=== PATIENT | female | born 1960 | race Caucasian/White ===

== ENCOUNTER → 2016-12-17 | Outpatient (CLI) | payer OTHER ==
[~2016-12-17] MED LIST: ALLO1TAB51 PO; ATEN-173 PO; CLB/200 PO; ESTR1TAB2 PO; FLUV100T2 PO; MULT-506 PO; SUMA100T15 PO; TRIATAB3 PO; URC10 PO
[2016-12-17 18:28] LABS: ALT/SGPT 33 U/L (12-78); AST/SGOT 28 U/L (15-37); BLOOD UREA NITROGEN 18 mg/dl (7-18); CALCIUM 8.7 mg/dl (8.5-10.1); CARBON DIOXIDE 29 mmol/L (21-32); CHLORIDE 103 mmol/L (98-107); CREATININE 0.79 mg/dl (0.60-1.20); GLUCOSE 76 mg/dl (70-99); POTASSIUM 3.9 mmol/L (3.5-5.1); SODIUM 139 mmol/L (136-145)
[2016-12-17 18:38] LABS: ALB/GLOB RATIO 0.9 (0.9-2); ALKALINE PHOSPHATASE 66 U/L (45-117)
[2016-12-18 06:14] LABS: ESTIMATED AVERAGE GLUCOSE 114 mg/dl; HA1C FLAG Normal (Normal)
== END | disposition home or self-care (01) ==
LOC: C.LABMFLN 12:17
PROVIDERS: ATTEND Family Medicine
DX: I10 Essential (primary) hypertension (principal); R53.83 Other fatigue

== ENCOUNTER → 2017-01-16 | Outpatient (CLI) | payer OTHER ==
--- NOTE | 2017-01-16 10:59 | DIAGNOSTIC IMAGING REPORT ---
KUB HISTORY: Acute pain and discomfort in the region of the urinary bladder with painful urination. N20.0 [id number] COMPARISON: KUB 03/11/2015. FINDINGS: The bowel gas pattern is non-obstructive. Moderate stool burden. There is no organomegaly. Bilateral nephrolithiasis is again seen with the previously noted 6 mm calculus of the interpolar right kidney not definitely visualized on today's study. No definite ureteral calculi identified. Calcifications of the pelvis suggest phleboliths.. No pneumoperitoneum or pneumatosis. No fracture. Right hip arthroplasty. Prior posterior decompression with discectomy, interbody kayden and screw fusion at L4-S1. IMPRESSION: 1. Bilateral nephrolithiasis with previously noted 6 mm calculus of the interpolar right kidney no longer identified. 2. No definite ureteral calculi. Calcifications of the pelvis suggest phleboliths. 3. Moderate stool burden. Electronically signed by: Bradley Guy M.D. 01/16/2017 10:58 AM Dictated Date/Time: 01/16/2017 10:55 AM
== END | disposition home or self-care (01) ==
LOC: C.RAD 10:20
PROVIDERS: ATTEND Urology
DX: N20.0 Calculus of kidney (principal)

== ENCOUNTER 2021-08-30 11:09 | Observation (INO) ==
--- NOTE | 2021-08-16 09:14 | PAT Medication Instructions ---
Medication Instructions Date of Service August 16, 2021 Home Medications ascorbic acid (vitamin C) 1,000 mg tablet 1 g PO QAM atenolol 25 mg tablet 25 mg PO HS atorvastatin 10 mg tablet 10 mg PO HS cholecalciferol (vitamin D3) 25 mcg (1,000 unit) chewable tablet 25 mcg PO QAM clonazepam 0.5 mg tablet 0.5 mg PO DAILY PRN 0 duloxetine 60 mg capsule,delayed release 60 mg PO QAM fluvoxamine 100 mg tablet 300 mg PO HS meloxicam 15 mg tablet 15 mg PO QAM multivitamin 1 tab PO QAM quetiapine 100 mg tablet (Seroquel) 150 mg PO HS sumatriptan succinate 100 mg tablet 100 mg PO UD PRN triamterene 37.5 mg-hydrochlorothiazide 25 mg tablet 1 tab PO QAM vitamin B complex 1 tab PO QAM levothyroxine 50 mcg tablet (Synthroid) 50 mcg PO QAM ASK your surgeon for instructions meloxicam 15 mg tablet 15 mg PO QAM DO NOT take the morning of surgery ascorbic acid (vitamin C) 1,000 mg tablet 1 g PO QAM cholecalciferol (vitamin D3) 25 mcg (1,000 unit) chewable tablet 25 mcg PO QAM multivitamin 1 tab PO QAM triamterene 37.5 mg-hydrochlorothiazide 25 mg tablet 1 tab PO QAM vitamin B complex 1 tab PO QAM Take morning of surgery With a small sip of water, OTHERWISE NOTHING TO EAT OR DRINK AFTER MIDNIGHT: clonazepam 0.5 mg tablet 0.5 mg PO DAILY PRN (if needed) duloxetine 60 mg capsule,delayed release 60 mg PO QAM sumatriptan succinate 100 mg tablet 100 mg PO UD PRN (if needed) levothyroxine 50 mcg tablet (Synthroid) 50 mcg PO QAM Take evening before surgery atenolol 25 mg tablet 25 mg PO HS atorvastatin 10 mg tablet 10 mg PO HS clonazepam 0.5 mg tablet 0.5 mg PO DAILY PRN (if needed) fluvoxamine 100 mg tablet 300 mg PO HS quetiapine 100 mg tablet (Seroquel) 150 mg PO HS sumatriptan succinate 100 mg tablet 100 mg PO UD PRN (if needed) Other Notes If you have any questions please call us at [phone] or [phone] or [phone] or [phone]
--- NOTE | 2021-08-17 09:16 | Anesthesiology Consultation ---
Date of Service August 17, 2021 Assessment & Plan (1) Encounter for pre-operative examination: - surgeon ordered medical clearance. - COVID screening: Per assessment on 08/17/2021: Travel screen negative, no known COVID-19 positive contacts or current COVID-19 related symptoms in past 2 weeks. Patient vaccinated. Surgeon arranging preop COVID testing, scheduled 08/25/2021. Awaiting results. Chart Review Chart Review: Pending: Refer to Additional Notes / Consult section and Patient seen in Pre Admission Testing Teaching & Discussion Pre-Anesthesia Teaching/Discussion Notes: Instructed NPO after midnight before surgery, except medications with 15 cc of water. Medication instructions provided according to the PAT guidelines. History Surgery Operation Date: 08/30/21 12:45 Proposed Procedures p L3-L4 Decompression and Fusion, L4-S1 Hardware Removal, Spinal Cord Monitoring - Flip Briscoe, DO Height/Weight Height: 5 ft 6 in Weight: 114.6 kg Allergies Allergy/AdvReac Type Severity Reaction Status Date / Time Iodinated Contrast Media Allergy Intermediate HIVES Verified 08/16/21 08:24 adhesive Allergy Mild RASH Verified 08/16/21 08:24 pollen extracts Allergy Unknown POLLEN,TREE, Verified 08/16/21 08:24 DOG AND CAT DANDER-COUGH, SNEEZING sulindac Allergy Unknown THROAT Verified 08/16/21 08:24 SWELLED cortisone AdvReac Unknown PT Verified 08/17/21 09:43 DEVELOPS RASH AND FLUSHING ON FACE AND CHEST Medications Home Medications Medication Instructions Recorded Confirmed Last Taken ascorbic acid (vitamin C) 1,000 mg 1 g PO QAM tab 06/23/21 08/16/21 Unknown tablet atenolol 25 mg tablet 25 mg PO HS 06/23/21 08/16/21 Unknown atorvastatin 10 mg tablet 10 mg PO HS 06/23/21 08/16/21 Unknown cholecalciferol (vitamin D3) 25 25 mcg PO QAM 06/23/21 08/16/21 Unknown mcg (1,000 unit) chewable tablet clonazepam 0.5 mg tablet 0.5 mg PO DAILY PRN 06/23/21 08/16/21 Unknown duloxetine 60 mg capsule,delayed 60 mg PO QAM 06/23/21 08/16/21 Unknown release fluvoxamine 100 mg tablet 300 mg PO HS tab 06/23/21 08/16/21 Unknown meloxicam 15 mg tablet 15 mg PO QAM 06/23/21 08/16/21 Unknown multivitamin 1 tab PO QAM 06/23/21 08/16/21 Unknown quetiapine 100 mg tablet (Seroquel) 150 mg PO HS tab 06/23/21 08/16/21 Unknown sumatriptan succinate 100 mg tablet 100 mg PO UD PRN tab 06/23/21 08/16/21 Unknown triamterene 37.5 1 tab PO QAM 06/23/21 08/16/21 Unknown mg-hydrochlorothiazide 25 mg tablet vitamin B complex 1 tab PO QAM 06/23/21 08/16/21 Unknown levothyroxine 50 mcg tablet 50 mcg PO QAM 08/16/21 08/16/21 Unknown (Synthroid) Past Medical History Medical History (Updated 08/17/21 @ 09:45 by Aurora Casey PA-C) Acute ITP related to > no issues since Anxiety Degenerative disc disease GERD (gastroesophageal reflux disease) no meds-controlled with diet and TUMS prn, stable per pt History of blood transfusion 1984-ITP History of COVID-2019 > not hospitalized Hyperlipidemia Hypertension controlled, stable per pt Hypothyroidism Lumbar stenosis with neurogenic claudication Migraine Slow to wake up after anesthesia on occasion Patient denies h/o stroke, seizures, heart attack, heart failure, DM, or blood clots. Exercise / Class Metabolic Activity II 4-5 Yardwork/Stairs/Walk up hill (chronic SOB with 1 FOS, states echo and EKG by PCP were negative and it was attributed to COVID illness; denies change or worsening, denies CP) Past Family History Family History Grandmother (Paternal) Diabetes Mother Diabetes Past Surgical History Surgical History Fusion of spine lumbar unsure of numbers History of ankle surgery right History of section x2 History of cholecystectomy History of colonoscopy History of esophagogastroduodenoscopy (EGD) History of hysterectomy History of lithotripsy x several History of tooth extraction History of total hip arthroplasty right Past Anesthesia History Other (occ slow to wake up-denies re-intubation or unanticipated hospitaliz ation; brother with PONV) History of PONV History of PONV (denies needing scop patch) and Hx of Motion Sickness Social History Smoking Status: Never smoker Do You Dip or Chew Tobacco: No Hx Alcohol Use: Yes alcohol intake frequency: holidays/special occasions only Hx Substance Use: No substance use type: does not use Review of Systems Snoring, denies witnessed apneas. She states sleep study several yrs ago inconclusive. Patient denies chest pain, shortness of breath, fever, chills, cough, wheezing, or palpitations. Physical Exam Vital Signs Vitals BP 115/79 P 73 TEMP 98.6 SP02 98% on RA RESP 17 Physical Thick neck Full cervical extension range of motion without pain TMD < 3 finger breaths Mallampati Score 3 Dentition: intact, several missing teeth; denies chipped or loose teeth, caps/crowns, implants or bridges Lungs: normal respiratory effort. Clear throughout to auscultation, no adventitious breath sounds Cardiac: regular rate and rhythm, no murmurs noted Carotid arteries: negative bruit bilat Lab Results Anesthesia Preop Results Results Anesthesia Widget: WBC 5.57 K/uL (4.8-10.8) 08/17/21 Hgb 14.7 g/dL (12.0-16.0) 08/17/21 Hct 44.4 % (37-47) 08/17/21 Plt 232 K/uL (130-400) 08/17/21 Na 140 mmol/L (136-145) 08/17/21 K 4.3 mmol/L (3.5-5.1) 08/17/21 Cl 102 mmol/L (98-107) 08/17/21 CO2 29 mmol/L (21-32) 08/17/21 BUN 20 mg/dl (6-23) 08/17/21 Creat 0.84 mg/dl (0.6-1.2) 08/17/21 Glucose Level 109 mg/dl (70-99(Fasting)) H 08/17/21 PT 10.4 Seconds (9.0-12.0) 08/17/21 PTT 27.7 Seconds (21.0-31.0) 08/17/21 INR 1.0 (0.9-1.1) 08/17/21 Urine Color Yellow 08/17/21 Urine Appearance Clear (Clear) 08/17/21 Urine pH 6.5 (4.5-7.5) 08/17/21 Urine Specific [place] 1.019 (1.000-1.030) 08/17/21 Urine Protein Negative (Negative) 08/17/21 Urine Glucose (UA) Negative (Negative) 08/17/21 Urine Ketones Negative (Negative) 08/17/21 Urine Blood Negative (Negative) 08/17/21 Urine Nitrite Negative (Negative) 08/17/21 Urine Bilirubin Negative (Negative) 08/17/21 Urine Urobilinogen Negative (Negative) 08/17/21 Urine Leukocyte Esterase 2+ (Negative) H 08/17/21 Urine WBC (Auto) 5-10 /hpf (0-5) H 08/17/21 Urine RBC (Auto) 0-4 /hpf (0-4) 08/17/21 Urine Hyaline Casts (Auto) 0 /lpf (0-5) 08/17/21 Urine Epithelial Cells (Auto) >30 /lpf (0-5) H 08/17/21 Urine Bacteria (Auto) Negative (Negative) 08/17/21 Blood Type O Positive 08/17/21 Antibody Screen NEGATIVE 08/17/21 Testing Electrocardiogram Date: 08/17/21 NSR, rate 74 bpm Chest X-Ray Date: 08/17/21 The cardiomediastinal silhouette is unremarkable. The lungs and pleural spaces are clear. There is no pneumothorax. The skeletal structures are osteopenic. Degenerative changes noted in the thoracic spine. The bony thorax appears intact. Cholecystectomy clips are noted in the upper abdomen. IMPRESSION: No active disease in the chest. Echocardiogram Date: 03/29/20 EF 65% Normal LV size and systolic function No cLVH Data inconclusive for analysis of diastolic function No significant valvular abnormalities
[~2021-08-30 11:09] MED LIST changes: +ACETAMINOPHEN 500 MG TAB PO SCH; -ALLO1TAB51 PO; -ATEN-173 PO; -CLB/200 PO; +CeleBREX 200 MG CAP PO SCH; -ESTR1TAB2 PO; -FLUV100T2 PO; +GABAPENTIN 600 MG DOSE PO SCH; +LR 15ML/HR IV SCH; -MULT-506 PO; -SUMA100T15 PO; -TRIATAB3 PO; -URC10 PO; +[UNRECOGNIZED DRUG - REMARK] SCH; +ceFAZolin 2000MG 2,000 MG/15 ML SYR IV SCH
[2021-08-30] MEDS ORDERED: Nursing to Pharmacy Communication SCH (12:00)
[2021-08-30] MEDS ORDERED: fentaNYL citrate 100 MCG/2 ML VIAL ONE ×3 (13:05→16:40)
[2021-08-30] MEDS ORDERED: MIDAZOLAM HCL 1 MG/ML 2ML VIAL ONE (13:05)
--- NOTE | 2021-08-30 13:11 | History & Physical Report ---
Date of Service August 30, 2021 Assessment & Plan (1) Lumbar stenosis with neurogenic claudication: Plan: L3-L4 decompression fusion, L4-S1 hardware removal History of Present Illness Chief Complaint: Back and leg pain Primary Care Provider: Marla Eric DO This is a 61-year-old female who presents with chronic chest and back and bilateral leg pain after failed extensive course of nonoperative care she is here for surgical invention. Allergies Allergy/AdvReac Type Severity Reaction Status Date / Time Iodinated Contrast Media Allergy Intermediate HIVES Verified 08/30/21 11:38 adhesive Allergy Mild RASH Verified 08/30/21 11:38 pollen extracts Allergy Unknown POLLEN,TREE, Verified 08/30/21 11:38 DOG AND CAT DANDER-COUGH, SNEEZING sulindac Allergy Unknown THROAT Verified 08/30/21 11:38 SWELLED cortisone AdvReac Unknown PT Verified 08/30/21 11:38 DEVELOPS RASH AND FLUSHING ON FACE AND CHEST Home Medications Medication Instructions Recorded Confirmed Type ascorbic acid (vitamin C) 1,000 mg 1 g PO QAM tab 06/23/21 08/30/21 History tablet atenolol 25 mg tablet 25 mg PO HS 06/23/21 08/30/21 History atorvastatin 10 mg tablet 10 mg PO HS 06/23/21 08/30/21 History cholecalciferol (vitamin D3) 25 25 mcg PO QAM 06/23/21 08/30/21 History mcg (1,000 unit) chewable tablet clonazepam 0.5 mg tablet 0.5 mg PO DAILY PRN 06/23/21 08/30/21 History duloxetine 60 mg capsule,delayed 60 mg PO QAM 06/23/21 08/30/21 History release fluvoxamine 100 mg tablet 300 mg PO HS tab 06/23/21 08/30/21 History meloxicam 15 mg tablet 15 mg PO QAM 06/23/21 08/30/21 History multivitamin 1 tab PO QAM 06/23/21 08/30/21 History quetiapine 100 mg tablet (Seroquel) 150 mg PO HS tab 06/23/21 08/30/21 History sumatriptan succinate 100 mg tablet 100 mg PO UD PRN tab 06/23/21 08/30/21 History triamterene 37.5 1 tab PO QAM 06/23/21 08/30/21 History mg-hydrochlorothiazide 25 mg tablet vitamin B complex 1 tab PO QAM 06/23/21 08/30/21 History levothyroxine 50 mcg tablet 50 mcg PO QAM 08/16/21 08/30/21 History (Synthroid) Past Med/Surg History Medical History Acute ITP related to > no issues since Anxiety Degenerative disc disease GERD (gastroesophageal reflux disease) no meds-controlled with diet and TUMS prn, stable per pt History of blood transfusion 1984-ITP History of COVID-19 2019 > not hospitalized Hyperlipidemia Hypertension controlled, stable per pt Hypothyroidism Lumbar stenosis with neurogenic claudication Migraine Slow to wake up after anesthesia on occasion Surgical History Fusion of spine lumbar unsure of numbers History of ankle surgery right History of section x2 History of cholecystectomy History of colonoscopy History of esophagogastroduodenoscopy (EGD) History of hysterectomy History of lithotripsy x several History of tooth extraction History of total hip arthroplasty right Family History Grandmother (Paternal) Diabetes Mother Diabetes Social History Smoking Status: Never smoker Second Hand Exposure: No; Do You Dip or Chew Tobacco: No; Tobacco Cessation Education Requested by Patient: No Hx Alcohol Use: Yes Hx Substance Use: No Preferred Language: [place] Communication Ability: Effective Register Of Deeds Required: No Beliefs That Will Affect Care: None Current Living Situation: Spouse Other Information That Helps Us Care for You: No Feels Safe at Home: Yes Safety Concerns: Feels Safe At This Time Assistive Devices: Glasses Physical Exam Physical Exam: Patient is alert and oriented Heart regular rate and rhythm Lungs clear Results & Data Results & Data ([facility]) Vital Signs (Past 12 Hours) Vital Signs Temp Pulse Resp BP Pulse Ox 08/30/21 11:44 37 C 96 H 18 142/81 H 95
--- NOTE | 2021-08-30 13:11 | History & Physical Bridge Note ---
Date of Service August 30, 2021 History & Physical Bridge Note I have examined the patient, reviewed the History & Physical and in the interval since the performance of the History & Physical I have noted the following changes of clinical significance: no changes noted
[2021-08-30] MEDS ORDERED: ceFAZolin 330 MG/ML 1 GM VIAL ONE (13:44)
[2021-08-30] MEDS ORDERED: BUPIVACAINE/EPINEPHRINE 0.25% 1:200,000 30 ML VIAL ONE (13:44)
[2021-08-30] MEDS ORDERED: PROPOFOL IV EMULSION 10 MG/ML 20 ML VIAL IV ONE (16:02)
[2021-08-30] MEDS ORDERED: ROCURONIUM BROMIDE 10 MG/ML 5 ML VIAL IV ONE (16:02)
[2021-08-30] MEDS ORDERED: NEOSTIGMINE METHYLSULFATE 1 MG/ML 10ML VIAL ONE (16:02)
[2021-08-30] MEDS ORDERED: SUCCINYLCHOLINE CHLORIDE 20 MG/ML 10 ML VIAL IV ONE (16:02)
[2021-08-30] MEDS ORDERED: LIDOCAINE 2% 2 ML VIAL/AMP(20MG/ML) INFIL ONE (16:02)
[2021-08-30] MEDS ORDERED: GLYCOPYRROLATE 0.2 MG/ML VIAL ONE (16:02)
--- NOTE | 2021-08-30 16:07 | Operative Report ---
Post Operative Report Pre & Post Diagnosis Operation Date: 08/30/21 12:45 Pre-Op Diagnosis: Spinal Stenosis, Lumbar Region with Neurogenic Claudication Post-Op Diagnosis: Spinal Stenosis, Lumbar Region with Neurogenic Claudication I identified the patient and participated in the time-out.: Yes Procedure Operation Date: 08/30/21 12:45 Actual Procedures #1 removal of posterior instrumentation L4-L5 L5-S1. #2 exploration of fusion L4-L5 L5-S1. #3 lumbar decompression bilateral medial facetectomies and foraminotomies L to L3 L3-L4. #4 posterior spinal fusion L3-L4. #5 placement posterior instrumentation L3-L4. #6 interbody fusion L3-L4. #7 placement of Spira 13 x 26 mm cage at L3-L4. #8 placement locally harvested morselized autograft in the posterior gutters. #9 placement of I factor combined with V toss in the interbody space and posterior lateral gutters. Surgeon Flip Briscoe, DO Product Manufacturing Professional Hiwot Decker Estimated Blood Loss 250 Findings See Below The patient is 5 foot 6 weighing over 115 kg with a BMI in excess of 41. Patient's body habitus did contribute to significant technical difficulty required deepest retractors longus instruments in order to perform her procedure. This had at least 50% increased operative time. Specimens None Indications This is a 61-year-old female known to me the presents with above-mentioned diagnosis after failed course of nonoperative care is here for the above- mentioned procedure. Description of Procedure Patient was met with identified informed consent obtained. Patient was then taken to the operative suite underwent ablation placed in a prone position the Tristan table on top of the Ever frame. All bony prominences well-padded eyes inspected to ensure no external pressure placed upon the. This point lumbar spine was prepped and draped in normal sterile fashion. Sharp dissection with the assistance of Bovie cautery was performed down to and exposing the lamina and transverse processes of L3 and instrumentation at L4-L5 and S1 levels bilaterally. I then proceeded move the hardware bilaterally explore the fusion mass noting it to be mature and intact. Then performed a complete laminectomy of L3 partial laminectomy of L2 including bilateral medial facetectomies and foraminotomies addressing severe spinal stenosis. Pedicle screws then placed in L3-L4 bilaterally with assistance of fluoroscopy and the proper sized kayden placed. Bilateral transforaminal approach on the right a complete discectomy of L3-L4 was performed endplates curetted to subcortical bleeding bone and a 13 x 26 mm spiral cage filled with I factor was tapped in position. The rods then compressed locked in final position bilaterally. The transverse processes of L3 and L4 burred to subcortically bone. I factor combined with V toss and locally harvested morselized autograft was placed in the posterior gutters. 15 round ELE drain inserted. The incision was then closed with 1 Vicryl the fascia 2-0 Vicryl subcutaneously and 4 Monocryl for final skin closure. Steri-Strip sterile dressings placed. Patient waken taken to PACU stable condition. Please note spinal cord monitoring was utilized at the procedure no changes noted. Lastly Hiwot Decker was present out the entire surgery and while the patient positioning complex portions of the surgery and fascial closure. I attest to the content of the Intraoperative Record and any orders documented therein. Any exceptions are noted below.
--- NOTE | 2021-08-30 16:11 | Fluoroscopy Report ---
FL lumbar spine 2-3V CLINICAL HISTORY: L3-L4 DECOMPRESSION FUSION L4-S1 HW REMOVAL COMPARISON STUDY: None. FLUOROSCOPY TIME: 15 second. FINDINGS: 2 fluoroscopic spot images of the lumbar spine demonstrate posterior decompression and fusi on at L3-L4 with pedicle screws and rods. A disc spacer is in place. The hardware appears intact. IMPRESSION: Fluoroscopic assistance provided for L3-L4 posterior decompression and fusion. ACT 112: Negative or not required by law. Electronically signed by: Martín Kang M.D. 08/30/2021 4:10 PM
[2021-08-30] MEDS ORDERED: FLOSEAL HEMOSTATIC MATRIX 10ML TOP ONE (16:25)
[2021-08-30] MEDS ORDERED: ePHEDrine sulfate 50 MG/ML AMP IV PRN (16:40)
[2021-08-30] MEDS ORDERED: ONDANSETRON INJ 2 MG/ML 2 ML VIAL IV PRN ×2 (16:40→18:55)
[2021-08-30] MEDS ORDERED: ATROPINE SULFATE 0.1 MG/ML 10ML SYR IV PRN (16:40)
[2021-08-30] MEDS ORDERED: MEPERIDINE HCL 25 MG/ML CARP/VIAL IV PRN (16:40)
[2021-08-30] MEDS: fentaNYL citrate 100 MCG/2 ML VIAL IV PRN ×4 (16:45→17:00)
[2021-08-30] MEDS: MoRPHine SULFATE 10 MG/ML CARP/VIAL IV PRN ×5 (17:08→17:30)
[2021-08-30] MEDS ORDERED: HYDROmorphone INJ 2 MG/ML SYR/VIAL IV PRN (17:38)
--- NOTE | 2021-08-30 18:23 | Anesthesiology Progress Note ---
Date of Service August 30, 2021 Anesthesia Post Procedure Vital Signs Vital Signs: Temp Pulse Pulse Resp BP Pulse Ox 08/30/21 18:10 82 16 103/76 99 08/30/21 18:00 36.8 C 94 H 12 117/71 99 08/30/21 17:50 81 12 117/74 99 08/30/21 17:40 83 12 96/71 L 98 08/30/21 17:30 88 12 121/84 99 08/30/21 17:20 83 12 125/72 100 08/30/21 17:10 79 12 133/83 92 08/30/21 17:00 75 14 135/89 100 08/30/21 16:50 82 14 121/85 100 08/30/21 16:40 84 15 144/78 H 100 08/30/21 16:31 36.1 C L 87 14 153/75 H 94 08/30/21 11:44 37 C 96 H 18 142/81 H 95 Pain Intensity Back: Pain Intensity: 6 Transfer of Care Handoff Completed per policy Notes Mental Status: alert / awake / arousable Patient Amnestic to Procedure: Yes Nausea / Vomiting: adequately controlled Pain: adequately controlled Airway Patency, RR, SpO2: stable & adequate BP & HR: stable & adequate Hydration State: stable & adequate Anesthetic Complications: no major complications apparent and Pt Satisfied with anesthetic care
[2021-08-30] MEDS ORDERED: ACETAMINOPHEN 500 MG TAB PO PRN (18:55)
[2021-08-30] MEDS ORDERED: DO NOT ADMINISTER FLU VACCINE PRN (18:55)
[2021-08-30] MEDS ORDERED: ALUMINUM/MAGNESIUM SUSP 30 ML UDC PO PRN (18:55)
[2021-08-30] MEDS ORDERED: diphenhydrAMINE Capsule 25 MG CAP PO PRN (18:55)
[2021-08-30] MEDS ORDERED: hydrOXYzine HCl 25 MG TAB PO PRN (18:55)
[2021-08-30] MEDS ORDERED: LORazepam 2 MG/1 ML VIAL IV PRN (18:55)
[2021-08-30] MEDS ORDERED: METOCLOPRAMIDE HCL INJ 5 MG/ML 2 ML VIAL IV PRN (18:55)
[2021-08-30] MEDS ORDERED: NALOXONE HCL 0.4 MG/1 ML VIAL/CARP IV PRN (18:55)
[2021-08-30] MEDS ORDERED: HYDROmorphone INJ 0.5 MG/0.5 ML SYR IV PRN (18:55)
[2021-08-30] MEDS ORDERED: ONDANSETRON 4 MG OD TAB PO PRN (18:55)
[2021-08-30] MEDS ORDERED: MAGNESIUM HYDROXIDE SUSP 30 ML UDC PO PRN (18:55)
[2021-08-30] MEDS ORDERED: FAMOTIDINE 20 MG TAB PO PRN (18:55)
[2021-08-30] MEDS ORDERED: SOD PHOSPHATE/SOD BIPHOSPHATE ENEMA 132 ML BTL PR PRN (18:55)
[2021-08-30] MEDS ORDERED: LORazepam 0.5 MG TAB PO PRN (18:55)
[2021-08-30] MEDS ORDERED: bisacodyL 10 MG SUPP PR PRN (18:55)
[2021-08-30] MEDS ORDERED: DO NOT ADMINISTER PNEUMOCOCCAL VACCINE PRN (18:55)
[2021-08-30] MEDS ORDERED: PROMETHAZINE HCL 12.5 MG in SODIUM CHLORIDE 0.9% 50 ML IV PRN (18:55)
[2021-08-30] MEDS ORDERED: ACETAMINOPHEN 1,000 MG/100 ML VIAL IV PRN (18:55)
[2021-08-30] MEDS: LACTATED RINGER'S 1,000 ML IV SCH (19:29)
[2021-08-30] MEDS: HYDROmorphone INJ 1 MG/ML SYRINGE IV PRN (19:41)
[2021-08-30] MEDS: QUEtiapine FUMARATE 100 MG TABLET PO SCH (20:23)
[2021-08-30] MEDS: DOCUSATE SODIUM/SENNA 50/8.6MG TAB PO SCH (20:24)
[2021-08-30] MEDS: ATENOLOL 25 MG TABLET PO SCH (20:24)
[2021-08-30] MEDS: fluvoxaMINE MALEATE 50 MG TAB PO SCH (20:25)
[2021-08-30] MEDS: ATORVASTATIN 10 MG TAB PO SCH (20:25)
--- NOTE | 2021-08-30 20:41 | Hospitalist Consultation ---
Date of Consultation August 30, 2021 Assessment & Plan (1) Lumbar stenosis with neurogenic claudication: Final Assessment and Recommendations as follows : LSS status post surgery Clinically well hypertension, stable hyperlipidemia, on statin Rx hypothyroidism, on supplement OCD/mood disorder, stable Hold patient's home diuretics until a.m. kidney function resulted SCDs as per postop orders Thank you very much for this consultation. Dr. Christy will follow patient's progress. Text document was generated using [employer] voice recognition software. It may contain grammatical or spelling errors. Kindly contact undersigned for clarification of any documentation item in question. History of Present Illness Reason for Consultation: Medical l management Requesting Physician: Dr. Briscoe Attending Physician: Flip Briscoe, History of Present Illness PCP : Dr. Marla Eric (independent PCP) History obtained from patient and records. Medical history significant for hypertension, hyperlipidemia, IBS, hypothyroidism, OCD/mood disorder, urolithiasis. Last confinement 2014 under orthopedic service for elective right total hip arthroplasty. Patient underwent elective back surgery today for lumbar spinal stenosis. Tolerable pain postop. Patient denies chest pain, SOB. Medical History as above Surgical History : Back surgery, section, ankle surgery, kidney stone removal, cholecystectomy, GIN, hip replacement Family History : Colon cancer, DM, heart disease, dementia, stroke, Graves' disease Personal/Social history : Non-smoker, occasional EtOH intake, caregiver Allergies Allergy/AdvReac Type Severity Reaction Status Date / Time Iodinated Contrast Media Allergy Intermediate HIVES Verified 08/30/21 11:38 adhesive Allergy Mild RASH Verified 08/30/21 11:38 pollen extracts Allergy Unknown POLLEN,TREE, Verified 08/30/21 11:38 DOG AND CAT DANDER-COUGH, SNEEZING sulindac Allergy Unknown THROAT Verified 08/30/21 11:38 SWELLED cortisone AdvReac Unknown PT Verified 08/30/21 11:38 DEVELOPS RASH AND FLUSHING ON FACE AND CHEST Home Medications Medication Instructions Recorded Confirmed Type ascorbic acid (vitamin C) 1,000 mg 1 g PO QAM tab 06/23/21 08/30/21 History tablet atenolol 25 mg tablet 25 mg PO HS 06/23/21 08/30/21 History atorvastatin 10 mg tablet 10 mg PO HS 06/23/21 08/30/21 History cholecalciferol (vitamin D3) 25 25 mcg PO QAM 06/23/21 08/30/21 History mcg (1,000 unit) chewable tablet clonazepam 0.5 mg tablet 0.5 mg PO DAILY PRN 06/23/21 08/30/21 History duloxetine 60 mg capsule,delayed 60 mg PO QAM 06/23/21 08/30/21 History release fluvoxamine 100 mg tablet 300 mg PO HS tab 06/23/21 08/30/21 History meloxicam 15 mg tablet 15 mg PO QAM 06/23/21 08/30/21 History multivitamin 1 tab PO QAM 06/23/21 08/30/21 History quetiapine 100 mg tablet (Seroquel) 150 mg PO HS tab 06/23/21 08/30/21 History sumatriptan succinate 100 mg tablet 100 mg PO UD PRN tab 06/23/21 08/30/21 History triamterene 37.5 1 tab PO QAM 06/23/21 08/30/21 History mg-hydrochlorothiazide 25 mg tablet vitamin B complex 1 tab PO QAM 06/23/21 08/30/21 History levothyroxine 50 mcg tablet 50 mcg PO QAM 08/16/21 08/30/21 History (Synthroid) Patient History Medical History Acute ITP related to > no issues since Anxiety Degenerative disc disease GERD (gastroesophageal reflux disease) no meds-controlled with diet and TUMS prn, stable per pt History of blood transfusion 1984-ITP History of COVID-19 2019 > not hospitalized Hyperlipidemia Hypertension controlled, stable per pt Hypothyroidism Lumbar stenosis with neurogenic claudication Migraine Slow to wake up after anesthesia on occasion Surgical History Fusion of spine lumbar unsure of numbers History of ankle surgery right History of section x2 History of cholecystectomy History of colonoscopy History of esophagogastroduodenoscopy (EGD) History of hysterectomy History of lithotripsy x several History of tooth extraction History of total hip arthroplasty right Family History Grandmother (Paternal) Diabetes Mother Diabetes Social History Smoking Status: Never smoker Second Hand Exposure: No; Do You Dip or Chew Tobacco: No; Tobacco Cessation Education Requested by Patient: No Hx Alcohol Use: Yes Hx Substance Use: No Preferred Language: American Communication Ability: Effective Intelligence Engineer Required: No Beliefs That Will Affect Care: None Current Living Situation: Spouse Other Information That Helps Us Care for You: No Feels Safe at Home: Yes Safety Concerns: Feels Safe At This Time Assistive Devices: Glasses Review of Systems Review of Systems: As per HPI, all other systems reviewed and negative Physical Exam Physical Exam: GENERAL: Comfortable, pleasant, morbidly obese, no respiratory distress SKIN: Normal color, warm HEENT: [place] palpebral conjunctivae, no ptosis, dry buccal mucosa NECK : Supple, short neck, no tenderness CHEST : CTA, no tenderness HEART : RRR, no obvious murmurs ABDOMEN: Some distention, nontender EXTREMITIES : Minimal LE swelling, no LE tenderness, no other conspicuous deformities noted NEUROLOGIC : Coherent, no facial asymmetry, no other gross focality Results & Data Results & Data ([facility]) Vital Signs (Past 12 Hours) Vital Signs Temp Pulse Pulse Pulse Resp BP Pulse Ox 08/30/21 20:40 36.6 C 97 H 18 115/66 92 08/30/21 19:50 36.3 C L 91 H 16 127/66 92 08/30/21 19:15 36.6 C 99 H 18 125/77 92 08/30/21 18:40 36.7 C 89 14 97/55 L 95 08/30/21 18:20 88 12 123/75 92 08/30/21 18:10 82 16 103/76 99 08/30/21 18:00 36.8 C 94 H 12 117/71 99 08/30/21 17:50 81 12 117/74 99 08/30/21 17:40 83 12 96/71 L 98 08/30/21 17:30 88 12 121/84 99 08/30/21 17:20 83 12 125/72 100 08/30/21 17:10 79 12 133/83 92 08/30/21 17:00 75 14 135/89 100 08/30/21 16:50 82 14 121/85 100 08/30/21 16:40 84 15 144/78 H 100 08/30/21 16:31 36.1 C L 87 14 153/75 H 94 08/30/21 11:44 37 C 96 H 18 142/81 H 95 Laboratory Results Laboratory Results SARS-CoV-2, RNA, NAAT NEGATIVE (NEGATIVE) 08/30/21 11:27 Impressions Lumbar Spine X-Ray 08/30/21 12:45 FL lumbar spine 2-3V CLINICAL HISTORY: L3-L4 DECOMPRESSION FUSION L4-S1 HW REMOVAL COMPARISON STUDY: None. FLUOROSCOPY TIME: 15 second. FINDINGS: 2 fluoroscopic spot images of the lumbar spine demonstrate posterior decompression and fusion at L3-L4 with pedicle screws and rods. A disc spacer is in place. The hardware appears intact. IMPRESSION: Fluoroscopic assistance provided for L3-L4 posterior decompression and fusion. ACT 112: Negative or not required by law. Electronically signed by: Martín Kang M.D. 08/30/2021 4:10 PM
[2021-08-30] MEDS: ceFAZolin 2000MG 2,000 MG/15 ML SYR IV SCH (21:26)
[2021-08-31] MEDS: HYDROmorphone INJ 1 MG/ML SYRINGE IV PRN ×4 (00:13→16:18)
[2021-08-31] MEDS: LACTATED RINGER'S 1,000 ML IV SCH (04:20)
[2021-08-31] MEDS: POLYETHYLENE (MIRALAX) 17 GM PACK PO SCH ×4 (05:57→23:39)
[2021-08-31] MEDS: LEVOTHYROXINE SODIUM 50 MCG TABLET PO SCH (05:58)
[2021-08-31] MEDS: ceFAZolin 2000MG 2,000 MG/15 ML SYR IV SCH (05:59)
[2021-08-31] MEDS ORDERED: LACTATED RINGER'S 1,000 ML IV ONE (06:26)
[2021-08-31 06:47] LABS: Basophils # (auto) 0.01 K/uL (0-0.2); Basophils % (auto) 0.1 %; Eosinophils # (auto) 0.05 K/uL (0-0.5); Eosinophils % (auto) 0.7 %; Hematocrit (blood only) 35.6 % (37-47); Hemoglobin 11.5 g/dL (12.0-16.0); Immature Granulocytes # (auto) 0.05 K/uL (0.00-0.02); Immature Granulocytes % (auto) 0.7 %; Lymphocytes # (auto) 1.77 K/uL (1.2-3.4); Lymphocytes % (auto) 23.3 %; Mean Corpuscular Hemoglobin 32.3 pg (25-34); Mean Corpuscular Hgb Conc 32.3 g/dL (32-36); Monocytes # (auto) 0.64 K/uL (0.11-0.59); Monocytes % (auto) 8.4 %; Neutrophils # (auto) 5.09 K/uL (1.4-6.5); Neutrophils % (auto) 66.8 %; Platelet Count 189 K/uL (130-400); RDW Coefficient of Variation 13.4 % (11.5-14.5); RDW Standard Deviation 48.6 fL (36.4-46.3); Red Blood Count 3.56 M/uL (4.2-5.4); White Blood Count 7.61 K/uL (4.8-10.8)
[2021-08-31 07:03] LABS: Calcium 8.6 mg/dl (8.5-10.1); Creatinine Clr Calc Pharmacy 71.8 ml/min; Est GFR (African American) 64.3 ml/min; Est GFR (Non-African American) 55.5 ml/min; Potassium 4.4 mmol/L (3.5-5.1)
[2021-08-31] MEDS: traMADol HCL 50 MG TABLET PO PRN ×2 (08:02→14:25)
--- NOTE | 2021-08-31 08:17 | Orthopedic Progress Note ---
Date of Service August 31, 2021 Assessment & Plan (1) Lumbar stenosis with neurogenic claudication: Plan: This time initiate physical therapy monitor ELE operatively discharge home this weekend. Admission and Anticipated Discharge Date Admission Date: August 30, 2021 Subjective Patient's back pain is controlled leg symptoms improved Physical Exam Physical Exam: On exam she is in bed. She is comfortable. Is constricted testing. Results & Data ([facility]) Vital Signs (Past 12 Hours) Vital Signs Temp Pulse Resp BP Pulse Ox 08/31/21 07:40 36.7 C 73 16 107/62 96 08/31/21 03:59 36.7 C 83 18 134/76 94 08/30/21 22:36 36.4 C 87 16 105/67 92 08/30/21 20:40 36.6 C 97 H 18 115/66 92
[2021-08-31] MEDS: ASCORBIC ACID 500 MG TAB PO SCH (08:40)
[2021-08-31] MEDS: DULoxetine HCL 60 MG CAP PO SCH (08:40)
[2021-08-31] MEDS: dexAMETHasone 6 MG in SYRINGE 0 ML IV SCH (08:41)
[2021-08-31] MEDS: MULTIVITAMIN TAB PO SCH (08:41)
[2021-08-31] MEDS: CHOLECALCIFEROL 1,000 UNITS 25 MCG TAB PO SCH (08:41)
[2021-08-31] MEDS: VITAMIN B COMPLEX TAB PO SCH (08:41)
[2021-08-31] MEDS ORDERED: TRIAMTERENE/HCTZ 37.5/25MG TAB PO SCH (09:00)
[2021-08-31] MEDS: SUMAtriptan succinate 100 MG TAB PO PRN ×2 (09:43→20:21)
--- NOTE | 2021-08-31 16:34 | Hospitalist Progress Note ---
Date of Service August 31, 2021 Assessment & Plan (1) Lumbar stenosis with neurogenic claudication: Plan: 61-year-old lady with PMH of lumbar spinal stenosis, HTN, HLD, IBS, hypothyroidism, OCD/mood disorder, urolithiasis who underwent elective back surgery 08/30/2021 for lumbar spinal stenosis is being managed for the following: #. Lumbar stenosis with neurogenic claudication #. S/p lumbar decompression and fusion on 08/30/[address] Briscoe #. Acute blood loss anemia Patient is status post surgery, working with physical therapy, doing well. PT OT, DVT prophylaxis, pain control per primary team. Hemoglobin dropped to 11.5, acute blood loss anemia secondary to surgery. Monitor hemoglobin daily and as needed. Patient without any symptoms. Incentive spirometer. #. Other chronic medical conditions: HTN, HLD, mood disorder/OCD Continue with/resume home meds as and when appropriate. #. DVT prophylaxis: Per primary team #. Full code. Admission and Anticipated Discharge Date Admission Date: August 30, 2021 Subjective Patient seen and examined at bedside as a follow-up of lumbar spinal stenosis status post lumbar surgery by Dr. Briscoe on 08/30/2021. Patient was sitting up in chair, on room air, NAD, no new acute events overnight. Patient reports pain under control, has not moved bowel after surgery, moving gas, eating okay. Patient denies headache/dizziness/chest pain/palpitations/belly pain/other review of symptoms. Physical Exam Physical Exam: GENERAL: Alert and oriented x3. NAD, on RA. HEENT: No pallor, no icterus. Pupils equal, round and reactive to light. Oral mucosa moist. NECK: No JVD, no neck masses. HEART: S1 and S2 heard. Regular rate and rhythm. No murmur, no gallop. RESPIRATORY SYSTEM: Normal AP diameter. No accessory muscle use. No wheezing, no crackles. ABDOMEN: Soft, bowel sounds present, nontender, no distention. CENTRAL NERVOUS SYSTEM: No facial droop. Speech is clear. Obeys simple commands. Moves extremities. EXTREMITIES: No edema, no erythema seen. Low back with clean dressing without soakage, ELE drain in situ with serosanguineous collection noted. Results & Data Results & Data ([facility]) Vital Signs (Past 12 Hours) Vital Signs Temp Pulse Resp BP BP Pulse Ox 08/31/21 15:14 37 C 75 16 125/75 96 08/31/21 07:40 36.7 C 73 16 107/62 96
[2021-08-31] MEDS: ATENOLOL 25 MG TABLET PO SCH (20:04)
[2021-08-31] MEDS: ATORVASTATIN 10 MG TAB PO SCH (20:05)
[2021-08-31] MEDS: fluvoxaMINE MALEATE 50 MG TAB PO SCH (20:05)
[2021-08-31] MEDS: DOCUSATE SODIUM/SENNA 50/8.6MG TAB PO SCH (20:05)
[2021-08-31] MEDS: QUEtiapine FUMARATE 100 MG TABLET PO SCH (21:51)
[2021-09-01] MEDS: POLYETHYLENE (MIRALAX) 17 GM PACK PO SCH ×2 (05:56→13:08)
[2021-09-01] MEDS: LEVOTHYROXINE SODIUM 50 MCG TABLET PO SCH (05:56)
[2021-09-01] MEDS: traMADol HCL 50 MG TABLET PO PRN (06:12)
[2021-09-01 08:14] LABS: Hematocrit (blood only) 31.4 % (37-47); Hemoglobin 10.6 g/dL (12.0-16.0); Mean Corpuscular Hemoglobin 32.8 pg (25-34); Mean Corpuscular Hgb Conc 33.8 g/dL (32-36); Mean Corpuscular Volume 97.2 fL (80-100); Mean Platelet Volume 10.1 fL (7.4-10.4); Platelet Count 173 K/uL (130-400); RDW Coefficient of Variation 13.1 % (11.5-14.5); RDW Standard Deviation 46.2 fL (36.4-46.3); Red Blood Count 3.23 M/uL (4.2-5.4); White Blood Count 7.51 K/uL (4.8-10.8)
[2021-09-01] MEDS: dexAMETHasone 6 MG in SYRINGE 0 ML IV SCH (09:01)
[2021-09-01] MEDS: DULoxetine HCL 60 MG CAP PO SCH (09:01)
[2021-09-01] MEDS: VITAMIN B COMPLEX TAB PO SCH (09:01)
[2021-09-01] MEDS: ASCORBIC ACID 500 MG TAB PO SCH (09:01)
[2021-09-01] MEDS: CHOLECALCIFEROL 1,000 UNITS 25 MCG TAB PO SCH (09:01)
[2021-09-01] MEDS: MULTIVITAMIN TAB PO SCH (09:01)
[2021-09-01] MEDS: oxyCODONE HCL IR 5 MG TAB (IMMEDIATE RELEASE) PO PRN ×2 (09:09→13:17)
--- NOTE | 2021-09-01 10:19 | Discharge Summary ---
Date of Service September 01, 2021 Admission HPI Per Admitting Provider This is a 61-year-old female who presents with chronic chest and back and bilateral leg pain after failed extensive course of nonoperative care she is here for surgical invention. Principal Diagnosis Lumbar spinal stenosis with neurogenic claudication Discharge Data Allergies Allergy/AdvReac Type Severity Reaction Status Date / Time Iodinated Contrast Media Allergy Intermediate HIVES Verified 08/30/21 11:38 adhesive Allergy Mild RASH Verified 08/30/21 11:38 pollen extracts Allergy Unknown POLLEN,TREE, Verified 08/30/21 11:38 DOG AND CAT DANDER-COUGH, SNEEZING sulindac Allergy Unknown THROAT Verified 08/30/21 11:38 SWELLED cortisone AdvReac Unknown PT Verified 08/30/21 11:38 DEVELOPS RASH AND FLUSHING ON FACE AND CHEST Consultations 08/30/21 18:55 Consult Hospitalist Routine Procedures Performed Operation Date: 08/30/21 12:45 Actual Procedures p L3-L4 Decompression Fusion, iFactor Bone Putty, Spinal Cord Monitoring(Not Applicable) - Flip Briscoe DO s L4-S1 Hardware Removal,(Not Applicable) - Flip Briscoe DO Ordered Studies 08/30/21 12:45 FL lumbar spine 2-3V Routine Hospital Course (1) Lumbar stenosis with neurogenic claudication: Patient with lumbar decompression fusion tolerated so was taken to orthopedic for postop labor postop day 1 she was up and ambulating progress postop day #2. LEE drain decreasing appropriately. Pain well controlled. Subsequent discharge home. Discharge orders instructions from the chart for further review. Total Time Total Time Spent Total Time Spent (In Minutes): 20 minutes Discharge Plan Discharge Items Patient Disposition: Home - Self-Care Reason For Visit: Spinal Stenosis, Lumbar Region with Neurogenic Cla Discharge Diagnosis: Lumbar spinal stenosis with neurogenic claudication Activity: As commented below Non-emergency contact: Primary Care Provider Call non-emergency contact if: you have any medication questions Follow-up/Referrals: Marla Eric DO [Primary Care Provider] - Diet: Regular Addtl Attending Provider Instructions: ACTIVITY RECOMMENDATIONS: SELF CARE INSTRUCTIONS AFTER THORACIC/LUMBAR FUSIONS 1. You may walk to your tolerance. It is good exercise for your legs and back. Expect some back and intermittent leg aches and pains. 2. You may perform "counter-top" level activities (make a sandwich, jessica with a project, etc.). 3. No bending or lifting of more than 10 pounds or back twisting of any nature (roll like a log when turning in bed). 4. You may ride in a car for 20-30 minutes at a time. No driving until after your first visit with your doctor. 5. Frequent changes of position and restricting sitting to 30 minutes at a time will help limit the amount of back spasms and stiffness you may experience. 6. You may discontinue the use of ambulatory aids (cane, crutches, etc.) once your strength and confidence allow. 7. You may traveling nurse the shower and let water strike your incision when you arrive home at least once daily. Do not take a tub bath, sit in a hot tub or go into a swimming pool until after your first recheck in the office. SPECIAL CARE INSTRUCTIONS: VERY IMPORTANT TO READ AND REVIEW A. Your surgical incision has been closed with a cosmetic suture under the skin that will dissolve in about 6 weeks. In 14 days, you can use a pair of clean scissors and cut the suture that is left outside of the skin at the ends of your incision. 1. The small skin tapes can be removed 7 days after surgery if they have not fallen off by that point. 2. You may keep the wound open to air as much as possible to promote healing after post-op day number 5 unless told otherwise by your doctor. 3. If you think the wound looks like it is becoming infected (redness or worsening drainage) and/or you are experiencing fever, chill or worsening back pain and muscle spasms, contact the office so that we may evaluate you as soon as possible. B. Complications are uncommon, but please contact us if you have any signs or symptoms of: 1. wound infection (fever higher than 102.5 degrees F, redness, separation of wound, drainage, or increasing pain from the incision) 2. blood clots in legs (pain, swelling, redness and warmth in legs) 3. urinary tract infection (fever higher than 102.5 degrees F, burning upon urination or increased frequency of urination) 4. nerve problems (inability to walk on your toes or heels, numbness, loss of bowel or bladder control) 5. any other symptoms that concern you C. Please call the office at if you have any concerns or questions about your operation or recovery. D. No smoking! Smoking drastically decreases the chance of a solid fusion. E. Do not take any anti-inflammatory medications (Indocin, Advil, Motrin, Aspirin, Naprosyn, etc.) as these may inhibit the chance of a solid fusion. Tylenol is okay to take for pain. MANAGING PAIN AFTER SPINAL SURGERY 1. Narcotic medication is intended for short-term use and will be provided for surgical pain. Surgical pain usually lasts for a period of 4-6 weeks. Narcotic medication includes Percocet, Vicodin, Darvocet, Tylenol #3 or Lortab. 2. Longer-term pain is more appropriately treated with non-narcotic medication such as Tylenol ES. 3. Muscle spasm is not appropriately treated with narcotics. Muscle relaxers such as Soma, Flexeril or Skelaxin can be used along with Tylenol ES. 4. Remember that we all live with some "aches and pains". This is not unusual or uncommon after an injury or as we get older. a. Back pain is expected and may include muscle spasms for 4 to 6 weeks after surgery. The pain should gradually improve. If the pain worsens for no apparent reason, please contact the office. b. Intermittent leg pain may also be experienced and should not be concerned about unless it worsens for no apparent reason. If so, please contact the office. 5. We will provide appropriate medication within the normal guidelines of their prescribed use. We will also be very cautious and aware of potential abuse and extended duration of patients' medication needs. a. Pain medications are for your comfort and to assist with sleep and rest so that the tissue can heal. They are not provided in order to return to normal activity and should not be used through the day. To do so or worsening pain at night can result from ongoing tissue damage and development of tolerance to the prescribed medicine. 6. Please allow 2-3 days to process refills. Prescriptions will not be mailed but must be picked up at the office. FOLLOW UP VISIT: Keep your scheduled follow-up appointment. Any questions, please call the office at . Pending Studies at Discharge: No Stand-Alone Forms: My [employer], Smoking Cessation Medications and MD Order Prescriptions: New tramadol 50 mg tablet 50 mg PO Q6H PRN (Reason: pain, moderate) Qty: 30 RF: 0 oxycodone 5 mg tablet 5 mg PO Q6H PRN (Reason: pain, severe) Qty: 30 RF: 0 Continued atenolol 25 mg tablet 25 mg PO HS RF: 0 atorvastatin 10 mg tablet 10 mg PO HS RF: 0 duloxetine 60 mg capsule,delayed release(DR/EC) 60 mg PO QAM RF: 0 fluvoxamine 100 mg tablet 300 mg PO HS RF: 0 clonazepam 0.5 mg tablet 0.5 mg PO DAILY PRN (Reason: Anxiety) RF: 0 meloxicam 15 mg tablet 15 mg PO QAM RF: 0 multivitamin Tablet 1 tab PO QAM RF: 0 quetiapine [Seroquel] 100 mg tablet 150 mg PO HS RF: 0 sumatriptan succinate 100 mg tablet 100 mg PO UD PRN (Reason: Migraine Headache) RF: 0 triamterene-hydrochlorothiazid 37.5-25 mg tablet 1 tab PO QAM RF: 0 vitamin B complex Tablet 1 tab PO QAM RF: 0 ascorbic acid (vitamin C) 1,000 mg tablet 1 g PO QAM RF: 0 cholecalciferol (vitamin D3) 25 mcg (1,000 unit) tablet,chewable 25 mcg PO QAM RF: 0 levothyroxine [Synthroid] 50 mcg Tablet 50 mcg PO QAM RF: 0 Discharge Orders: Discharge Order (Routine); Ordered 09/01/21 Ordered By: Flip Briscoe Admission Data Admit Date/Time: 08/30/21 16:10 Attending Provider: Flip Briscoe Admit Provider: Flip Briscoe Primary Care Provider: Marla Eric Other Providers: Haile Christy
--- NOTE | 2021-09-01 17:24 | Hospitalist Progress Note ---
Date of Service September 01, 2021 Assessment & Plan (1) Lumbar stenosis with neurogenic claudication: Plan: 61-year-old lady with PMH of lumbar spinal stenosis, HTN, HLD, IBS, hypothyroidism, OCD/mood disorder, urolithiasis who underwent elective back surgery 08/30/2021 for lumbar spinal stenosis is being managed for the following: #. Lumbar stenosis with neurogenic claudication #. S/p lumbar decompression and fusion on 08/30/[address] Briscoe #. Acute blood loss anemia Patient is status post surgery, working with physical therapy, doing well. PT OT, DVT prophylaxis, pain control per primary team. Hemoglobin dropped to 11.5 on 08/31, acute blood loss anemia secondary to surgery. Monitor hemoglobin daily and as needed. Patient without any symptoms. Incentive spirometer. #. Other chronic medical conditions: HTN, HLD, mood disorder/OCD Continue with/resume home meds as and when appropriate. #. DVT prophylaxis: Per primary team #. Full code. #. Dispo: per primary team. Admission and Anticipated Discharge Date Admission Date: August 30, 2021 Subjective Patient seen and examined at bedside as a follow-up of lumbar spinal stenosis status post lumbar surgery by Dr. Briscoe on 08/30/2021. Patient was sitting up in chair, on room air, NAD, no new acute events overnight. Patient reports pain under control, has not moved bowel after surgery, moving gas, eating okay. Patient denies headache/dizziness/chest pain/palpitations/belly pain/other review of symptoms. Physical Exam Physical Exam: GENERAL: Alert and oriented x3. NAD, on RA. HEENT: No pallor, no icterus. Pupils equal, round and reactive to light. Oral mucosa moist. NECK: No JVD, no neck masses. HEART: S1 and S2 heard. Regular rate and rhythm. No murmur, no gallop. RESPIRATORY SYSTEM: Normal AP diameter. No accessory muscle use. No wheezing, no crackles. ABDOMEN: Soft, bowel sounds present, nontender, no distention. CENTRAL NERVOUS SYSTEM: No facial droop. Speech is clear. Obeys simple commands. Moves extremities. EXTREMITIES: No edema, no erythema seen. Low back with clean dressing without soakage, ELE drain removed. Results & Data Results & Data ([facility]) Vital Signs (Past 12 Hours) Vital Signs Temp Pulse Pulse Pulse Resp BP BP 09/01/21 10:41 36.7 C 88 75 89 16 101/54 L 138/76 09/01/21 07:56 36.7 C 75 16 101/54 L Pulse Ox 09/01/21 10:41 92 09/01/21 07:56 92
== END 2021-09-01 14:47 | disposition home or self-care (01) | DRG 454 ==
LOC: ASU 11:09 → INTOOBSV 16:10 → 3W 16:10

== ENCOUNTER 2023-02-04 10:09 | Inpatient (IN) ==
--- NOTE | 2023-01-16 11:17 | PAT Medication Instructions ---
Medication Instructions Date of Service January 16, 2023 Home Medications Medication Instructions Recorded oxycodone 5 mg tablet 5 mg PO Q6H PRN pain, severe #30 08/31/21 tabs tramadol 50 mg tablet 50 mg PO Q6H PRN pain, moderate 08/31/21 #30 tabs ascorbic acid (vitamin C) 1,000 mg tablet 1 g PO QAM atenolol 25 mg tablet 25 mg PO HS atorvastatin 10 mg tablet 10 mg PO HS cholecalciferol (vitamin D3) 25 mcg (1,000 unit) chewable tablet 25 mcg PO QAM duloxetine 60 mg capsule,delayed release 120 mg PO QAM fluvoxamine 100 mg tablet 300 mg PO HS meloxicam 15 mg tablet 15 mg PO QAM multivitamin 1 tab PO QAM quetiapine 100 mg tablet (Seroquel) 150 mg PO HS sumatriptan succinate 100 mg tablet 100 mg PO UD PRN triamterene 37.5 mg-hydrochlorothiazide 25 mg tablet 1 tab PO QAM vitamin B complex 1 tab PO QAM oxycodone 5 mg tablet 5 mg PO Q6H PRN tramadol 50 mg tablet 50 mg PO Q6H PRN linaclotide 145 mcg capsule (Linzess) 145 mcg PO QAM omeprazole magnesium 20 mg tablet,delayed release (Prilosec OTC) 20 mg PO DAILY PRN semaglutide 2 mg/dose (8 mg/3 mL) subcutaneous pen injector (Ozempic) 2 mg subcut WK STOP 7 days before surgery semaglutide 2 mg/dose (8 mg/3 mL) subcutaneous pen injector (Ozempic) 2 mg subcut WK Check with prescriber quetiapine 100 mg tablet (Seroquel) 150 mg PO HS Continue as directed sumatriptan succinate 100 mg tablet 100 mg PO UD PRN(if needed) omeprazole magnesium 20 mg tablet,delayed release (Prilosec OTC) 20 mg PO DAILY PRN(if needed) ASK your surgeon for instructions meloxicam 15 mg tablet 15 mg PO QAM DO NOT take the morning of surgery ascorbic acid (vitamin C) 1,000 mg tablet 1 g PO QAM cholecalciferol (vitamin D3) 25 mcg (1,000 unit) chewable tablet 25 mcg PO QAM multivitamin 1 tab PO QAM triamterene 37.5 mg-hydrochlorothiazide 25 mg tablet 1 tab PO QAM vitamin B complex 1 tab PO QAM linaclotide 145 mcg capsule (Linzess) 145 mcg PO QAM Take morning of surgery With a small sip of water, OTHERWISE NOTHING TO EAT OR DRINK AFTER MIDNIGHT: duloxetine 60 mg capsule,delayed release 120 mg PO QAM oxycodone 5 mg tablet 5 mg PO Q6H PRN(if needed) tramadol 50 mg tablet 50 mg PO Q6H PRN(if needed) Take evening before surgery atenolol 25 mg tablet 25 mg PO HS atorvastatin 10 mg tablet 10 mg PO HS fluvoxamine 100 mg tablet 300 mg PO HS oxycodone 5 mg tablet 5 mg PO Q6H PRN(if needed) tramadol 50 mg tablet 50 mg PO Q6H PRN(if needed) Other Notes If you have any questions please call us at [phone] or [phone] or [phone] or [phone]
--- NOTE | 2023-01-21 13:24 | Anesthesiology Consultation ---
Date of Service January 21, 2023 Assessment & Plan (1) Encounter for pre-operative examination: - Infectious disease screening: Per assessment on 01/21/23: No known infectious disease contacts or current infectious disease symptoms. No noted Covid positive test result in past 90 days. - S/P L3-4 decompression/fusion, hardware removal (08/30/21): Grade view 1, Glidescope#3, ETT 7.0 at [facility] - Semaglutide/Ozempic instructions: Patient takes on . Patient informed at PAT visit to stop 7 days prior to surgery- voiced understanding. DOS 02/04/23. Advised last dose 01/24/23. Patient advised to check with prescriber regarding instructions for restarting after surgery. Chart Review Chart Review: Acceptable Risk for Surgery and Patient seen in Pre Admission Testing Teaching & Discussion Pre-Anesthesia Teaching/Discussion Notes: Instructed NPO after midnight before surgery,except medications with 15 cc of water. Medication instructions provided according to the PAT guidelines. History Surgery Operation Date: 02/04/23 11:45 Proposed Procedures p L1-L3 Decompression, T12-L4 Fusion, L3 Hardware Removal, Spinal Cord Monitoring - Flip Briscoe DO Height/Weight Height: 5 ft 6 in Weight: 110.9 kg Allergies Allergy/AdvReac Type Severity Reaction Status Date / Time Iodinated Contrast Media Allergy Intermediate Hives Verified 01/18/23 12:19 adhesive Allergy Mild Rash Verified 01/18/23 12:19 pollen extracts Allergy Unknown Pollen, Verified 01/18/23 12:19 tree, dog/cat dander- cough, sneezing sulindac Allergy Unknown Throat Verified 01/18/23 12:19 swelling cortisone AdvReac Unknown Rash/flushing Verified 01/18/23 12:19 (face/chest) Medications Home Medications Medication Instructions Recorded Confirmed Last Taken ascorbic acid (vitamin C) 1,000 mg 1 g PO QAM 06/23/21 01/14/23 08/29/21 10:00 tablet atenolol 25 mg tablet 25 mg PO HS 06/23/21 01/14/23 08/29/21 22:00 atorvastatin 10 mg tablet 10 mg PO HS 06/23/21 01/14/23 08/29/21 22:00 cholecalciferol (vitamin D3) 25 25 mcg PO QAM 03/01/14/23 08/29/21 10:00 mcg (1,000 unit) chewable tablet duloxetine 60 mg capsule,delayed 120 mg PO QAM 06/23/21 01/14/23 08/30/21 10:00 release fluvoxamine 100 mg tablet 300 mg PO HS 06/23/21 01/14/23 08/29/21 22:00 meloxicam 15 mg tablet 15 mg PO QAM 06/23/21 01/14/23 08/28/21 multivitamin 1 tab PO QAM 06/23/21 01/14/23 08/29/21 10:00 quetiapine 100 mg tablet (Seroquel) 150 mg PO HS 06/23/21 01/14/23 08/29/21 22:00 sumatriptan succinate 100 mg tablet 100 mg PO UD PRN Migraine Headache 06/23/21 01/14/23 08/29/21 22:00 triamterene 37.5 1 tab PO QAM 06/23/21 01/14/23 08/29/21 10:00 mg-hydrochlorothiazide 25 mg tablet vitamin B complex 1 tab PO QAM 06/23/21 01/14/23 08/29/21 10:00 oxycodone 5 mg tablet 5 mg PO Q6H PRN pain, severe #30 08/31/21 01/14/23 Unknown tabs tramadol 50 mg tablet 50 mg PO Q6H PRN pain, moderate 08/31/21 01/14/23 Unknown #30 tabs linaclotide 145 mcg capsule 145 mcg PO QAM 01/14/23 01/14/23 Unknown (Linzess) omeprazole magnesium 20 mg 20 mg PO DAILY PRN Acid Reflux 01/14/23 01/14/23 Unknown tablet,delayed release (Prilosec OTC) semaglutide 2 mg/dose (8 mg/3 mL) 2 mg subcut WK 01/14/23 01/14/23 Unknown subcutaneous pen injector (Ozempic) Past Medical History Medical History Anxiety Degenerative disc disease Depression GERD (gastroesophageal reflux disease) Diet controlled + TUMS PRN, "stable" History of blood transfusion ITP- 1984 History of COVID-19 2021 > not hospitalized 2019 > not hospitalized History of ITP R/t , no issues since Hyperlipidemia Hypertension Hypothyroidism Previously on Synthroid (discontinued by PCP) Lumbar stenosis with neurogenic claudication Migraine Obesity Taking Ozempic weekly OCD (obsessive compulsive disorder) Sleep apnea "cannot tolerate" device Exercise / Class Metabolic Activity III < 4 Walking/Shop/Light housework (one FS (no CP, occasional SOB)) Past Family History Family History Grandmother (Paternal) Diabetes Mother Diabetes Past Surgical History Surgical History Fusion of spine L3-4 decompression/fusion, hardware removal (08/30/21): Grade view 1, Glidescope#3, ETT 7.0 at [facility] History of ankle surgery right History of section x2 History of cholecystectomy History of colonoscopy History of esophagogastroduodenoscopy (EGD) History of hysterectomy History of lithotripsy x several History of tooth extraction History of total hip arthroplasty right Slow to wake up after anesthesia on occasion Past Anesthesia History No Family Hx of Anesthesia Complications and Other (slow to wake) History of PONV History of PONV (+ nausea) and Hx of Motion Sickness Social History Smoking Status: Never smoker Do You Dip or Chew Tobacco: No Hx Alcohol Use: Yes Alcohol type: hard liquor alcohol intake frequency: holidays/special occasions only Hx Substance Use: No substance use type: does not use Review of Systems Patient denies chest pain, shortness of breath, fever, chills, cough, wheezing, palpitations. Physical Exam Vital Signs VITALS BP 108/74 P 89 TEMP 98.6 SP02 95%RA RESP 18 PHYSICAL Full cervical extension range of motion. Full TMJ range of motion. TMD 3 finger breaths Mallampati Score 3 Lungs: clear throughout to auscultation Cardiac: regular rate and rhythm, no murmurs noted Spine: normal Carotid arteries: negative bruit Extremities: no LE edema Thick neck Lab Results Anesthesia Preop Results Results Anesthesia Widget: WBC 5.87 K/ul (4.8-10.8) 01/21/23 Hgb 14.4 g/dl (12.0-16.0) 01/21/23 Hct 43.1 % (37.0-47.0) 01/21/23 Plt 225 K/uL (130-400) 01/21/23 Na 138 mmol/L (136-145) 01/21/23 K 4.4 mmol/L (3.5-5.1) 01/21/23 Cl 104 mmol/L (98-107) 01/21/23 CO2 29 mmol/L (21-32) 01/21/23 BUN 22 mg/dl (6-23) 01/21/23 Creat 1.01 mg/dl (0.6-1.2) 01/21/23 Glucose Level 69 mg/dl (70-99(Fasting)) L 01/21/23 PT 10.6 Seconds (9.0-12.0) 01/21/23 PTT 27.8 Seconds (21.0-31.0) 01/21/23 INR 1.0 (0.9-1.1) 01/21/23 Urine Color Yellow 01/21/23 Urine Appearance Clear (Clear) 01/21/23 Urine pH 6.5 (4.5-7.5) 01/21/23 Urine Specific [employer] 1.018 (1.000-1.030) 01/21/23 Urine Protein Negative (Negative) 01/21/23 Urine Glucose (UA) Negative (Negative) 01/21/23 Urine Ketones Negative (Negative) 01/21/23 Urine Blood 1+ (Negative) H 01/21/23 Urine Nitrite Negative (Negative) 01/21/23 Urine Bilirubin Negative (Negative) 01/21/23 Urine Urobilinogen Negative (Negative) 01/21/23 Urine Leukocyte Esterase 1+ (Negative) H 01/21/23 Urine WBC (Auto) 1-5 /hpf (0-5) 01/21/23 Urine RBC (Auto) 0-4 /hpf (0-4) 01/21/23 Urine Hyaline Casts (Auto) 0 /lpf (0-5) 01/21/23 Urine Epithelial Cells (Auto) 10-20 /lpf (0-5) H 01/21/23 Urine Bacteria (Auto) Negative (Negative) 01/21/23 Blood Type O Positive 01/21/23 Antibody Screen NEGATIVE 01/21/23 Testing Electrocardiogram Date: 01/21/23 NSR at 78bpm. Chest X-Ray Date: 01/21/23 Findings: + NAD Echocardiogram Date: 03/29/20 EF 65% Normal LV size and systolic function No cLVH Data inconclusive for analysis of diastolic function No significant valvular abnormalities
[~2023-02-04 10:09] MED LIST changes: -CeleBREX 200 MG CAP PO SCH; +LR 60ML/HR IV SCH; -[UNRECOGNIZED DRUG - REMARK] SCH
[2023-02-04] MEDS ORDERED: fentaNYL citrate PF 100 MCG/2 ML VIAL ONE ×3 (12:04→17:22)
[2023-02-04] MEDS ORDERED: PROPOFOL IV EMULSION 10 MG/ML 20 ML VIAL IV ONE (12:04)
[2023-02-04] MEDS ORDERED: MIDAZOLAM HCL 1 MG/ML 2ML VIAL ONE (12:04)
[2023-02-04] MEDS ORDERED: ROCURONIUM BROMIDE 10 MG/ML 5 ML VIAL IV ONE (12:04)
[2023-02-04] MEDS ORDERED: ONDANSETRON INJ 2 MG/ML 2 ML VIAL ONE (12:04)
[2023-02-04] MEDS ORDERED: DEXAMETHASONE SOD INJ 4 MG/ML VIAL ONE (12:04)
[2023-02-04] MEDS ORDERED: LIDOCAINE 2% 2 ML VIAL/AMP(20MG/ML) INFIL ONE (12:04)
[2023-02-04] MEDS ORDERED: SUGAMMADEX SODIUM 200 MG/2 ML VIAL IV ONE (12:04)
[2023-02-04] MEDS ORDERED: ePHEDrine sulfate 50 MG/ML AMP IV PRN (13:14)
[2023-02-04] MEDS ORDERED: ONDANSETRON INJ 2 MG/ML 2 ML VIAL IV PRN (13:14)
[2023-02-04] MEDS ORDERED: ATROPINE SULFATE 0.1 MG/ML 10ML SYR IV PRN (13:14)
--- NOTE | 2023-02-04 14:31 | History & Physical Bridge Note ---
Date of Service February 04, 2023 History & Physical Bridge Note I have examined the patient, reviewed the History & Physical and in the interval since the performance of the History & Physical I have noted the following changes of clinical significance: no changes noted
--- NOTE | 2023-02-04 14:32 | History & Physical Report ---
Date of Service February 04, 2023 Assessment & Plan (1) Lumbar stenosis with neurogenic claudication: Plan: L2-L3 decompression, T12-L4 fusion, L3 hardware removal History of Present Illness Chief Complaint: Back and leg pain Primary Care Provider: Marla Eric DO This is a 62-year-old female well-known to me the presents with worsening back and leg pain after failing course of nonoperative care she is here for surgical invention Allergies Allergy/AdvReac Type Severity Reaction Status Date / Time Iodinated Contrast Media Allergy Intermediate Hives Verified 02/04/23 11:02 adhesive Allergy Mild Rash Verified 02/04/23 11:02 pollen extracts Allergy Unknown Pollen, Verified 02/04/23 11:02 tree, dog/cat dander- cough, sneezing sulindac Allergy Unknown Throat Verified 02/04/23 11:02 swelling cortisone AdvReac Unknown Rash/flushing Verified 02/04/23 11:02 (face/chest) Home Medications Medication Instructions Recorded Confirmed Type ascorbic acid (vitamin C) 1,000 mg 1 g PO QAM 06/23/21 02/04/23 History tablet atenolol 25 mg tablet 25 mg PO HS 06/23/21 02/04/23 History atorvastatin 10 mg tablet 10 mg PO HS 06/23/21 02/04/23 History cholecalciferol (vitamin D3) 25 25 mcg PO QAM 06/23/21 02/04/23 History mcg (1,000 unit) chewable tablet duloxetine 60 mg capsule,delayed 120 mg PO QAM 06/23/21 02/04/23 History release fluvoxamine 100 mg tablet 300 mg PO HS 06/23/21 02/04/23 History meloxicam 15 mg tablet 15 mg PO QAM 06/23/21 02/04/23 History multivitamin 1 tab PO QAM 06/23/21 02/04/23 History quetiapine 100 mg tablet (Seroquel) 150 mg PO HS 06/23/21 02/04/23 History sumatriptan succinate 100 mg tablet 100 mg PO UD PRN Migraine Headache 06/23/21 02/04/23 History triamterene 37.5 1 tab PO QAM 06/23/21 02/04/23 History mg-hydrochlorothiazide 25 mg tablet vitamin B complex 1 tab PO QAM 06/23/21 02/04/23 History oxycodone 5 mg tablet 5 mg PO Q6H PRN pain, severe #30 08/31/21 02/04/23 Rx tabs tramadol 50 mg tablet 50 mg PO Q6H PRN pain, moderate 08/31/21 02/04/23 Rx #30 tabs linaclotide 145 mcg capsule 145 mcg PO QAM 01/14/23 02/04/23 History (Linzess) omeprazole magnesium 20 mg 20 mg PO DAILY PRN Acid Reflux 01/14/23 02/04/23 History tablet,delayed release (Prilosec OTC) semaglutide 2 mg/dose (8 mg/3 mL) 2 mg subcut WK 01/14/23 02/04/23 History subcutaneous pen injector (Ozempic) Past Med/Surg History Medical History Anxiety Degenerative disc disease Depression GERD (gastroesophageal reflux disease) Diet controlled + TUMS PRN, "stable" History of blood transfusion ITP- 1984 History of COVID-19 2021 > not hospitalized 2019 > not hospitalized History of ITP R/t , no issues since Hyperlipidemia Hypertension Hypothyroidism Previously on Synthroid (discontinued by PCP) Lumbar stenosis with neurogenic claudication Migraine Obesity Taking Ozempic weekly OCD (obsessive compulsive disorder) Sleep apnea "cannot tolerate" device Surgical History Fusion of spine L3-4 decompression/fusion, hardware removal (08/30/21): Grade view 1, Glidescope#3, ETT 7.0 at [facility] History of ankle surgery right History of section x2 History of cholecystectomy History of colonoscopy History of esophagogastroduodenoscopy (EGD) History of hysterectomy History of lithotripsy x several History of tooth extraction History of total hip arthroplasty right Slow to wake up after anesthesia on occasion Family History Grandmother (Paternal) Diabetes Mother Diabetes Social History Smoking Status: Never smoker Second Hand Exposure: No; Do You Dip or Chew Tobacco: No; Tobacco Cessation Education Requested by Patient: No Hx Alcohol Use: Yes Alcohol type: hard liquor Hx Substance Use: No Preferred Language: Chinese Communication Ability: Effective Web Engineer Required: No Beliefs That Will Affect Care: None marital status: Current Living Situation: Spouse How many Children do You have: 0 Other Information That Helps Us Care for You: No Feels Safe at Home: Yes Safety Concerns: Feels Safe At This Time Assistive Devices: Glasses Physical Exam Physical Exam: Patient is alert and oriented Heart regular in rhythm Lungs clear Results & Data Results & Data Vital Signs (Past 12 Hours) Vital Signs Temp Pulse Resp BP Pulse Ox O2 Del Method 02/04/23 10:45 37 C 94 H 18 133/99 96 Room Air
[2023-02-04] MEDS ORDERED: BUPIVACAINE/EPINEPHRINE 0.25% 1:200,000 30 ML VIAL ONE (14:54)
[2023-02-04] MEDS ORDERED: ceFAZolin 330 MG/ML 1 GM VIAL ONE (14:55)
[2023-02-04] MEDS ORDERED: FLOSEAL HEMOSTATIC MATRIX 10ML TOP ONE (15:55)
--- NOTE | 2023-02-04 17:25 | Operative Report ---
Post Operative Report Pre & Post Diagnosis Operation Date: 02/04/23 11:45 Pre-Op Diagnosis: Lumbar Region Spinal Stenosis with Neurogenic Claudication Post-Op Diagnosis: Lumbar Region Spinal Stenosis with Neurogenic Claudication I identified the patient and participated in the time-out.: Yes Procedure Operation Date: 02/04/23 11:45 Actual Procedures #1 removal of posterior instrumentation L3-L4 per #2 exploration of fusion L3- L4. #3 lumbar decompression bilaterally facetectomies and foraminotomies L1-L2 L2-L3. #4 posterior spinal fusion T12-L3. #5 placement posterior segmental instrumentation T12-L4. #6 interbody fusion L2-L3. #7 placement spiral 12 x 26 mm at L2-L3. #8 placement locally harvested morselized autograft and posterior gutters. #9 placement I factor in the interbody space and infuse collagen sponge combined with master graft in the posterior lateral gutters. Surgeon Flip Briscoe, Underwriting Manager Hiwot Decker Estimated Blood Loss 250 Findings See Below Patient is a 5 foot 6 weighing over 108 kg with BMI in excess of 38. Patient's body habitus did contribute to significant technical difficulty requiring deeper retractors longer instruments noted performed Specimens None Indications This is a 62-year-old female who presents above-mentioned diagnosis after failed course of nonoperative care is here for surgical invention. Description of Procedure Patient was met with identified informed consent obtained. Patient was then taken to the operative suite underwent patient placed in a prone position on the [facility] top Ever frame. All bony prominences well-padded eyes inspected to ensure no external pressure placed upon the. This point the lumbar spine was prepped and draped in a sterile fashion. Sharp dissection with assistance of Bovie cautery was performed down to and exposing the lamina and transverse pr ocesses of T12 L1-L2 and instrumentation at L3-L4 bilaterally. Then proceeded with the hardware bilaterally explored the fusion mass noting it to be maturing at L3-L4. Then performed complete laminectomy of L2 and L1 including bilateral male facetectomies and foraminotomies addressing severe spinal stenosis. Pedicle screws were then placed in T12-L1 L2-L3-L4 bilaterally with assistance of fluoroscopy and appropriate size kayden contoured and placed. By way of transforaminal approach on the right complete discectomy of L2-L3 was performed endplates guarded to subcortical mean bone and a 12 x 26 mm Spira cage with I factor tapped in position. Incidental durotomy was noted secondary to thinning of the dura. Subsequently I did place a small piece of DuraGen patch in the area covered with DuraSeal. Transverse processes of T12 L1-L2 and L3 were then burred to subcortical bone. Infuse collagen sponge combined with cement and bone graft Was placed in the posterior gutters. 15 round ELE drain inserted. The incision was then closed with 1 Vicryl to fascia 2-0 Vicryl subcutaneously and 4 Monocryl for final skin closure. Steri-Strips sterile dressings placed. Patient waken taken to PACU in stable condition. Please note spinal cord monitoring was utilized at the procedure no changes noted. Emely Decker was present at the entire procedure and all the patient positioning complex portion of the surgery and possible closure. I attest to the content of the Intraoperative Record and any orders documented therein. Any exceptions are noted below.
--- NOTE | 2023-02-04 17:30 | Fluoroscopy Report ---
INTRAOPERATIVE RADIOGRAPHS CLINICAL HISTORY: Thoracolumbar spinal fusion. Fluoro time: 22 seconds Ka,r: 18.05 mGy FINDINGS: 3 spot fluoroscopic views of the thoracolumbar spine are presented. There is evidence of mu ltilevel laminectomy and posterior fusion. The exact levels cannot be delineated on the provided imag es. This is reportedly T12-L4. Discectomy change is seen at several levels. The orthopedic hardware a ppears intact. IMPRESSION: Intraoperative images from thoracolumbar spinal fusion as above. Electronically signed by: Yonatan Faust M.D. 02/04/2023 5:29 PM
[2023-02-04] MEDS: HYDROmorphone INJ 1 MG/ML SYRINGE IV PRN ×12 (17:57→19:05)
[2023-02-04] MEDS ORDERED: ACETAMINOPHEN 1000 MG/100 ML IV IV ONE (18:46)
[2023-02-04] MEDS ORDERED: ACETAMINOPHEN 1,000 MG/100 ML VIAL IV STA (18:48)
[2023-02-04] MEDS ORDERED: HYDROmorphone INJ 2 MG/ML SYR/VIAL IV PRN (18:48)
[2023-02-04] MEDS ORDERED: LORazepam 2 MG/1 ML VIAL IV STA (18:49)
--- NOTE | 2023-02-04 18:52 | Anesthesiology Progress Note ---
Date of Service February 04, 2023 Anesthesia Post Procedure Vital Signs Vital Signs: Temp Pulse Pulse Pulse Resp BP Pulse Ox 02/04/23 18:25 96 H 21 143/68 H 100 02/04/23 18:17 92 H 02/04/23 18:15 99 H 22 115/80 100 02/04/23 18:05 96 H 15 128/83 100 02/04/23 17:55 96 H 13 154/81 H 100 02/04/23 17:45 95 H 15 132/76 93 02/04/23 17:35 37.1 C 87 12 127/74 92 02/04/23 10:45 37 C 94 H 18 133/99 96 O2 Del Method O2 Flow Rate 02/04/23 18:25 Oxymask 5 02/04/23 18:17 02/04/23 18:15 Oxymask 5 02/04/23 18:05 Oxymask 9 02/04/23 17:55 Oxymask 15 02/04/23 17:45 Oxymask 15 02/04/23 17:35 Oxymask 15 02/04/23 10:45 Room Air Pain Intensity Lower Back: Pain Intensity: 3 Back: Pain Intensity: 9 Transfer of Care Handoff Completed per policy Notes Mental Status: alert / awake / arousable and participated in evaluation Patient Amnestic to Procedure: Yes Nausea / Vomiting: adequately controlled Pain: improving with treatment Airway Patency, RR, SpO2: stable & adequate BP & HR: stable & adequate Hydration State: stable & adequate Anesthetic Complications: no major complications apparent and Pt Satisfied with anesthetic care
[2023-02-04] MEDS ORDERED: LORazepam 2 MG/1 ML VIAL ONE (18:53)
[2023-02-04] MEDS ORDERED: DO NOT ADMINISTER FLU VACCINE PRN (19:50)
[2023-02-04] MEDS ORDERED: DO NOT ADMINISTER PNEUMOCOCCAL VACCINE PRN (19:50)
[2023-02-04] MEDS ORDERED: METOCLOPRAMIDE HCL INJ 5 MG/ML 2 ML VIAL IV PRN (19:50)
[2023-02-04] MEDS ORDERED: hydrOXYzine HCl 25 MG TAB PO PRN (19:50)
[2023-02-04] MEDS ORDERED: FAMOTIDINE 20 MG TAB PO PRN (19:50)
[2023-02-04] MEDS ORDERED: LORazepam 2 MG/1 ML VIAL IV PRN (19:50)
[2023-02-04] MEDS ORDERED: NALOXONE HCL 0.4 MG/1 ML VIAL/CARP IV PRN (19:50)
[2023-02-04] MEDS ORDERED: PANTOprazole 40 MG TAB PO PRN (19:50)
[2023-02-04] MEDS ORDERED: MAGNESIUM HYDROXIDE SUSP 30 ML UDC PO PRN (19:50)
[2023-02-04] MEDS ORDERED: ACETAMINOPHEN 1,000 MG/100 ML VIAL IV PRN (19:50)
[2023-02-04] MEDS ORDERED: ONDANSETRON 4 MG OD TAB PO PRN (19:50)
[2023-02-04] MEDS ORDERED: bisacodyL 10 MG SUPP PR PRN (19:50)
[2023-02-04] MEDS ORDERED: PROMETHAZINE HCL 12.5 MG in SODIUM CHLORIDE 0.9% 50 ML IV PRN (19:50)
[2023-02-04] MEDS ORDERED: SOD PHOSPHATE/SOD BIPHOSPHATE ENEMA 132 ML BTL PR PRN (19:50)
[2023-02-04] MEDS ORDERED: diphenhydrAMINE Capsule 25 MG CAP PO PRN (19:50)
[2023-02-04] MEDS ORDERED: ALUMINUM/MAGNESIUM SUSP 30 ML UDC PO PRN (19:50)
[2023-02-04] MEDS ORDERED: ACETAMINOPHEN 500 MG TAB PO PRN (19:50)
[2023-02-04] MEDS ORDERED: HYDROmorphone INJ 1 MG/ML SYRINGE IV PRN (19:50)
[2023-02-04] MEDS: ATORVASTATIN 10 MG TAB PO SCH (21:27)
[2023-02-04] MEDS: LACTATED RINGER'S 1,000 ML IV SCH (21:27)
[2023-02-04] MEDS: ATENOLOL 25 MG TABLET PO SCH (21:27)
[2023-02-04] MEDS: fluvoxaMINE MALEATE 50 MG TAB PO SCH (21:28)
[2023-02-04] MEDS: QUEtiapine FUMARATE 100 MG TABLET PO SCH (21:28)
[2023-02-04] MEDS: DOCUSATE SODIUM/SENNA 50/8.6MG TAB PO SCH (21:28)
[2023-02-04] MEDS: HYDROmorphone INJ 0.5 MG/0.5 ML SYR IV PRN (22:14)
[2023-02-04] MEDS: ceFAZolin 2000MG 2,000 MG/15 ML SYR IV SCH (23:29)
[2023-02-05] MEDS: HYDROmorphone INJ 0.5 MG/0.5 ML SYR IV PRN ×3 (01:19→21:15)
[2023-02-05] MEDS: LACTATED RINGER'S 1,000 ML IV SCH ×3 (01:25→15:13)
[2023-02-05] MEDS: POLYETHYLENE (MIRALAX) 17 GM PACK PO SCH ×3 (05:59→18:30)
[2023-02-05 08:02] LABS: Basophils # (auto) 0.01 K/uL (0.00-0.20); Basophils % (auto) 0.1 %; Hematocrit (blood only) 34.5 % (37.0-47.0); Hemoglobin 11.7 g/dl (12.0-16.0); Immature Granulocytes # (auto) 0.06 K/uL (0.01-0.20); Immature Granulocytes % (auto) 0.6 %; Lymphocytes # (auto) 0.98 K/uL (1.20-3.40); Lymphocytes % (auto) 10.1 %; Mean Corpuscular Hemoglobin 32.3 pg (25.0-34.0); Mean Corpuscular Hgb Conc 33.9 g/dL (32.0-36.0); Mean Corpuscular Volume 95.3 fL (80.0-100.0); Mean Platelet Volume 9.6 fL (9.4-12.4); Monocytes # (auto) 0.57 K/uL (0.11-0.59); Monocytes % (auto) 5.9 %; Neutrophils # (auto) 8.04 K/uL (1.40-6.50); Neutrophils % (auto) 83.3 %; Platelet Count 218 K/uL (130-400); RDW Coefficient of Variation 12.6 % (11.5-14.5); RDW Standard Deviation 44.1 fL (36.4-46.3); Red Blood Count 3.62 M/uL (4.20-5.40); White Blood Count 9.66 K/ul (4.8-10.8)
[2023-02-05] MEDS: ceFAZolin 2000MG 2,000 MG/15 ML SYR IV SCH (08:06)
[2023-02-05 08:20] LABS: BUN Creatinine Ratio 18.4 (10-20); Calcium 8.4 mg/dl (8.6-10.3); Creatinine Clr Calc Pharmacy 98.3 ml/min; Est GFR (African American) 98.8 ml/min; Est GFR (Non-African American) 85.3 ml/min; Potassium 4.4 mmol/L (3.5-5.1)
[2023-02-05] MEDS ORDERED: NON-FORMULARY MEDICATION (Ascorbic Acid (Vitamin C) 1,000 mg tablet) PO SCH (09:00)
[2023-02-05] MEDS: CHOLECALCIFEROL 1,000 UNITS 25 MCG TAB PO SCH (09:49)
[2023-02-05] MEDS: LINACLOTIDE 145 MCG CAPSULE PO SCH (09:50)
[2023-02-05] MEDS: MULTIVITAMIN TAB PO SCH (09:50)
[2023-02-05] MEDS: DULoxetine HCL 60 MG CAP PO SCH (09:50)
[2023-02-05] MEDS: VITAMIN B COMPLEX TAB PO SCH (09:51)
[2023-02-05] MEDS: TRIAMTERENE/HCTZ 37.5/25MG TAB PO SCH ×2 (09:51→10:26)
[2023-02-05] MEDS: traMADol HCL 50 MG TABLET PO PRN ×2 (09:57→16:28)
[2023-02-05] MEDS: ASCORBIC ACID 500 MG TAB PO SCH (12:29)
[2023-02-05] MEDS: dexAMETHasone 6 MG in SYRINGE 0 ML IV SCH (13:13)
--- NOTE | 2023-02-05 13:17 | Orthopedic Progress Note ---
Date of Service February 05, 2023 Assessment & Plan (1) Lumbar stenosis with neurogenic claudication: Plan: At this time we will maintain bedrest today. We will have her dressing change and drain pulled today as well. I will reassess her tomorrow and consider p ossible bed to chair activity. Admission and Anticipated Discharge Date Admission Date: February 04, 2023 Subjective Back pain controlled. She has no leg pain. Denies any nausea or vomiting. Has a very mild headache beginning this afternoon. Physical Exam Physical Exam: On exam she appears quite comfortable. Is good strength testing. Results & Data Vital Signs (Past 12 Hours) Vital Signs Temp Pulse Pulse Resp BP Pulse Ox O2 Del Method 02/05/23 11:56 36.6 C 76 18 93/52 L 97 Room Air 02/05/23 11:09 36.7 C 71 12 95/56 L 99 Nasal Cannula 02/05/23 09:47 36.6 C 65 16 98/58 L 98 Nasal Cannula 02/05/23 07:58 36.6 C 70 12 95/60 L 99 Nasal Cannula 02/05/23 04:25 110/63 02/05/23 03:28 36.5 C 76 16 95/58 L 99 Nasal Cannula O2 Flow Rate 02/05/23 11:56 02/05/23 11:09 02/05/23 09:47 02/05/23 07:58 2 02/05/23 04:25 02/05/23 03:28 2 Queries Orthopedic Spine Obesity: Yes
--- NOTE | 2023-02-05 13:23 | Hospitalist Consultation ---
Date of Consultation February 05, 2023 Assessment & Plan (1) Lumbar stenosis with neurogenic claudication: Pain / VTE prophylaxis / bowel management per primary orthopedic team (2) Hypertension: Continue atenolol with hold parameters Triamterene / HCTZ placed on held - notably not given this morning per MD orders She is adequately fluid resuscitated at this point and eating and drinking therefore IV fluids stopped (3) Sleep apnea: Intolerant to CPAP (4) Hyperlipidemia: Continue atorvastatin (5) Depression: with anxiety and OCD Continue fluvoxamine and quetiapine (6) GERD (gastroesophageal reflux disease): None current, continue to monitor (7) Obesity: Resume Ozempic as outpatient (8) History of ITP: Plan VTE Prophylaxis - Lovenox 40mg SQ daily Diet - finger foods Disposition - admit med/surg History of Present Illness Reason for Consultation: medical management Attending Physician: Flip Briscoe, DO History of Present Illness Belén Hurt is a 62 year old female POD#1 revision lumbar decompression and fusion for lumbar region spinal stenosis with neurogenic claudication. She has not yet been out of bed due to concern for a leak. Currently eating and drinking with finger food diet. No dizziness or lightheadedness while lying flat in bed. She reports noticing swelling when she does not take her diuretics normally but no history of heart failure. Allergies Allergy/AdvReac Type Severity Reaction Status Date / Time Iodinated Contrast Media Allergy Intermediate Hives Verified 02/04/23 11:02 adhesive Allergy Mild Rash Verified 02/04/23 11:02 pollen extracts Allergy Unknown Pollen, Verified 02/04/23 11:02 tree, dog/cat dander- cough, sneezing sulindac Allergy Unknown Throat Verified 02/04/23 11:02 swelling cortisone AdvReac Unknown Rash/flushing Verified 02/04/23 11:02 (face/chest) Home Medications Medication Instructions Recorded Confirmed Type ascorbic acid (vitamin C) 1,000 mg 1 g PO QAM 06/23/21 02/04/23 History tablet atenolol 25 mg tablet 25 mg PO HS 06/23/21 02/04/23 History atorvastatin 10 mg tablet 10 mg PO HS 06/23/21 02/04/23 History cholecalciferol (vitamin D3) 25 25 mcg PO QAM 06/23/21 02/04/23 History mcg (1,000 unit) chewable tablet duloxetine 60 mg capsule,delayed 120 mg PO QAM 06/23/21 02/04/23 History release fluvoxamine 100 mg tablet 300 mg PO HS 06/23/21 02/04/23 History meloxicam 15 mg tablet 15 mg PO QAM 06/23/21 02/04/23 History multivitamin 1 tab PO QAM 06/23/21 02/04/23 History quetiapine 100 mg tablet (Seroquel) 150 mg PO HS 06/23/21 02/04/23 History sumatriptan succinate 100 mg tablet 100 mg PO UD PRN Migraine Headache 06/23/21 02/04/23 History triamterene 37.5 1 tab PO QAM 06/23/21 02/04/23 History mg-hydrochlorothiazide 25 mg tablet vitamin B complex 1 tab PO QAM 06/23/21 02/04/23 History oxycodone 5 mg tablet 5 mg PO Q6H PRN pain, severe #30 08/31/21 02/04/23 Rx tabs tramadol 50 mg tablet 50 mg PO Q6H PRN pain, moderate 08/31/21 02/04/23 Rx #30 tabs linaclotide 145 mcg capsule 145 mcg PO QAM 01/14/23 02/04/23 History (Linzess) omeprazole magnesium 20 mg 20 mg PO DAILY PRN Acid Reflux 01/14/23 02/04/23 History tablet,delayed release (Prilosec OTC) semaglutide 2 mg/dose (8 mg/3 mL) 2 mg subcut WK 01/14/23 02/04/23 History subcutaneous pen injector (Ozempic) Patient History Medical History (Updated 02/05/23 @ 13:20 by Nasir Murry MD) Obesity Taking Ozempic weekly History of ITP R/t , no issues since Sleep apnea "cannot tolerate" device Depression OCD (obsessive compulsive disorder) History of blood transfusion ITP- 1984 History of COVID-19 2021 > not hospitalized 2019 > not hospitalized Lumbar stenosis with neurogenic claudication Degenerative disc disease GERD (gastroesophageal reflux disease) Diet controlled + TUMS PRN, "stable" Hypothyroidism Previously on Synthroid (discontinued by PCP) Anxiety Migraine Hypertension Hyperlipidemia Surgical History Slow to wake up after anesthesia on occasion History of hysterectomy History of section x2 Fusion of spine L3-4 decompression/fusion, hardware removal (08/30/21): Grade view 1, Glidescope#3, ETT 7.0 at [facility] History of total hip arthroplasty right History of ankle surgery right History of lithotripsy x several History of esophagogastroduodenoscopy (EGD) History of colonoscopy History of cholecystectomy History of tooth extraction Family History Grandmother (Paternal) Diabetes Mother Diabetes Social History Smoking Status: Never smoker Second Hand Exposure: No; Do You Dip or Chew Tobacco: No; Tobacco Cessation Education Requested by Patient: No Hx Alcohol Use: Yes Alcohol type: hard liquor Hx Substance Use: No Preferred Language: Divehi Communication Ability: Effective Production Control Expert Required: No Beliefs That Will Affect Care: None marital status: Current Living Situation: Spouse How many Children do You have: 0 Other Information That Helps Us Care for You: No Feels Safe at Home: Yes Safety Concerns: Feels Safe At This Time Assistive Devices: Cane, Raised Toilet Seat and Walker Review of Systems Review of Systems: All systems reviewed & are unremarkable except as noted in HPI & below Physical Exam Constitutional: WD/WN, vitals as above Respiratory: normal respiratory effort, lungs clear to auscultation Cardiovascular: RRR, no murmur, no edema Gastrointestinal (Abdomen): normal bowel sounds, soft, nontender, no hepatosplenomegaly Skin: no rashes, warm and dry Neurologic: moves all extremities (ankle and toe movement only checked in LE) and awake; not confused Psychiatric: A+Ox3, euthymic affect Results & Data Results & Data Vital Signs (Past 12 Hours) Vital Signs Temp Pulse Pulse Resp BP Pulse Ox O2 Del Method 02/05/23 11:56 36.6 C 76 18 93/52 L 97 Room Air 02/05/23 11:09 36.7 C 71 12 95/56 L 99 Nasal Cannula 02/05/23 09:47 36.6 C 65 16 98/58 L 98 Nasal Cannula 02/05/23 07:58 36.6 C 70 12 95/60 L 99 Nasal Cannula 02/05/23 04:25 110/63 02/05/23 03:28 36.5 C 76 16 95/58 L 99 Nasal Cannula O2 Flow Rate 02/05/23 11:56 02/05/23 11:09 02/05/23 09:47 02/05/23 07:58 2 02/05/23 04:25 02/05/23 03:28 2 Laboratory Results Abnormal lab results 02/04/23 02/05/23 Range/Units 10:38 07:33 RBC 3.62 L (4.20-5.40) M/uL Hgb 11.7 L (12.0-16.0) g/dl Hct 34.5 L (37.0-47.0) % Neut # (Auto) 8.04 H (1.40-6.50) K/uL Lymph # (Auto) 0.98 L (1.20-3.40) K/uL Glucose 137 H (70-99(Fasting)) mg/dl Calcium 8.4 L (8.6-10.3) mg/dl Crossmatch See Detail PG Care Time/CCT Total # of Minutes Spent Total Time Spent with Patient: Total time spent is greater than 50% in coordination of care (as documented) at patient's floor/unit and/or counseling patient: Coding Level of Care Code 06677 IN/OBS CONSULT LVL 3,45M Diagnoses Lumbar stenosis with neurogenic claudication M48.062 Hypertension I10 Sleep apnea G47.30 Hyperlipidemia E78.5 Depression F32.A GERD (gastroesophageal reflux disease) K21.9 Obesity E66.9 History of ITP Z86.2
--- NOTE | 2023-02-05 13:38 | Electrocardiogram Report ---
Test Reason : Blood Pressure : / mmHG Vent. Rate : 092 BPM Atrial Rate : 092 BPM P-R Int : 180 ms QRS Dur : 090 ms QT Int : 408 ms P-R-T Axes : 035 029 062 degrees QTc Int : 504 ms Normal sinus rhythm Normal ECG When compared with ECG of 21-JAN-2023 13:55, No significant change was found Confirmed by Lance Escobar ([id number]) on 02/05/2023 1:37:37 PM Referred By: Flip Briscoe Confirmed By:Lance Escobar
[2023-02-05] MEDS: SUMAtriptan succinate 100 MG TAB PO PRN (14:03)
[2023-02-05] MEDS: ATORVASTATIN 10 MG TAB PO SCH (21:22)
[2023-02-05] MEDS: ATENOLOL 25 MG TABLET PO SCH (21:22)
[2023-02-05] MEDS: DOCUSATE SODIUM/SENNA 50/8.6MG TAB PO SCH (21:22)
[2023-02-05] MEDS: fluvoxaMINE MALEATE 50 MG TAB PO SCH (21:23)
[2023-02-05] MEDS: QUEtiapine FUMARATE 100 MG TABLET PO SCH (21:23)
[2023-02-05] MEDS: ALLERGY Noted to ORDERED Medication SCH ×3 (23:48→23:50)
[2023-02-05] MEDS: LORazepam 0.5 MG TAB PO PRN (23:59)
[2023-02-05] MEDS: oxyCODONE HCL IR 5 MG TAB (IMMEDIATE RELEASE) PO PRN (23:59)
[2023-02-06] MEDS: ALLERGY Noted to ORDERED Medication SCH ×6 (00:42→23:09)
[2023-02-06] MEDS: oxyCODONE HCL IR 5 MG TAB (IMMEDIATE RELEASE) PO PRN ×3 (08:01→18:02)
[2023-02-06] MEDS: POLYETHYLENE (MIRALAX) 17 GM PACK PO SCH ×5 (08:03→23:09)
[2023-02-06] MEDS: ASCORBIC ACID 500 MG TAB PO SCH (08:06)
[2023-02-06] MEDS: CHOLECALCIFEROL 1,000 UNITS 25 MCG TAB PO SCH (08:06)
[2023-02-06] MEDS: LINACLOTIDE 145 MCG CAPSULE PO SCH (08:07)
[2023-02-06] MEDS: DULoxetine HCL 60 MG CAP PO SCH (08:07)
[2023-02-06] MEDS: MULTIVITAMIN TAB PO SCH (08:08)
[2023-02-06] MEDS: VITAMIN B COMPLEX TAB PO SCH (08:08)
[2023-02-06] MEDS: dexAMETHasone 6 MG in SYRINGE 0 ML IV SCH (08:47)
--- NOTE | 2023-02-06 10:02 | Orthopedic Progress Note ---
Date of Service February 06, 2023 Assessment & Plan (1) Lumbar stenosis with neurogenic claudication: Plan: At this time we will initiate bed to chair transfers. If she tolerates activity today we will consider formalized physical therapy tomorrow. Admission and Anticipated Discharge Date Admission Date: February 04, 2023 Subjective Back pain is controlled. She states her leg pain is improved. She denies any headache nausea or vomiting. Physical Exam Physical Exam: On exam she appears comfortable. Is constricted testing lower extremities. Results & Data Vital Signs (Past 12 Hours) Vital Signs Temp Pulse Resp BP Pulse Ox O2 Del Method 02/06/23 07:20 36.4 C L 86 16 92/52 L 95 Room Air 02/06/23 00:19 86 20 108/62 96 Room Air Queries Orthopedic Spine Obesity: Yes
[2023-02-06 10:32] LABS: Basophils # (auto) 0.02 K/uL (0.00-0.20); Basophils % (auto) 0.2 %; Eosinophils # (auto) 0.02 K/uL (0.00-0.50); Eosinophils % (auto) 0.2 %; Hematocrit (blood only) 35.8 % (37.0-47.0); Hemoglobin 11.7 g/dl (12.0-16.0); Immature Granulocytes # (auto) 0.09 K/uL (0.01-0.20); Lymphocytes # (auto) 2.17 K/uL (1.20-3.40); Lymphocytes % (auto) 23.3 %; Mean Corpuscular Hemoglobin 32.3 pg (25.0-34.0); Mean Corpuscular Hgb Conc 32.7 g/dL (32.0-36.0); Mean Corpuscular Volume 98.9 fL (80.0-100.0); Mean Platelet Volume 9.6 fL (9.4-12.4); Monocytes # (auto) 0.78 K/uL (0.11-0.59); Monocytes % (auto) 8.4 %; Neutrophils # (auto) 6.22 K/uL (1.40-6.50); Neutrophils % (auto) 66.9 %; Platelet Count 195 K/uL (130-400); RDW Coefficient of Variation 12.8 % (11.5-14.5); RDW Standard Deviation 46.1 fL (36.4-46.3); Red Blood Count 3.62 M/uL (4.20-5.40)
[2023-02-06 10:45] LABS: BUN Creatinine Ratio 18.1 (10-20); Calcium 8.2 mg/dl (8.6-10.3); Creatinine Clr Calc Pharmacy 90.1 ml/min; Est GFR (African American) 88.8 ml/min; Est GFR (Non-African American) 76.6 ml/min; Potassium 3.7 mmol/L (3.5-5.1)
--- NOTE | 2023-02-06 12:21 | Hospitalist Progress Note ---
Date of Service February 06, 2023 Assessment & Plan (1) Lumbar stenosis with neurogenic claudication: Plan: Pain control / VTE prophylaxis / bowel management per primary orthopedic team No further concern for leak as headache resolved. Has a h/o chronic headaches Allowed to get OOB to chair as per Ortho (2) Hypertension: Plan: Continue atenolol with hold parameters Continue to hold Triamterene / HCTZ due to low normal BPs Hgb stable from yesterday but had 2 gram blood loss from surgery (3) Sleep apnea: Plan: Intolerant to CPAP (4) Hyperlipidemia: Plan: Continue atorvastatin (5) Depression: Plan: with anxiety and OCD Continue fluvoxamine, duloxetine, and quetiapine (6) Obesity: Plan: Resume Ozempic as outpatient (7) History of ITP: Plan: platelets normal here, was in (8) Migraine: Plan: no further VAN here triptan prn Plan VTE Prophylaxis -SCDs Disposition - continued stay med/surg Admission and Anticipated Discharge Date Admission Date: February 04, 2023 Subjective no further headache, no CP, SOB having back pain no nausea, is eating. Last BM 2 days ago, passing flatus Physical Exam Constitutional: WD/WN, vitals as above Respiratory: normal respiratory effort, lungs clear to auscultation Cardiovascular: RRR, no murmur, no edema Gastrointestinal (Abdomen): normal bowel sounds, soft, nontender, no hepatosplenomegaly (mild distension) Results & Data Results & Data Vital Signs (Past 12 Hours) Vital Signs Temp Pulse Resp BP Pulse Ox O2 Del Method 02/06/23 07:20 36.4 C L 86 16 92/52 L 95 Room Air 02/06/23 00:19 86 20 108/62 96 Room Air Laboratory Results CBC, BMP reviewed PG Care Time/CCT Total # of Minutes Spent Total Time Spent with Patient: Total time spent is greater than 50% in coordination of care (as documented) at patient's floor/unit and/or counseling patient: Coding Level of Care Code 98964 SUB INP/OBS CARE 2/35MIN Diagnoses Lumbar stenosis with neurogenic claudication M48.062 Hypertension I10 Sleep apnea G47.30 Hyperlipidemia E78.5 Depression F32.A Obesity E66.9 History of ITP Z86.2 Migraine G43.909
[2023-02-06] MEDS ORDERED: LORazepam 0.5 MG in SYRINGE 0.25 ML IV PRN (14:09)
[2023-02-06] MEDS: traMADol HCL 50 MG TABLET PO PRN (15:43)
[2023-02-06] MEDS: SUMAtriptan succinate 100 MG TAB PO PRN (20:30)
[2023-02-06] MEDS: fluvoxaMINE MALEATE 50 MG TAB PO SCH (21:53)
[2023-02-06] MEDS: QUEtiapine FUMARATE 100 MG TABLET PO SCH (21:53)
[2023-02-06] MEDS: ATORVASTATIN 10 MG TAB PO SCH (21:53)
[2023-02-06] MEDS: ATENOLOL 25 MG TABLET PO SCH (21:53)
[2023-02-06] MEDS: DOCUSATE SODIUM/SENNA 50/8.6MG TAB PO SCH (21:54)
[2023-02-06] MEDS: LORazepam 0.5 MG TAB PO PRN (21:54)
[2023-02-07] MEDS: POLYETHYLENE (MIRALAX) 17 GM PACK PO SCH ×3 (06:09→17:17)
[2023-02-07] MEDS: DULoxetine HCL 60 MG CAP PO SCH (08:42)
[2023-02-07] MEDS: CHOLECALCIFEROL 1,000 UNITS 25 MCG TAB PO SCH (08:42)
[2023-02-07] MEDS: MULTIVITAMIN TAB PO SCH (08:44)
[2023-02-07] MEDS: LINACLOTIDE 145 MCG CAPSULE PO SCH ×2 (08:45→10:34)
[2023-02-07] MEDS: VITAMIN B COMPLEX TAB PO SCH (08:46)
[2023-02-07] MEDS: ASCORBIC ACID 500 MG TAB PO SCH (08:46)
--- NOTE | 2023-02-07 10:30 | Orthopedic Progress Note ---
Date of Service February 07, 2023 Assessment & Plan (1) Lumbar stenosis with neurogenic claudication: Plan: At this time initiate physical therapy. If she tolerates therapy well today. Anticipate possible discharge home tomorrow. Admission and Anticipated Discharge Date Admission Date: February 04, 2023 Subjective Patient's back pain is controlled. She denies any nausea vomiting headache. She been tolerating ambulation to the bathroom without difficulty. Physical Exam Physical Exam: Patient is in the chair at the bedside. Is constricted testing. Results & Data Vital Signs (Past 12 Hours) Vital Signs Temp Pulse Resp BP Pulse Ox O2 Del Method 02/07/23 08:30 Room Air 02/07/23 07:36 37.1 C 95 H 16 102/67 94 Room Air Queries Orthopedic Spine Obesity: Yes
[2023-02-07] MEDS: dexAMETHasone 6 MG in SYRINGE 0 ML IV SCH ×2 (10:37→10:39)
--- NOTE | 2023-02-07 11:58 | Hospitalist Progress Note ---
Date of Service February 07, 2023 Assessment & Plan (1) Lumbar stenosis with neurogenic claudication: Plan: Pain control / VTE prophylaxis / bowel management per primary orthopedic team No further concern for leak as headache resolved. Has a h/o chronic headaches Allowed to get OOB to chair as per Ortho and work with PT/OT today Will dc higher dose of dilaudid 1mg and dc IV ativan, dc tramadol due to excessive drowsiness (2) Hypertension: Plan: Continue atenolol with hold parameters Continue to hold Triamterene / HCTZ due to low normal BPs but can resume on dscharge Hgb slight drop 2 grams on POD#1 but stable on POD#2 (3) Sleep apnea: Plan: Intolerant to CPAP (4) Hyperlipidemia: Plan: Continue atorvastatin (5) Depression: Plan: with anxiety and OCD Continue fluvoxamine, duloxetine, and quetiapine (6) Obesity: Plan: Resume Ozempic as outpatient (7) History of ITP: Plan: platelets normal here, was in (8) Migraine: Plan: no further VAN here triptan prn Plan VTE Prophylaxis -SCDs Disposition - continued stay med/surg but likely dc to home tomorrow as per ortho Hospitalist Service will sign off at this time. Please feel free to reconsult or call with questions or concerns Admission and Anticipated Discharge Date Admission Date: February 04, 2023 Subjective Was very drowsy this AM after receiving oxycodone 10, dilaudid 1mg and ativan overnight. She is now OOB to chair and says back pain is much better, headache is resolved. She is eating. No other questions or concerns Physical Exam Constitutional: WD/WN, vitals as above Respiratory: normal respiratory effort, lungs clear to auscultation Cardiovascular: RRR, no murmur, no edema Gastrointestinal (Abdomen): normal bowel sounds, soft, nontender, no hepatosplenomegaly (mild distension) Neurologic: moves all extremities and awake; not confused Results & Data Results & Data Vital Signs (Past 12 Hours) Vital Signs Temp Pulse Resp BP Pulse Ox O2 Del Method 02/07/23 08:30 Room Air 02/07/23 07:36 37.1 C 95 H 16 102/67 94 Room Air Laboratory Results no labs PG Care Time/CCT Total # of Minutes Spent Total Time Spent with Patient: Total time spent is greater than 50% in coordination of care (as documented) at patient's floor/unit and/or counseling patient: Coding Level of Care Code 09067 SUB INP/OBS CARE Diagnoses Lumbar stenosis with neurogenic claudication M48.062 Hypertension I10 Sleep apnea G47.30 Hyperlipidemia E78.5 Depression F32.A Obesity E66.9 History of ITP Z86.2 Migraine G43.909
[2023-02-07] MEDS: traMADol HCL 50 MG TABLET PO PRN ×2 (12:47→18:12)
[2023-02-07] MEDS: SUMAtriptan succinate 100 MG TAB PO PRN (14:04)
[2023-02-07] MEDS: HYDROmorphone INJ 0.5 MG/0.5 ML SYR IV PRN ×3 (14:09→21:59)
[2023-02-07] MEDS: ALLERGY Noted to ORDERED Medication SCH (14:23)
[2023-02-07] MEDS: QUEtiapine FUMARATE 100 MG TABLET PO SCH (21:08)
[2023-02-07] MEDS: ATENOLOL 25 MG TABLET PO SCH (21:08)
[2023-02-07] MEDS: DOCUSATE SODIUM/SENNA 50/8.6MG TAB PO SCH (21:08)
[2023-02-07] MEDS: fluvoxaMINE MALEATE 50 MG TAB PO SCH (21:09)
[2023-02-07] MEDS: ATORVASTATIN 10 MG TAB PO SCH (21:10)
[2023-02-07] MEDS: ONDANSETRON INJ 2 MG/ML 2 ML VIAL IV PRN (21:59)
[2023-02-08] MEDS: POLYETHYLENE (MIRALAX) 17 GM PACK PO SCH ×3 (00:44→13:15)
[2023-02-08] MEDS: ONDANSETRON INJ 2 MG/ML 2 ML VIAL IV PRN (04:08)
[2023-02-08] MEDS: HYDROmorphone INJ 0.5 MG/0.5 ML SYR IV PRN ×2 (04:08→08:58)
[2023-02-08] MEDS: SUMAtriptan succinate 100 MG TAB PO PRN (07:43)
[2023-02-08] MEDS: ASCORBIC ACID 500 MG TAB PO SCH (08:58)
[2023-02-08] MEDS: DULoxetine HCL 60 MG CAP PO SCH (08:59)
[2023-02-08] MEDS: VITAMIN B COMPLEX TAB PO SCH (08:59)
[2023-02-08] MEDS: MULTIVITAMIN TAB PO SCH (08:59)
[2023-02-08] MEDS: LINACLOTIDE 145 MCG CAPSULE PO SCH (08:59)
[2023-02-08] MEDS: CHOLECALCIFEROL 1,000 UNITS 25 MCG TAB PO SCH (09:00)
[2023-02-08] MEDS: ALLERGY Noted to ORDERED Medication SCH (09:13)
[2023-02-08] MEDS ORDERED: HYDROmorphone HCL 2 MG TAB PO PRN (10:39)
--- NOTE | 2023-02-08 10:43 | Discharge Summary ---
Date of Service February 08, 2023 Admission HPI Per Admitting Provider This is a 62-year-old female well-known to me the presents with worsening back and leg pain after failing course of nonoperative care she is here for surgical invention Principal Diagnosis Lumbar spinal stenosis with neurogenic claudication Discharge Data Allergies Allergy/AdvReac Type Severity Reaction Status Date / Time Iodinated Contrast Media Allergy Intermediate Hives Verified 02/04/23 11:02 adhesive Allergy Mild Rash Verified 02/04/23 11:02 pollen extracts Allergy Unknown Pollen, Verified 02/04/23 11:02 tree, dog/cat dander- cough, sneezing sulindac Allergy Unknown Throat Verified 02/04/23 11:02 swelling cortisone AdvReac Unknown Rash/flushing Verified 02/04/23 11:02 (face/chest) Consultations 02/04/23 19:50 Consult Hospitalist Routine Procedures Performed Operation Date: 02/04/23 11:45 Actual Procedures p L1-L3 Decompression, T12-L4 Fusion, Spinal Cord Monitoring(Not Applicable) - Flip Briscoe DO s L3 Hardware Removal, (Not Applicable) - Flip Briscoe DO Ordered Studies 02/04/23 [place] lumbar spine 2-3V Routine Hospital Course (1) Lumbar stenosis with neurogenic claudication: Patient about lab decompression fusion tolerated as well as taken to the orthopedic floor postoperative. She progressed appropriately postoperatively. Pain well controlled. Extra strength testing. Simply discharged home. Discharge orders instructions from the chart for further review. Total Time Total Time Spent Total Time Spent (In Minutes): 20 minutes Discharge Plan Discharge Items Patient Disposition: Home - Self-Care Reason For Visit: POSTOP Discharge Diagnosis: Lumbar spinal stenosis with neurogenic claudication Activity: As commented below Non-emergency contact: Primary Care Provider Call non-emergency contact if: you have any medication questions Follow-up/Referrals: Marla Eric DO [Primary Care Provider] - Diet: Regular Addtl Attending Provider Instructions: ACTIVITY RECOMMENDATIONS: SELF CARE INSTRUCTIONS AFTER THORACIC/LUMBAR FUSIONS 1. You may walk to your tolerance. It is good exercise for your legs and back. Expect some back and intermittent leg aches and pains. 2. You may perform "counter-top" level activities (make a sandwich, jessica with a project, etc.). 3. No bending or lifting of more than 10 pounds or back twisting of any nature (roll like a log when turning in bed). 4. You may ride in a car for 20-30 minutes at a time. No driving until after your first visit with your doctor. 5. Frequent changes of position and restricting sitting to 30 minutes at a time will help limit the amount of back spasms and stiffness you may experience. 6. You may discontinue the use of ambulatory aids (cane, crutches, etc.) once your strength and confidence allow. 7. You may transcription coordinator the shower and let water strike your incision when you arrive home at least once daily. Do not take a tub bath, sit in a hot tub or go into a swimming pool until after your first recheck in the office. SPECIAL CARE INSTRUCTIONS: VERY IMPORTANT TO READ AND REVIEW A. Your surgical incision has been closed with a cosmetic suture under the skin that will dissolve in about 6 weeks. In 14 days, you can use a pair of clean scissors and cut the suture that is left outside of the skin at the ends of your incision. 1. The small skin tapes can be removed 7 days after surgery if they have not fallen off by that point. 2. You may keep the wound open to air as much as possible to promote healing after post-op day number 5 unless told otherwise by your doctor. 3. If you think the wound looks like it is becoming infected (redness or worsening drainage) and/or you are experiencing fever, chill or worsening back pain and muscle spasms, contact the office so that we may evaluate you as soon as possible. B. Complications are uncommon, but please contact us if you have any signs or symptoms of: 1. wound infection (fever higher than 102.5 degrees F, redness, separation of wound, drainage, or increasing pain from the incision) 2. blood clots in legs (pain, swelling, redness and warmth in legs) 3. urinary tract infection (fever higher than 102.5 degrees F, burning upon urination or increased frequency of urination) 4. nerve problems (inability to walk on your toes or heels, numbness, loss of bowel or bladder control) 5. any other symptoms that concern you C. Please call the office at if you have any concerns or questions about your operation or recovery. D. No smoking! Smoking drastically decreases the chance of a solid fusion. E. Do not take any anti-inflammatory medications (Indocin, Advil, Motrin, Aspirin, Naprosyn, etc.) as these may inhibit the chance of a solid fusion. Tylenol is okay to take for pain. MANAGING PAIN AFTER SPINAL SURGERY 1. Narcotic medication is intended for short-term use and will be provided for surgical pain. Surgical pain usually lasts for a period of 4-6 weeks. Narcotic medication includes Percocet, Vicodin, Darvocet, Tylenol #3 or Lortab. 2. Longer-term pain is more appropriately treated with non-narcotic medication such as Tylenol ES. 3. Muscle spasm is not appropriately treated with narcotics. Muscle relaxers such as Soma, Flexeril or Skelaxin can be used along with Tylenol ES. 4. Remember that we all live with some "aches and pains". This is not unusual or uncommon after an injury or as we get older. a. Back pain is expected and may include muscle spasms for 4 to 6 weeks after surgery. The pain should gradually improve. If the pain worsens for no apparent reason, please contact the office. b. Intermittent leg pain may also be experienced and should not be concerned about unless it worsens for no apparent reason. If so, please contact the office. 5. We will provide appropriate medication within the normal guidelines of their prescribed use. We will also be very cautious and aware of potential abuse and extended duration of patients' medication needs. a. Pain medications are for your comfort and to assist with sleep and rest so that the tissue can heal. They are not provided in order to return to normal activity and should not be used through the day. To do so or worsening pain at night can result from ongoing tissue damage and development of tolerance to the prescribed medicine. 6. Please allow 2-3 days to process refills. Prescriptions will not be mailed but must be picked up at the office. FOLLOW UP VISIT: Keep your scheduled follow-up appointment. Any questions, please call the office at . Pending Studies at Discharge: No Stand-Alone Forms: My Protochips, Smoking Cessation Medications and DC Order Prescriptions: New tramadol 50 mg tablet 50 mg PO Q6H PRN (Reason: pain, moderate) Qty: 30 0RF hydromorphone [Dilaudid] 2 mg tablet 2 mg PO Q6H Qty: 30 0RF Continued atenolol 25 mg tablet 25 mg PO HS atorvastatin 10 mg tablet 10 mg PO HS duloxetine 60 mg capsule,delayed release(DR/EC) 120 mg PO QAM fluvoxamine 100 mg tablet 300 mg PO HS meloxicam 15 mg tablet 15 mg PO QAM multivitamin Tablet 1 tab PO QAM quetiapine [Seroquel] 100 mg tablet 150 mg PO HS sumatriptan succinate 100 mg tablet 100 mg PO UD PRN (Reason: Migraine Headache) Rx Instructions: do not exceed 2 doses per 24 hrs triamterene-hydrochlorothiazid 37.5-25 mg tablet 1 tab PO QAM vitamin B complex Tablet 1 tab PO QAM ascorbic acid (vitamin C) 1,000 mg tablet 1 g PO QAM cholecalciferol (vitamin D3) 25 mcg (1,000 unit) tablet,chewable 25 mcg PO QAM tramadol 50 mg tablet 50 mg PO Q6H PRN (Reason: pain, moderate) Qty: 30 0RF Ozempic 2 mg/dose (8 mg/3 mL) Pen Injector 2 mg SUBCUT WK Patient Comments: takes on > last dose 01/10/23, plans for last dose to be 01/24/23 Linzess 145 mcg Capsule 145 mcg PO QAM omeprazole magnesium [Prilosec OTC] 20 mg Tablet,Delayed Release (Dr/Ec) 20 mg PO DAILY PRN (Reason: Acid Reflux) Discontinued oxycodone 5 mg tablet 5 mg PO Q6H PRN (Reason: pain, severe) Qty: 30 0RF Discharge Orders: Discharge Order (Routine); Ordered 02/08/23 Ordered By: Flpi Briscoe Admission Data Admit Date/Time: 02/04/23 17:28 Attending Provider: Flip Briscoe Admit Provider: Flip Briscoe Primary Care Provider: Marla Eric Other Providers: Jeannette Glynn
--- OUTSIDE RECORDS SUMMARY | 2023-02-09 00:35 | External Medical Summary | Summary of Care ---
Author Name Unknown Organization [facility] Address [address] [place] [address] Phone [phone] Care Team Providers Care Size Marker Name Role Phone Marla Eric Irina Bree DO Primary Car e Provider Encounter Details Date Type Department Care Team Description 01/07/2023 Telephone Gastroenterology, [place] [address] [place] [address] Madelin Gloria PA-C [address] [place] [address] Allergies Active Allergy Reactions Severity Noted Date Comments Cortisone 09/22/2014 Flushed Iodinated Contrast Media Hives 03/28/2007 Sulindac Anaphylaxis High 08/11/2014 documented as of this encounter (statuses as of 01/08/2023) Medications Medication Sig Dispensed Refills Start Date End Date Status LUVOX 100 MG OR TABS 300mg daily 0 0 10/07/2003 Active IMITREX 100 MG OR TABS as directed 0 0 03/28/2004 Active ATENOLOL 25 MG PO TABS 1 tab daily 0 Active MULTI-VITAMIN PO TABS 1 daily 0 Active Meloxicam 15 MG Tablet Take 1 Tablet by mouth in the morning. 5 10/15/2016 Active Triamterene-HCTZ (MAXZIDE) 37.5-25 MG per capsule Take 1 Capsule by mouth in the morning. 1 08/21/2016 Active Cyanocobalamin (B-12) 100 MCG TABS Take by mouth. 0 A ctive amoxicillin (AMOXIL) 500 MG Capsule Prior to dental procedures 0 04/11/2017 Active Cholecalciferol (VITAMIN D) 2000 units Capsule Take 2,000 Units by mouth daily. 0 Active Atorvastatin Calcium 10 MG Oral Tablet Take 2 Tablets by mouth in the morning. 30 Tab 0 01/30/2021 Active QUEtiapine Fumarate 50 MG Oral Tablet (SEROquel) 1 Tablet. 0 08/26/2019 Active QUEtiapine Fumarate 100 MG Oral Tablet (SEROquel) 0 01/25/2021 Active DULoxetine HCl 60 MG Oral Capsule Delayed Release Particles (Cymbalta) Takes 2? 0 01/25/2021 Active Ozempic (0.25 or 0.5 MG/DOSE) 2 MG/1.5ML Solution Pen-injector INJECT 0.25MG UNDER THE SKIN WEEKLY 0 05/02/2022 Active clonazePAM 0.5 MG Oral Tablet (KlonoPIN) TAKE 1 TABLET BY MOUTH EVERY DAY NEEDED 0 05/22/2022 Active Polyethylene Glycol 3350 17 GM/SCOOP Oral Powder Take 17 g by mouth in the morning. 0 Active Linzess 145 MCG Oral Capsule (linaCLOtide)Indicat ions:Chronic constipation Take 1 Capsule by mouth daily before breakfast. 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 Hypothyroidism 09/11/2013 Overview: ICD-10 update of inactive term Asthma 09/11/2013 Overview: ICD-10 update of inactive term Essential hypertension, benign 4 Obsessive-compulsive disorder 09/11/2013 Migraine without aura, with intractable migraine, so stated, without mention of status migrainosus 09/11/2013 Obesity 09/11/2013 Overview: ICD-10 update of inactive term Myalgia and myositis 09/11/2013 Calculus of kidney 09/11/2013 Hyperlipidemia 09/11/2013 Irritable bowel syndrome 09/11/2013 Allergic rhinitis, cause unspecified Generalized osteoarthritis 07/13/2013 Degeneration of lumbosacral intervertebr al disc 07/13/2013 Migraine with aura, intractable 10/07/19 04 Migraine without aura 10/01/2003 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 documented as of this encounter (statuses as of 01/08/2023) Immunizations Name Administration Dates Next Due DTaP HIB - Dipth/Tet/Acell Pert/HIB 10/17/2009 Seasonal Influenza, Split, IIV3, With Preserve, Inj 01/11/2010,01/28/2009 documented as of this encounter Social History Tobacco Use Types Packs/Day Years Used Date Smoking Tobacco: Never Smokeless Tobacco: Never Alcohol Use Standard Drinks/Week Comments Yes 0 (1 standard drink = 0.6 oz pur e alcohol) rarely Sex Assigned at Date Recorded Not on file Job Start Date Occupation Industry Not on file Not on file Not on file documented as of this encounter Miscellaneous Notes * Telephone Encounter - Jeannette Christianson RN - 01/08/2023 3:07 PM EDT Attempted to reach patient, no answer. LM requesting return call. * Telephone Encounter - Madelin Gloria PA-C - 01/08/2023 2:53 PM EDT I will send in rx for Linzess. Can increase or decrease dose if needed. Take daily prior to breakfast. Can use with or without Miralax, Colace. Madelin Gloria PA-C 01/08/2023 Department of Gastroenterology * Telephone Encounter - Jeannette Christianson RN - 01/07/2023 10:43 AM EDT Has been doing Miralax and Colace. Doesn't think they are helping much. Mentioned that she is now on Ozempic also. Only moving bowels 2-3 times a week and this is in small amounts. Please advise if you would like her to start Linzess or Amitiza (per your last note) documented in this encounter Plan of Treatment Scheduled Procedures Name Priority Associated Diagnoses Date/Ti me COLONOSCOPY FLEXIBLE PROXIMA L DIAGNOSTIC Recall History of colonic polyps Health Maintenance Due Date Last Done Comments COVID-19 Vaccine (#1) 01/27/1961 Pneumococcal Vaccine: Pediatrics (0 to 5 Years) and At-Risk Patients (6 to 64 Years) (1 - PCV) 1968 Depression Screening 1974 HIV Screening 1977 Albumin/Creatinine Ratio 1980 Zoster Vaccines (1 of 2) 2012 DTaP,Tdap,and Td Vaccines (2 - Tdap) 10/18/2019 10/17/2009 *SPIROMETRY ONCE FOR ASTHMA-ADULT 02/22/2022 Influenza Vaccine (FLU shot) (#1) 2022 01/11/2010, 01/28/2009 Mammogram 03/07/2023 03/07/2022, 11/30, 12/01/2013 GFR 05/03/2023 05/03/2022, 05/03, 10/19/2014, Additional history exists Diabetes Screening 08/21/2025 08/21/2022, 0 05/03/2022, 05/28/2017, Additional history exists Lipid Panel 08/22/2027 08/21/2022, 10/19/2014 COLONOSCOPY-EVERY 5 YRS AGES 18-100 09/19/2027 09/18/2022, 09/18/2022, 08/15/2018, Additional history exists Hepatitis C Screening Completed 08/21/2022 GARDASIL-HPV IMMUNIZATION SERIES Aged Out No longer eligible based on patient's age to complete this topic Hepatitis B Aged Out No longer eligi ble based on patient's age to complete this topic MENINGOCOCCAL (MENACTRA/MENVEO) Aged Out No longer eligible based on patient's age to complete this topic documented as of this encounter Medical Devices Not on filedocumented as of this encounter Visit Diagnoses Diagnosis Chronic constipation- Primary Unspecified constipation documented in this encounter Care Teams Size Marker Relationship Specialty Start Date End Date Marla Eric DO [address] [facility], [place] [address] PCP - General Family Medicine 08/21/22 documented as of this encounter
--- OUTSIDE RECORDS SUMMARY | 2023-02-09 00:35 | External Medical Summary ---
Author Name Unknown Address Unknown Organization [id number]:[facility] [place] [address] [place] [address] Laboratory Report Ordering Provider Test Date Status ASHLEE MUNIZ 01/24/2023 13:43:00 Final Observation Date Value Abnormality Reference (Units) Status Bacteria identified in Specimen by Culture 01/24/2023 13:43:00 No significant growth Final Test: Culture, Urine, Quant itative
Specimen Source: Urine, Unspecified
Specimen Type: Urine
Specimen Date: 01/24/2023 1:43 PM
Result Date: 01/25/2023 4:30 PM
Result Status: Final result
Resulting Lab: [facility]
[address]
[facility] [address]

CULTURE

No significant growth

null Performing Location [facility] [place] [place] [address] [place] [id number]
--- OUTSIDE RECORDS SUMMARY | 2023-02-09 00:35 | External Medical Summary | Summary of Care ---
Author Name Unknown Organization [facility] Address [address] [place] [address] Phone [phone] Care Team Providers Care Crepe Sole Scourer Name Role Phone Marla Eric Irina Bree DO Primary Car e Provider Encounter Details Date Type Department Care Team Description 01/07/2023 Telephone Gastroenterology, [place] [address] [place] [address] Madelin Gloria PA-C [address] [place] [address] Allergies Active Allergy Reactions Severity [...] Encounter - Jeannette Christianson RN - 01/08/2023 3:31 PM EDT Patient notified of new script. Also made her aware that it most likely will require a prior auth. * Telephone Encounter - Jeannette Christianson RN [...] constipation documented in this encounter Care Teams Crepe Sole Scourer Relationship Specialty Start Date End Date Marla Eric DO [address] [place] [address] PCP - General Family Medicine 08/21/22 documented as of this encounter
--- OUTSIDE RECORDS SUMMARY | 2023-02-09 00:35 | External Medical Summary | Summary of Care ---
Author Name Unknown Organization [facility] Address [address] [place] [address] Phone [phone] Care Team Providers Care Nuclear Medical Technologist Name Role Phone Marla Eric DO Primary Car e Provider Encounter Details Date Type Department Care Team Description 01/07/2023 Telephone Sleep Disorders, [facility] [address] [place] [address] Erwin Barry PA-C [address] [place], [place] [id number] Allergies Active Allergy Reactions Severity Noted Date Comments Cortisone 09/22/2014 Flushed Iodinated Contrast Media Hives 03/28/2007 Sulindac Anaphylaxis High 08/11/2014 documented as of this encounter (statuses as of 01/07/2023) Medications Medication Sig Dispensed Refills Start Date [...] by mouth in the morning. 0 Active documented as of this encounter (statuses as of 01/07/2023) Active Problems Problem Noted Date Body mass [...] as of this encounter (statuses as of 01/07/2023) Immunizations Name Administration Dates Next Due DTaP [...] encounter Miscellaneous Notes * Telephone Encounter - MARIA ANTONIA Day - 01/07/2023 7:22 AM EDT From [employer]: Patient advised us she doesn't need any CPAP supplies right now as she is not using the machine howshe is supposed to. We will be canceling order at this time. documented in this encounter Plan of Treatment [...] Not on filedocumented as of this encounter Care Teams Nuclear Medical Technologist Relationship Specialty Start Date End Date Marla Eric DO [address] [facility] [place] [address] PCP - General Family Medicine 08/21/22 documented as of this encounter
--- OUTSIDE RECORDS SUMMARY | 2023-02-09 00:35 | External Medical Summary | Summary of Care ---
Author Name Unknown Organization [facility] Address [address] [place] [address] Phone [phone] Care Team Providers Care Paperhanger Name Role Phone Marla Eric Irina Bree DO Primary Car e Provider Encounter Details Date Type Department Care Team Description 01/07/2023 Telephone Gastroenterology, [place] [address] [place] [address] Madelin Gloria PA-C [address] [place] [address] Allergies Active Allergy Reactions Severity [...] constipation documented in this encounter Care Teams Paperhanger Relationship Specialty Start Date End Date Marla Eric DO [address] [facility], [place] [address] PCP - General Family Medicine 08/21/22 documented as of this encounter
--- OUTSIDE RECORDS SUMMARY | 2023-02-09 00:36 | External Medical Summary | Summary of Care ---
Author Name Unknown Organization [facility] Address [address] [place] [address] Phone [phone] Care Team Providers Care Legal Transcriptionist Name Role Phone Marla Eric Irina Staanil DO Primary Car e Provider Reason for Visit * Auth/Cert Specialty Diagnoses / Procedures Referred By Barbie t Referred To Contact Diagnoses Family history of colon cancer Heartburn Family history of colon cancer [Z80.0] Heartburn [R12] Procedures COLONOSCOPY, DIAGNOSTIC (RECTUM) EGD, FLEXIBLE, DIAGNOSTIC COLONOSCOPY FLEXIBLE PROXIMAL DIAGNOSTIC ESOPHAGOGASTRODUODENOSCOPY (EGD), FLEXIBLE, TRANSORAL, DIAGNOSTIC Referral ID Status Reason Start Date Expiration Date Visits Re quested Visits Authorized [id number] Encounter Details Date Type Department Care Team Description 09/18/2022 Hospital Encounter ENDO [facility], Endoscopy [address] [address] Lovely Stewart DO [address] [place] [id number] Various: UGI,GICOLON Allergies Active Allergy Reactions Severity Noted Date Comments Cortisone 09/22/2014 Flushed Iodinated Contrast Media Hives 03/28/2007 Sulindac Anaphylaxis High 08/11/2014 documented as of this encounter (statuses as of 09/19/2022) Medications Medication Sig Dispensed Refills Start Date [...] as of this encounter (statuses as of 09/19/2022) Active Problems Problem Noted Date Body mass [...] as of this encounter (statuses as of 09/19/2022) Immunizations Name Administration Dates Next Due DTaP [...] on file documented as of this encounter Last Filed Vital Signs Vital Sign Reading Time Taken Comments Blood Pressure 116/76 09/18/2022 12:50 PM EDT Pulse 88 09/18/2022 12:50 PM EDT Temperature 36.2 C (97.2 F) 09/18/2022 12:20 PM E DT Respiratory Rate 20 09/18/2022 12:50 PM EDT Oxygen Saturation 100% 09/18/2022 12:50 PM EDT Inhaled Oxygen Concentration - - Weight 114.8 kg (253 lb) 09/13/2022 11:11 AM EDT Height 165.1 cm (5' 5") 09/13/2022 11:11 AM EDT Body Mass Index 42.1 09/13/2022 11:11 AM EDT documented in this encounter H&P Notes * Lovely Stewart, - 09/18/2022 11:15 AM EDT Endoscopy Pre-Procedure Assessment Name: Belén Hurt Date: 09/18/2022 Time: 11:15 AM Procedure: Colonoscopy; with Indication(s) of family history Upper GI Endoscopy; with Indication(s) of heartburn Endoscopy Pre-Procedure Assessment: Prior to the procedure, the patient was identified. The patient's history, medications and allergies were reviewed as per the Anesthesia Assessment. The patient is competent. The risks and benefits of the proposed procedure and the planned sedation were discussed with the patient. All questions were answered and informed consent for the procedure was obtained. This patient has undergone a preprocedural evaluation. A determination has been made to proceed with the planned procedure under [facility] procedural guidelines and the [facility] Non-Emergent, Elective Medical Services and Treatment Recommendations (published on 07-07-19). The community and hospital prevalence of COVID-19 has been discussed as well as this patient's specific risks associated with SARS-CoV-19 infection. Based upon the clinical acuity and patient-specific care considerations, this procedure is deemed a Tier II - Intermediate acuity treatment or service with either progression or the threat of progressive disease related to the delay in treatment. Not providing the service has the potential for increasing morbidity or mortality. Ht 1.651 m (5' 5") | Wt 114.8 kg (253 lb) | BMI 42.10 kg/m | BSA 2.29 m Prior to Admission medications Medication Sig Last Dose Discont. Polyethylene Glycol 3350 17 GM/SCOOP Oral Powder Take 17 g by mouth in the morning. Past Week Atorvastatin Calcium 10 MG Oral Tablet Take 2 Tablets by mouth in the morning. 09/17/2022 DULoxetine HCl 60 MG Oral Capsule Delayed Release Particles (Cymbalta) Takes 2? 09/17/2022 QUEtiapine Fumarate 100 MG Oral Tablet (SEROquel) 09/17/2022 QUEtiapine Fumarate 50 MG Oral Tablet (SEROquel) 1 Tablet. 09/17/2022 Cholecalciferol (VITAMIN D) 2000 units Capsule Take 2,000 Units by mouth daily. Past Week Cyanocobalamin (B-12) 100 MCG TABS Take by mouth. Past Week Meloxicam 15 MG Tablet Take 1 Tablet by mouth in the morning. 09/17/2022 Triamterene-HCTZ (MAXZIDE) 37.5-25 MG per capsule Take 1 Capsule by mouth in the morning. 09/17/2022 ATENOLOL 25 MG PO TABS 1 tab daily 09/15/2022 MULTI-VITAMIN PO TABS 1 daily Past Week IMITREX 100 MG OR TABS as directed Past Week LUVOX 100 MG OR TABS 300mg daily 09/17/2022 clonazePAM 0.5 MG Oral Tablet (KlonoPIN) TAKE 1 TABLET BY MOUTH EVERY DAY NEEDED Over 30 Days Ozempic (0.25 or 0.5 MG/DOSE) 2 MG/1.5ML Solution Pen-injector INJECT 0.25MG UNDER THE SKIN WEEKLY 09/12/2022 amoxicillin (AMOXIL) 500 MG Capsule Prior to dental procedures Over 30 Days Review of patient's allergies indicates: Allergen Reactions Sulindac Anaphylaxis Cortisone Flushed Iodinated Contrast Media Hives Physical Exam: Mental Status Examination: alert and oriented. General: nad, calm Airway Examination: normal oropharyngeal airway and neck mobility. Respiratory Examination: symmetrical excursion Abd:soft/ntd ASA Grade: III - A patient with severe systemic disease. After reviewing the risks and benefits, the patient was deemed in satisfactory condition to undergothe procedure. The anesthesia plan was to use general anesthesia. Lovely Stewart DO Gastroenterology and Hepatology 09/18/2022 documented in this encounter Procedure Notes * Madelin Gloria PA-C - 09/18/2022 11:25 AM EDTAssociated Order(s): COLONOSCOPY [facility] Patient Name: Belén Hurt Procedure Date: 09/18/2022 11:25 AM Date of : 1960 Admit Type: Outpatient Note Status: Finalized Date of : 1960 Admit Type: Outpatient Age: 62 Room: [facility] 3 Gender: Female Note Status: Finalized Procedure: Colonoscopy Indications: Family history of colon cancer in maternal grandmother in her 70s, family history of rectal cancer in father Providers: Lovely Stewart DO (Doctor) Patient Profile: This is a 62 year old female. Refer to note in patient chart for documentation of history and physical. Referring MD: [place] Patten, Marla Eric DO Medicines: General Anesthesia Complications: No immediate complications. Procedure: Pre-Anesthesia Assessment: - Prior to the procedure, a History and Physical was performed, and patient medications and allergies were reviewed. The risks and benefits of the procedure and the sedation options and risks were discussed with the patient. All questions were answered and informed consent was obtained. Patient identification and proposed procedure were verified by the physician, the nurse and the solar design engineer in the procedure room. Mental Status Examination: alert and oriented. Airway Examination: Mallampati Class II (the uvula but not tonsillar pillars visualized). Respiratory Examination: clear to auscultation. CV Examination: RRR, no murmurs, no S3 or S4. Prophylactic Antibiotics: The patient does not require prophylactic antibiotics. Prior Anticoagulants: The patient has taken no anticoagulant or antiplatelet agents. ASA Grade Assessment: III - A patient with severe systemic disease. After reviewing the risks and benefits, the patient was deemed in satisfactory condition to undergo the procedure. The anesthesia plan was to use general anesthesia. Immediately prior to administration of medications, the patient was re-assessed for adequacy to receive sedatives. The physical status of the patient was re-assessed after the procedure. After I obtained informed consent, the scope was passed under direct vision. All instruments were visually inspected immediately before and after removal from the patient to ensure they are fully intact. Throughout the procedure, the patient's blood pressure, pulse, and oxygen saturations were monitored continuously.The colonoscopy was performed without difficulty. The patient tolerated the procedure well. The quality of the bowel preparation was good. The PCF-H180AL Colonoscope ([id number]) was introduced through the anus and advanced to the cecum, identified by appendiceal orifice and ileocecal valve. Findings & Specimens: The perianal and digital rectal examinations were normal. Two sessile polyps were found in the descending colon. The polyps were 2 to 3 mm in size. These polyps were removed with a cold snare. Resection and retrieval were complete. Verification of patient identification for the specimen was done by the physician and nurse using the patient's name and date. The pathology specimen was placed into Bottle A. The retroflexed view of the distal rectum and anal verge was normal and showed no anal or rectal abnormalities. Impression: - Two 2 to 3 mm polyps in the descending colon, removed with a cold snare. Resected and retrieved. Recommendation: - Patient has a contact number available for emergencies. The signs and symptoms of potential delayed complications were discussed with the patient. Return to normal activities tomorrow. Written discharge instructions were provided to the patient. - The patient will be observed post-procedure, until all discharge criteria are met. - Discharge patient to home (with escort). - Resume previous diet. - Continue present medications. - Await pathology results. - Repeat colonoscopy for surveillance based on pathology results. Lovely Stewart DO 09/18/2022 12:19:23 PM This report has been signed electronically. Estimated Blood Loss: Estimated blood loss was minimal. * Madelin Gloria PA-C - 09/18/2022 11:24 AM EDTAssociated Order(s): UPPER GI ENDOSCOPY [facility] Patient Name: Belén Hurt Procedure Date: 09/18/2022 11:24 AM Date of : 1960 Admit Type: Outpatient Note Status: Finalized Date of : 1960 Admit Type: Outpatient Age: 62 Room: [facility] Gender: Female Note Status: Finalized Procedure: Upper GI endoscopy Indications: Heartburn Providers: Lovely Stewart DO (Doctor) Patient Profile: This is a 62 year old female. Refer to note in patient chart for documentation of history and physical. Referring MD: [place] Patten, Marla Eric DO Medicines: General Anesthesia Complications: No immediate complications. Procedure: Pre-Anesthesia Assessment: - Prior to the procedure, a History and Physical was performed, and patient medications and allergies were reviewed. The risks and benefits of the procedure and the sedation options and risks were discussed with the patient. All questions were answered and informed consent was obtained. Patient identification and proposed procedure were verified by the physician, the nurse and the solar design engineer in the procedure room. Mental Status Examination: alert and oriented. Airway Examination: Mallampati Class II (the uvula but not tonsillar pillars visualized). Respiratory Examination: clear to auscultation. CV Examination: RRR, no murmurs, no S3 or S4. Prophylactic Antibiotics: The patient does not require prophylactic antibiotics. Prior Anticoagulants: The patient has taken no anticoagulant or antiplatelet agents. ASA Grade Assessment: III - A patient with severe systemic disease. After reviewing the risks and benefits, the patient was deemed in satisfactory condition to undergo the procedure. The anesthesia plan was to use general anesthesia. Immediately prior to administration of medications, the patient was re-assessed for adequacy to receive sedatives. The physical status of the patient was re-assessed after the procedure. After obtaining informed consent, the endoscope was passed under direct vision. All instruments were visually inspected immediately before and after removal from the patient to ensure they are fully intact. Throughout the procedure, the patient's blood pressure, pulse, and oxygen saturations were monitored continuously.The upper GI endoscopy was accomplished without difficulty. The patient tolerated the procedure well. The GIF-HQ190 Endoscope ([id number]) was introduced through the mouth, and advanced to the second part of duodenum. Findings & Specimens: The Z-line was regular and was found 40 cm from the incisors. The examined esophagus was normal. The entire examined stomach was normal. The duodenal bulb and second portion of the duodenum were normal. Impression: - Z-line regular, 40 cm from the incisors. - Normal esophagus. - Normal stomach. - Normal duodenal bulb and second portion of the duodenum. - No specimens collected. Recommendation: - Patient has a contact number available for emergencies. The signs and symptoms of potential delayed complications were discussed with the patient. Return to normal activities tomorrow. Written discharge instructions were provided to the patient. - The patient will be observed post-procedure, until all discharge criteria are met. - Discharge patient to home (with escort). - Resume previous diet. - Continue present medications. - Proceed to same day colonoscopy. Lovely Stewart DO 09/18/2022 11:47:56 AM This report has been signed electronically. Estimated Blood Loss: Estimated blood loss: none. documented in this encounter Nursing Notes * Negra Whittaker LPN - 09/18/2022 12:55 PM EDT To car by Brittany. * Negra Whittaker LPN - 09/18/2022 12:52 PM EDT Dressing @ bedside. * Negra Whittaker LPN - 09/18/2022 12:45 PM EDT To side of stretcher. * Negra Whittaker LPN - 09/18/2022 12:41 PM EDT Discharge inst. procedure results medication list reviewed with pt. & copies sent ,verbal understanding. * Negra Whittaker LPN - 09/18/2022 12:32 PM EDT HOB up to 45 degrees, PO fluids given and tolerated. In to talk with pt.re: procedure results. * Negra Whittaker LPN - 09/18/2022 12:28 PM EDT Pt. Received in Recovery via stretcher. Awakens easily,Denies any c/o pain.VSS,Resting quietly * Georgi Baltazar RN - 09/18/2022 12:20 PM EDT EGD/Colonoscopy completed. Pt nav procedure well. Sedated by CASH ON DELIVERY CLERK. See anesthesia record for VS andmedications given. Abd soft. Airway patent. Pt to recovery on L side with HOB elevated. Report to recovery room nurse. Bedside cleaning done. Specimen(s) and location(s) verified with physician post procedure 12:20 PM Georgi Baltazar RN * Irina Saucedo LPN - 09/18/2022 11:11 AM EDT Nursing assessment completed. Pt resting comfortably on stretcher awaiting for procedure room to become available. documented in this encounter Plan of Treatment Upcoming Encounters Date Type Specialty Care Team Description 10/09/2022 PulmDiagnostic Sleep Disorders Gl, Sleep Med Home Study [address] [place] [id number] 01/24/2023 Office Visit Gastroenterology Madelin Gloria PA-C [address] [place] [address] Pending Results Name Type Priority Associated Diagnoses Date /Time SURGICAL PATHOLOGY Pathology Routine 2022 12:21 PM EDT Scheduled Orders Name Type Priority Associated Diagnoses Orde r Schedule SURGICAL PATHOLOGY Pathology Routine One Ti me for 1 Occurrences starting 09/18/2022 until 09/18/2022, 1 completed Health Maintenance Due Date Last Done Comments COVID-19 Vaccine (#1) 01/27/1963 Pneumococcal Vaccine: Pediatrics (0 to 5 Years) and At-Risk Patients (6 to 64 Years) (1 - PCV) 1968 Depression Screening, Annual for Pts 12 and Over 1974 HIV Screening 1977 Albumin/Creatinine Ratio 1980 Zoster Vaccines (1 of 2) 2012 DTaP,Tdap,and Td Vaccines (2 - Tdap) 10/18/2019 10/17/2009 *SPIROMETRY ONCE FOR ASTHMA-ADULT 02/22/2022 Influenza Vaccine (FLU shot) (Season Ended) 2022 01/11/2010, 01/28/2009 Mammogram 03/07/2023 03/07/2022, 11/30, 12/01/2013 GFR 05/03/2023 05/03/2022, 05/03, 10/19/2014, Additional history exists Diabetes Screening 08/21/2025 08/21/2022, 0 05/03/2022, 05/28/2017, Additional history exists Lipid Panel 08/22/2027 08/21/2022, 10/19/2014 COLONOSCOPY-EVERY 5 YRS AGES 18-100 09/19/2027 09/18/2022, 08/15/2018, 08/15/2018 GARDASIL-HPV IMMUNIZATION SERIES Aged Out No longer eligible based on patient's age to complete this topic Hepatitis B Aged Out No longer eligi ble based on patient's age to complete this topic MENINGOCOCCAL (MENACTRA/MENVEO) Aged Out No longer eligible based on patient's age to complete this topic documented as of this encounter Medical Devices Not on filedocumented as of this encounter Procedures Procedure Name Priority Date/Time Associated Diagnosis Comments COLONOSCOPY 09/18/2022 11:25 AM EDT UPPER GI ENDOSCOPY 09/18/2022 11 :24 AM EDT documented in this encounter Results * COLONOSCOPY (09/18/2022 11:25 AM EDT) 09/18/2022 11:2 5 AM EDT Procedure Note Madelin Gloria PA-C - 09/18/2022 11:25 AM EDT [facility] Patient Name: Belén Hurt Procedure Date: 09/18/2022 11:25 AM Date of : 1960 Admit Type: Outpatient Note Status:Finalized Date of : 1960 Admit Type: Outpatient Age: 62 Room: [facility] 3 Gender: Female Note Status: Finalized Procedure: Colonoscopy Indications: Family history of colon cancer in maternalgrandmother in her 70s, family history of rectal cancer in father Providers: Lovely Stewart DO (Doctor) Patient Profile: This is a 62 year old female. Refer to note inpatient chart for documentation of history and physical. Referring MD: [place] Patten, Malra Pena DO Medicines: General Anesthesia Complications: No immediate complications. Procedure: Pre-Anesthesia Assessment: - Prior to the procedure, a History and Physicalwas performed, and patient medications and allergies were reviewed. The risksand benefits of the procedure and the sedation options and risks were discussed withthe patient. All questions were answered and informed consent was obtained. Patientidentification and proposed procedure were verified by the physician, the nurseand the solar design engineer in the procedure room. Mental Status Examination: alertand oriented. Airway Examination: Mallampati Class II (the uvula but not tonsillarpillars visualized). Respiratory Examination: clear to auscultation. CV Examination:RRR, no murmurs, no S3 or S4. Prophylactic Antibiotics: The patient does notrequire prophylactic antibiotics. Prior Anticoagulants: The patient has taken noanticoagulant or antiplatelet agents. ASA Grade Assessment: III - A patient with severesystemic disease. After reviewing the risks and benefits, the patient was deemed insatisfactory condition to undergo the procedure. The anesthesia plan was to usegeneral anesthesia. Immediately prior to administration of medications, the patient wasre-assessed for adequacy to receive sedatives. The physical status of the patient wasre-assessed after the procedure. After I obtained informed consent, the scope waspassed under direct vision. All instruments were visually inspected immediatelybefore and after removal from the patient to ensure they are fully intact. Throughout the procedure, the patient's bloodpressure, pulse, and oxygen saturations were monitored continuously.The colonoscopy wasperformed without difficulty. The patient tolerated the procedure well. The qualityof the bowel preparation was good. The PCF-H180AL Colonoscope ([id number]) was introducedthrough the anus and advanced to the cecum, identified by appendiceal orifice andileocecal valve. Findings & Specimens: The perianal and digital rectal examinations were normal. Two sessile polyps were found in the descending colon. The polypswere 2 to 3 mm in size. These polyps were removed with a cold snare. Resection and retrieval werecomplete. Verification of patient identification for the specimen was done by the physician and nurseusing the patient's name and date. The pathology specimen was placed into Bottle A. The retroflexed view of the distal rectum and anal verge was normaland showed no anal or rectal abnormalities. Impression: - Two 2 to 3 mm polyps in the descending colon,removed with a cold snare. Resected and retrieved. Recommendation: - Patient has a contact number available foremergencies. The signs and symptoms of potential delayed complications were discussed withthe patient. Return to normal activities tomorrow. Written discharge instructionswere provided to the patient. - The patient will be observed post-procedure,until all discharge criteria are met. - Discharge patient to home (with escort). - Resume previous diet. - Continue present medications. - Await pathology results. - Repeat colonoscopy for surveillance based onpathology results. Lovely Stewart DO 09/18/2022 12:19:23 PM This report has been signed electronically. Estimated Blood Loss: Estimated blood loss was minimal. Madelin Gloria PA-C GASTRO LOWER * UPPER GI ENDOSCOPY (09/18/2022 11:24 AM EDT) 09/18/2022 11:2 4 AM EDT Procedure Note Madelin Gloria PA-C - 09/18/2022 11:24 AM EDT [facility] Patient Name: Belén Hurt Procedure Date: 09/18/2022 11:24 AM Date of : 1960 Admit Type: Outpatient Note Status:Finalized Date of : 1960 Admit Type: Outpatient Age: 62 Room: Endo 3 Gender: Female Note Status: Finalized Procedure: Upper GI endoscopy Indications: Heartburn Providers: Lovely Stewart DO (Doctor) Patient Profile: This is a 62 year old female. Refer to note inpatient chart for documentation of history and physical. Referring MD: [place] Patten, Marla Pena DO Medicines: General Anesthesia Complications: No immediate complications. Procedure: Pre-Anesthesia Assessment: - Prior to the procedure, a History and Physicalwas performed, and patient medications and allergies were reviewed. The risksand benefits of the procedure and the sedation options and risks were discussed withthe patient. All questions were answered and informed consent was obtained. Patientidentification and proposed procedure were verified by the physician, the nurseand the solar design engineer in the procedure room. Mental Status Examination: alertand oriented. Airway Examination: Mallampati Class II (the uvula but not tonsillarpillars visualized). Respiratory Examination: clear to auscultation. CV Examination:RRR, no murmurs, no S3 or S4. Prophylactic Antibiotics: The patient does notrequire prophylactic antibiotics. Prior Anticoagulants: The patient has taken noanticoagulant or antiplatelet agents. ASA Grade Assessment: III - A patient with severesystemic disease. After reviewing the risks and benefits, the patient was deemed insatisfactory condition to undergo the procedure. The anesthesia plan was to usegeneral anesthesia. Immediately prior to administration of medications, the patient wasre-assessed for adequacy to receive sedatives. The physical status of the patient wasre-assessed after the procedure. After obtaining informed consent, the endoscope waspassed under direct vision. All instruments were visually inspected immediatelybefore and after removal from the patient to ensure they are fully intact. Throughout the procedure, the patient's bloodpressure, pulse, and oxygen saturations were monitored continuously.The upper GI endoscopywas accomplished without difficulty. The patient tolerated the procedurewell. The GIF-HQ190 Endoscope ([id number]) was introduced through the mouth, andadvanced to the second part of duodenum. Findings & Specimens: The Z-line was regular and was found 40 cm from the incisors. The examined esophagus was normal. The entire examined stomach was normal. The duodenal bulb and second portion of the duodenum were normal. Impression: - Z-line regular, 40 cm from the incisors. - Normal esophagus. - Normal stomach. - Normal duodenal bulb and second portion of theduodenum. - No specimens collected. Recommendation: - Patient has a contact number available foremergencies. The signs and symptoms of potential delayed complications were discussed withthe patient. Return to normal activities tomorrow. Written discharge instructionswere provided to the patient. - The patient will be observed post-procedure,until all discharge criteria are met. - Discharge patient to home (with escort). - Resume previous diet. - Continue present medications. - Proceed to same day colonoscopy. Lovely Stewart DO 09/18/2022 11:47:56 AM This report has been signed electronically. Estimated Blood Loss: Estimated blood loss: none. Madelin Gloria PA-C GASTRO UPPER documented in this encounter Administered Medications Inactive Administered Medications - up to 3 most recent administrations Medication Order MAR Action Action Date Dose Rate Site isolyte-S pH 7.4 infusion Intravenous, at 50 mL/hr, Plasma-LYTE 148, isolyte-S, and isolyte-S pH 7.4 are considered equivalent - including for MAR barcode scanning., CONTINUOUS, Starting on Sat09/18/22 at 1145, Until Sat09/18/22 at 1444, Pre-Op Continue from Pre-Op 09/18/2022 11:40 AM EDT 50 mL/hr New Bag 09/18/2022 11:34 AM EDT 50 mL/hr documented in this encounter Active and Recently Administered Medications Times are shown in EDT. Continuous Medication Order 09/16/2022 09/17/2022 09/18/2022 isolyte-S pH 7.4 infusion Intravenous, at 50 mL/hr, Plasma-LYTE 148, isolyte-S, and isolyte-S pH 7.4 are considered equivalent - including for MAR barcode scanning., CONTINUOUS, Starting on Sat09/18/22 at 1145, Until Sat09/18/22 at 1444, Pre-Op 1134 (New Bag - Prov ider: Irina Saucedo LPN)1140 (Continue from Pre-Op - Provider: Kyra England CRNA)1216 (Stopped - Provider: Kyra England CRNA) documented in this encounter Care Teams Legal Transcriptionist Relationship Specialty Start Date End Date Marla Eric DO [address] [facility], [place] [phone] PCP - General Family Medicine 08/21/22 documented as of this encounter
--- OUTSIDE RECORDS SUMMARY | 2023-02-09 00:36 | External Medical Summary | Summary of Care ---
Author Name Unknown Organization [facility] Address [address] [place] [address] Phone [phone] Care Team Providers Care Sight Effects Specialist Name Role Phone Marla Eric Irina Nowakanil DO Primary Car e Provider Reason for Visit * Reason Onset Date Comments Durable Medical Equipment 10/11/2022 Cpap o rder Encounter Details Date Type Department Care Team Description 10/11/2022 Telephone Sleep Disorders, [facility] [address] [place] [address] Isabella Mattson MD [address] [place] [address] Durable Medical Equipment (Cpap order) Allergies Active Allergy Reactions Severity Noted Date Comments Cortisone 09/22/2014 Flushed Iodinated Contrast Media Hives 03/28/2007 Sulindac Anaphylaxis High 08/11/2014 documented as of this encounter (statuses as of 10/11/2022) Medications Medication Sig Dispensed Refills Start Date [...] as of this encounter (statuses as of 10/11/2022) Active Problems Problem Noted Date Body mass [...] as of this encounter (statuses as of 10/11/2022) Immunizations Name Administration Dates Next Due DTaP [...] encounter Miscellaneous Notes * Telephone Encounter - Barbara Rhodes LPN - 10/11/2022 10:38 AM EDT Auto CPAP orders were placed into the [employer] portal on 10/11/2022. documented in this encounter Plan of Treatment [...] 09/19/2027 09/18/2022, 09/18/2022, 08/15/2018, Additional history exists GARDASIL-HPV IMMUNIZATION SERIES Aged Out No longer eligible based on patient's age to complete this topic Hepatitis B Aged Out No longer eligi ble based on patient's age to complete this topic MENINGOCOCCAL (MENACTRA/MENVEO) Aged Out No longer eligible based on patient's age to complete this topic documented as of this encounter Medical Devices Not on filedocumented as of this encounter Care Teams Sight Effects Specialist Relationship Specialty Start Date End Date Marla Eric DO [address] [place] [address] PCP - General Family Medicine 08/21/22 documented as of this encounter
--- OUTSIDE RECORDS SUMMARY | 2023-02-09 00:36 | External Medical Summary | Summary of Care ---
Author Name Unknown Organization [facility] Address [address] [place] [address] Phone [phone] Care Team Providers Care Sewer Repairer Name Role Phone Marla Eric DO Primary Car e Provider Encounter Details Date Type Department Care Team Description 12/05/2022 Telephone Sleep Disorders, [facility] [address] [place] [address] Erwin Barry PA-C [address] [place], [place] [phone] Allergies Active Allergy Reactions Severity Noted Date Comments Cortisone 09/22/2014 Flushed Iodinated Contrast Media Hives 03/28/2007 Sulindac Anaphylaxis High 08/11/2014 documented as of this encounter (statuses as of 12/05/2022) Medications Medication Sig Dispensed Refills Start Date [...] as of this encounter (statuses as of 12/05/2022) Active Problems Problem Noted Date Body mass [...] as of this encounter (statuses as of 12/05/2022) Immunizations Name Administration Dates Next Due DTaP [...] Telephone Encounter - MARIA ANTONIA Day - 12/05/2022 11:04 AM EDT CPAP supply order entered TH 12/05/2022. documented in this encounter Plan of Treatment [...] filedocumented as of this encounter Care Teams Sewer Repairer Relationship Specialty Start Date End Date Marla Eric DO [address] [place] [address] PCP - General Family Medicine 08/21/22 documented as of this encounter
--- OUTSIDE RECORDS SUMMARY | 2023-02-09 00:36 | External Medical Summary | Summary of Care ---
Author Name Unknown Organization [facility] Address [address] [place] [address] Phone [phone] Care Team Providers Care Stove Tender Name Role Phone Marla Eric Irinamayra Giron DO Primary Car e Provider Reason for Visit * Reason Onset Date Comments Order Request 10/10/2022 Encounter Details Date Type Department Care Team Description 10/10/2022 Telephone Sleep Disorders, [facility] [address] [place] [address] Isabella Mattson MD [address] [place] [address] Order Request Allergies Active Allergy Reactions Severity Noted Date Comments Cortisone 09/22/2014 Flushed Iodinated Contrast Media Hives 03/28/2007 Sulindac Anaphylaxis High 08/11/2014 documented as of this encounter (statuses as of 10/10/2022) Medications Medication Sig Dispensed Refills Start Date [...] as of this encounter (statuses as of 10/10/2022) Active Problems Problem Noted Date Body mass [...] as of this encounter (statuses as of 10/10/2022) Immunizations Name Administration Dates Next Due DTaP [...] on file documented as of this encounter Plan of Treatment Scheduled Procedures [...] as of this encounter Visit Diagnoses Diagnosis MARIA ANTONIA (obstructive sleep apnea)- Primary Obstructive sleep apnea (adult) (pediatric) documented in this encounter Care Teams Stove Tender Relationship Specialty Start Date End Date Marla Eric DO [address] [place] [address] PCP - General Family Medicine 08/21/22 documented as of this encounter
--- OUTSIDE RECORDS SUMMARY | 2023-02-09 00:36 | External Medical Summary | Summary of Care ---
Author Name Unknown Organization [facility] Address [address] [place] [address] Phone [phone] Care Team Providers Care Solvent Recoverer Name Role Phone Jeaneth Marla Giron DO Primary Car e Provider Reason for Visit * Reason Onset Date Comments Rash 11/17/2022 Encounter Details Date Type Department Care Team Description 11/17/[address] [address] Sara Hunter, [address] [phone] Candidiasis, intertrigo* Allergies Active Allergy Reactions Severity Noted Date Comments Cortisone 09/22/2014 Flushed Iodinated Contrast Media Hives 03/28/2007 Sulindac Anaphylaxis High 08/11/2014 documented as of this encounter (statuses as of 11/17/2022) Medications Medication Sig Dispensed Refills Start Date [...] 100 MCG TABS Take by mouth. 0 Active amoxicillin (AMOXIL) 500 MG Capsule Prior to [...] by mouth in the morning. 0 Active Clotrimazole 1 % External Cream (Lotrimin)Indicat ions:Candidiasis, intertrigo Apply topically to affected area 2 times a day for 14 days. Apply to affected areas 30 g 1 11/17/2022 12/01/2022 Active Ketoconazole 2 % External Cream Apply topically to affected area 2 times a day for 14 days. Apply to affected areas 30 g 1 11/17/2022 11/17/2022 Discontinued documented as of this encounter (statuses as of 11/17/2022) Active Problems Problem Noted Date Body mass [...] as of this encounter (statuses as of 11/17/2022) Immunizations Name Administration Dates Next Due DTaP [...] on file documented as of this encounter Progress Notes * Sara Hunter, DNP - 11/17/2022 9:50 AM EDT Patient location: HOME. I was in a hospital or clinic location. After connecting through [employer],patient was verified with two unique identifiers. Patient (or authorized legal junior sales representative) was then informed that this was a Telemedicine visit and being conducted confidentially over secure lines. Methods to assure confidentiality were taken. Patient acknowledged consent and understanding of pr ivacy and security of the Telemedicine visit. The patient agreed to participate. SUBJECTIVE: Belén Hurt is a 62 year old female who is being evaluated for rash. Pt states she has a small rash under both her breasts x 1 week. Used OTC cortisone without relief. States areas are now red and sore. No fever. Pt states rash is warm to touch. Patient was accompanied by Self. Symptoms include: Type of rash: itchy, painful, red Rash location: under breasts Exposure to No known exposures Rash duration: 1 weeks Rash condition is spreading Patient denies other symptoms Severity of Symptoms: Minimal Modifying Factors (what was done since onset of Symptoms): OTC steroid creams Other associated Signs and Symptoms: none Fevers have been absent. ROS EXAM: as above. All other systems reviewed and are neg Past Medical History: Diagnosis Date Allergic rhinitis Anxiety Arthritis DDD (degenerative disc disease), cervical DDD (degenerative disc disease), lumbosacral Depression GERD (gastroesophageal reflux disease) Goiter Hyperlipidemia Hypertension IBS (irritable bowel syndrome) Kidney stones Migraines Myalgia Obesity OCD (obsessive compulsive disorder) Past Surgical History: Procedure Laterality Date DELIVERY 1984 DELIVERY 1988 COLONOSCOPY, DIAGNOSTIC (RECTUM) N/A 08/15/2018 normal/recall 5 years/COLONOSCOPY FLEXIBLE PROXIMAL DIAGNOSTIC performed by Sana Mallory DO at ENDOSCOPY [facility] COLONOSCOPY, DIAGNOSTIC (RECTUM) N/A 09/18/2022 biopsies show adenomatous polyps/recall 5 years/COLONOSCOPY FLEXIBLE PROXIMAL DIAGNOSTIC performed by Lovely Stewart DO at ENDOSCOPY [facility] EGD, FLEXIBLE, DIAGNOSTIC 09/18/2022 normal/ESOPHAGOGASTRODUODENOSCOPY (EGD), FLEXIBLE, TRANSORAL, DIAGNOSTIC performed by Lovely Stewart DO at ENDOSCOPY [facility] LAPAROSCOPY,EXPLOR COMMON DUCT 1995 MISCELLANEOUS ORDER ([facility] ONLY) 1978 ankle surgery REMOVAL OF KIDNEY STONE, OVER 2CM REMOVAL OF OVARY(S) Bilateral 2005 REMOVE GALLBLADDER SPINAL FUSION, LUMBAR, COMBINED 04/2014 TOTAL ABD HYSTERECTOMY W/WO REMOVAL OF TUBE(S) 2005 TOTAL HIP REPLACEMENT & PROSTHESIS Right 07/2014 Social History Tobacco Use Smoking status: Never Smokeless tobacco: Never Substance Use Topics Alcohol use: Yes Alcohol/week: 0.0 standard drinks Comment: rarely Drug use: No Current Outpatient Medications Medication Sig Dispense Refill ATENOLOL 25 MG PO TABS 1 tab daily MULTI-VITAMIN PO TABS 1 daily Meloxicam 15 MG Tablet Take 1 Tablet by mouth in the morning. 5 Triamterene-HCTZ (MAXZIDE) 37.5-25 MG per capsule Take 1 Capsule by mouth in the morning. 1 Cyanocobalamin (B-12) 100 MCG TABS Take by mouth. Cholecalciferol (VITAMIN D) 2000 units Capsule Take 2,000 Units by mouth daily. Atorvastatin Calcium 10 MG Oral Tablet Take 2 Tablets by mouth in the morning. 30 Tab QUEtiapine Fumarate 50 MG Oral Tablet (SEROquel) 1 Tablet. QUEtiapine Fumarate 100 MG Oral Tablet (SEROquel) DULoxetine HCl 60 MG Oral Capsule Delayed Release Particles (Cymbalta) Takes 2? Ozempic (0.25 or 0.5 MG/DOSE) 2 MG/1.5ML Solution Pen-injector INJECT 0.25MG UNDER THE SKIN WEEKLY Polyethylene Glycol 3350 17 GM/SCOOP Oral Powder Take 17 g by mouth in the morning. Ketoconazole 2 % External Cream Apply topically to affected area 2 times a day for 14 days. Apply to affected areas 30 g 1 LUVOX 100 MG OR TABS 300mg daily 0 0 IMITREX 100 MG OR TABS as directed 0 0 amoxicillin (AMOXIL) 500 MG Capsule Prior to dental procedures (Patient not taking: Reported on 11/17/2022) 0 clonazePAM 0.5 MG Oral Tablet (KlonoPIN) TAKE 1 TABLET BY MOUTH EVERY DAY NEEDED (Patient not taking: Reported on 11/17/2022) No current facility-administered medications for this visit. Review of patient's allergies indicates: Allergen Reactions Sulindac Anaphylaxis Cortisone Flushed Iodinated Contrast Media Hives OBJECTIVE: There were no vitals taken for this visit. General: Pt is alert and oriented. Speech is clear and coherent Skin: under breasts is red and appears macular and moist Assessment: (B37.2) Candidiasis, intertrigo (primary encounter diagnosis) Plan: Clotrimazole 1 % External Cream (Lotrimin) Keep areas clean and dry Stop steroid cream F/u with pcp in 3-5 days Patient goals for plan of care were discussed Sara Hunter DNP [facility], [address] [address] documented in this encounter Plan of Treatment [...] as of this encounter Visit Diagnoses Diagnosis Candidiasis, intertrigo- Primary Candidiasis of skin and nails documented in this encounter Care Teams Solvent Recoverer Relationship Specialty Start Date End Date Marla Eric DO [address] [facility], [place] [phone] PCP - General Family Medicine 08/21/22 documented as of this encounter
--- OUTSIDE RECORDS SUMMARY | 2023-02-09 00:36 | External Medical Summary | Summary of Care ---
Author Name Unknown Organization [facility] Address [address] [place] [address] Phone [phone] Care Team Providers Care Garment Worker Name Role Phone Marla Eric DO Primary Car e Provider Reason for Visit * Reason Comments Sleep Problems Encounter Details Date Type Department Care Team Description 10/09/2022 PulmDiagnostic Sleep Lab, [facility] [address] [place], [place] [phone] [facility], Sleep Med Home Study [address] [place] [address] MARIA ANTONIA (obstructive sleep apnea)* Allergies Active Allergy Reactions Severity Noted Date [...] as of this encounter Progress Notes * Isabella Mattson MD - 10/10/2022 11:23 AM EDT [employer] scanned documented in this encounter Plan of Treatment [...] (pediatric) documented in this encounter Care Teams Garment Worker Relationship Specialty Start Date End Date Marla Eric DO [address] [place] [address] PCP - General Family Medicine 08/21/22 documented as of this encounter
--- OUTSIDE RECORDS SUMMARY | 2023-02-09 00:36 | External Medical Summary | Summary of Care ---
Author Name Unknown Organization [facility] Address [address] [place] [address] Phone [phone] Care Team Providers Care Ict Analyst Name Role Phone Jeaneth Marla Giron DO Primary Car e Provider Reason for Visit * Reason Onset Date Comments Durable Medical Equipment 11/02/2022 Encounter Details Date Type Department Care Team Description 11/02/2022 Telephone Sleep Disorders, [facility] [address] [place], [place] [phone] Erwin Barry PA-C [address] [place], [place] [phone] Durable Medical Equipment Allergies Active Allergy Reactions Severity Noted Date Comments Cortisone 09/22/2014 Flushed Iodinated Contrast Media Hives 03/28/2007 Sulindac Anaphylaxis High 08/11/2014 documented as of this encounter (statuses as of 11/02/2022) Medications Medication Sig Dispensed Refills Start Date [...] as of this encounter (statuses as of 11/02/2022) Active Problems Problem Noted Date Body mass [...] as of this encounter (statuses as of 11/02/2022) Immunizations Name Administration Dates Next Due DTaP [...] encounter Miscellaneous Notes * Telephone Encounter - Svitlana Peterson LPN - 11/02/2022 11:15 AM EDT DME; [facility] is requesting script for Nasal Mask documented in this encounter Plan of Treatment [...] (pediatric) documented in this encounter Care Teams Ict Analyst Relationship Specialty Start Date End Date Marla Eric DO [address] [place] [address] PCP - General Family Medicine 08/21/22 documented as of this encounter
--- OUTSIDE RECORDS SUMMARY | 2023-02-09 00:37 | External Medical Summary | Summary of Care ---
Author Name Unknown Organization [facility] Address [address] [place] [address] Phone [phone] Care Team Providers Care Water Gas Operator Name Role Phone Marla Eric Irina Gregoriaanil DO Primary Car e Provider Reason for Referral * Precert (Within 10 days (routine)) - Pending Review Specialty Diagnoses / Procedures Referred By Contac t Referred To Contact Radiology Diagnoses Neurogenic claudication Procedures MRI L SPINE WO CONTRAST Arthur Tejeda PA-C [address] [place] [address] Referral ID Status Reason Start Date Expiration Date V isits Requested Visits Authorized [id number] Pending Review 08/16/2022 999 999 Reason for Visit * Precert (Within 10 days (routine)) - Pending Review Specialty Diagnoses / Procedures Referred By Contitalia lerma Referred To Contact Radiology Diagnoses Neurogenic claudication Procedures MRI L SPINE WO CONTRAST Arthur Tejeda PA-C [address] [place] [address] Referral ID Status Reason Start Date Expiration Date V isits Requested Visits Authorized [id number] Pending Review 08/16/[phone] Encounter Details Date Type Department Care Team Description 08/30/2022 Hospital Encounter Radiology, [address] [address] Arrived Allergies Active Allergy Reactions Severity Noted Date Comments Cortisone 09/22/2014 Flushed Iodinated Contrast Media Hives 03/28/2007 Sulindac Anaphylaxis High 08/11/2014 documented as of this encounter (statuses as of 08/31/2022) Medications Medication Sig Dispensed Refills Start Date [...] Polyethylene Glycol 3350 17 GM/SCOOP Oral Powder (MiraLax) Take 17 g by mouth in the morning. 0 Active documented as of this encounter (statuses as of 08/31/2022) Active Problems Problem Noted Date Body mass [...] as of this encounter (statuses as of 08/31/2022) Immunizations Name Administration Dates Next Due DTaP [...] as of this encounter Plan of Treatment Upcoming Encounters Date Type Specialty Care Team Description 09/18/2022 Hospital Encounter Endoscopy Lovely Stewart DO [address] [place] [address] 09/18/2022 Surgery Endoscopy Lovely Stewart DO [address] [place] [address] COLONOSCOPY FLEXIBLE PROXIMAL DIAGNOSTIC 01/24/2023 Office Visit Gastroenterology Madelin Gloria PA-C [address] [place] [address] Pending Results Name Type Priority Associated Diagnoses Date /Time MRI L SPINE WO CONTRAST Medical Imaging Routine Neurogenic claudication 08/30/2022 4:58 PM EDT Scheduled Orders Name Type Priority Associated Diagnoses Orde r Schedule MRI L SPINE WO CONTRAST Medical Imaging Routine Neurogenic claudication 1 Occurrences starting 08/30/2022 until 08/30/2022 Scheduled Procedures Name Priority Associated Diagnoses Date/Ti me COLONOSCOPY FLEXIBLE PROXIMA L DIAGNOSTIC Recall Family history of colon cancer Heartburn 09/18/2022 11:30 AM EDT ESOPHAGOGASTRODUODENOSCOPY ( EGD), FLEXIBLE, TRANSORAL, DIAGNOSTIC Recall Family history of colon cancer Heartburn 09/18/2022 11:30 AM EDT Health Maintenance Due Date Last Done Comments [...] 05/03/2023 05/03/2022, 05/03, 10/19/2014, Additional history exists COLONOSCOPY-EVERY 5 YRS AGES 18-100 08/16/2023 08/15/2018, 08/15/2018 Diabetes Screening 08/21/2025 08/21/2022, 0 05/03/2022, 05/28/2017, Additional history exists Lipid Panel 08/22/2027 08/21/2022, 10/19/2014 GARDASIL-HPV IMMUNIZATION SERIES Aged Out No longer [...] as of this encounter Visit Diagnoses Diagnosis Neurogenic claudication Spinal stenosis, lumbar region, with neurogenic claudication Family history of colon cancer Family history of malignant neoplasm of gastrointestinal tract Heartburn documented in this encounter Care Teams Water Gas Operator Relationship Specialty Start Date End Date Marla Eric DO [address] [facility], [place] [phone] PCP - General Family Medicine 08/21/22 documented as of this encounter
--- OUTSIDE RECORDS SUMMARY | 2023-02-09 00:37 | External Medical Summary | Summary of Care ---
Author Name Unknown Organization [facility] Address [address] [place] [address] Phone [phone] Care Team Providers Care Abalone Fisherman Name Role Phone Marla Eric DO Primary Car e Provider Reason for Visit * Reason Onset Date Comments Scheduling 08/21/2022 Encounter Details Date Type Department Care Team Description 08/21/2022 Telephone Gastroenterology, [facility] [address] [address] Madelin Gloria PA-C [address] [address] Scheduling Allergies Active Allergy Reactions Severity Noted Date Comments Cortisone 09/22/2014 Flushed Iodinated Contrast Media Hives 03/28/2007 Sulindac Anaphylaxis High 08/11/2014 documented as of this encounter (statuses as of 08/21/2022) Medications Medication Sig Dispensed Refills Start Date [...] as of this encounter (statuses as of 08/21/2022) Active Problems Problem Noted Date Body mass [...] as of this encounter (statuses as of 08/21/2022) Immunizations Name Administration Dates Next Due DTaP [...] encounter Miscellaneous Notes * Telephone Encounter - Madelin Gloria PA-C - 08/21/2022 1:33 PM EDT See [employer] message. Please have her put on the move up list and let her know we can call her if a spot opens before October. Madelin Gloria PA-C 08/21/2022 Department of Gastroenterology documented in this encounter Plan of Treatment Upcoming Encounters Date Type Specialty Care Team Description 08/30/2022 Appointment Radiology 11/23/2022 Hospital Encounter Endoscopy Saan Mallory, DO [address] [place] [address] 11/23/2022 Surgery Endoscopy Sana Mallory, DO [address] [place] [address] COLONOSCOPY FLEXIBLE PROXIMAL DIAGNOSTIC 01/24/2023 Office Visit Gastroenterology Madelin Gloria PA-C [address] [place] [address] Scheduled Procedures Name Priority Associated Diagnoses Date/Ti me COLONOSCOPY FLEXIBLE PROXIMA L DIAGNOSTIC Recall Family history of colon cancer Heartburn 11/23/2022 11:00 AM EDT ESOPHAGOGASTRODUODENOSCOPY ( EGD), FLEXIBLE, TRANSORAL, DIAGNOSTIC Recall Family history of colon cancer Heartburn 11/23/2022 11:00 AM EDT Health Maintenance Due Date Last Done Comments COVID-19 Vaccine (#1) 01/27/1961 Pneumococcal Vaccine: Pediatrics (0 to 5 Years) and At-Risk Patients (6 to 64 Years) (1 - PCV) 1968 Depression Screening, Annual for Pts 12 and Over 1974 HIV Screening 1977 Albumin/Creatinine Ratio 1980 Hepatitis C Screening 1980 Zoster Vaccines (1 of 2) 2012 DTaP,Tdap,and Td Vaccines (2 - Tdap) 10/18/2019 10/17/2009 Lipid Panel 10/20/2019 10/19/2014 *SPIROMETRY ONCE FOR ASTHMA-ADULT 02/22/2022 Influenza Vaccine (FLU shot) (Season Ended) 2022 01/11/2010, 01/28/2009 Mammogram 03/07/2023 03/07/2022, 11/30, 12/01/2013 GFR 05/03/2023 05/03/2022, 05/03, 10/19/2014, Additional history exists COLONOSCOPY-EVERY 5 YRS AGES 18-100 08/16/2023 08/15/2018, 08/15/2018 Diabetes Screening 05/03/2025 05/03/2022, 0 05/28/2017, 10/19/2014, Additional history exists GARDASIL-HPV IMMUNIZATION SERIES Aged [...] filedocumented as of this encounter Care Teams Abalone Fisherman Relationship Specialty Start Date End Date Marla Eric DO [address] [place] [address] PCP - General Family Medicine 08/21/22 documented as of this encounter
--- OUTSIDE RECORDS SUMMARY | 2023-02-09 00:37 | External Medical Summary ---
Author Name Unknown Address Unknown Organization K01[facility] [place] [address] [place] [address] Laboratory Report Ordering Provider Test Date Status MIKE MUNIZLILLY 08/21/2022 12:35:15 Final Observation Date Value Abnormality Reference (Units ) Status Albumin 08/21/2022 12:35:15 4.3 3.8-5.0 (g/dL) Final AST (Aspartate aminotransferase) 08/21/2022 12:35:15 29 10-35 (U/L) Final Alk Phos 08/21/2022 12:35:15 91 35-130 (U/L) Final ALT (Alanine aminotransferase) 08/21/2022 12:35:15 40 Above high normal 10-35 (U/L) Final Bilirubin, Total 08/21/2022 12:35:15 0.2 <=1.2 (mg/dL) Final Bilirubin, Direct 08/21/2022 12:35:15 <0.2 0.0-0.3 (mg/dL) Final Protein 08/21/2022 12:35:15 6.6 6.0-8.3 (g/dL) Final Performing Location [facility] [place] [address] [place] [address]
--- OUTSIDE RECORDS SUMMARY | 2023-02-09 00:37 | External Medical Summary | Summary of Care ---
Author Name Unknown Organization [facility] Address [address] [place] [address] Phone [phone] Care Team Providers Care Care Transitions Nurse Name Role Phone Marla Eric DO Primary Car e Provider Reason for Visit * Reason Onset Date Comments Scheduling 08/21/2022 Encounter Details Date Type Department Care Team Description 08/21/2022 Telephone Gastroenterology, [employer] [address] [phone] Madelin Gloria PA-C [address] [place] [id number] Scheduling Allergies Active Allergy Reactions Severity [...] Notes * Telephone Encounter - MARIA ANTONIA Rodas - 08/21/2022 2:44 PM EDT Spoke to pt, res'd to 09/18/22. Will keep her on the cancellation list. * Telephone Encounter - Madelin Gloria PA-C - 08/21/2022 1:33 PM EDT See [employer] message. Please have her put on the move up list and let her know we can call her if a spot opens before October. Madelin Gloria PA-C 08/21/2022 Department of Gastroenterology documented in this encounter Plan of Treatment Upcoming Encounters Date Type Specialty Care Team Description 08/30/2022 Appointment Radiology 09/18/2022 Hospital Encounter Endoscopy Lovely Stewart, [address] [place] [address] 09/18/2022 Surgery Endoscopy Lovely Stewart, DO [address] [place] [address] COLONOSCOPY FLEXIBLE PROXIMAL DIAGNOSTIC 01/24/2023 Office Visit Gastroenterology Madelin Gloria PA-C [address] [place] [address] Scheduled Procedures Name Priority Associated Diagnoses Date/Ti [...] filedocumented as of this encounter Care Teams Care Transitions Nurse Relationship Specialty Start Date End Date Marla Eric DO [address] [place] [address] PCP - General Family Medicine 08/21/22 documented as of this encounter
--- OUTSIDE RECORDS SUMMARY | 2023-02-09 00:37 | External Medical Summary | Summary of Care ---
Author Name Unknown Organization [facility] Address [address] [place] [address] Phone [phone] Care Team Providers Care Jockey Room Custodian Name Role Phone Marla Eric DO Primary Car e Provider Encounter Details Date Type Department Care Team Description 08/30/2022 Documentation Radiology, [address] [id number] Slim Valenzuela, [place] Allergies Active Allergy Reactions Severity Noted Date Comments Cortisone 09/22/2014 Flushed Iodinated Contrast Media Hives 03/28/2007 Sulindac Anaphylaxis High 08/11/2014 documented as of this encounter (statuses as of 08/30/2022) Medications Medication Sig Dispensed Refills Start Date [...] as of this encounter (statuses as of 08/30/2022) Active Problems Problem Noted Date Body mass [...] as of this encounter (statuses as of 08/30/2022) Immunizations Name Administration Dates Next Due DTaP [...] as of this encounter Progress Notes * RT Isidra - 08/30/2022 5:00 PM EDT Pushed MRI L-SPINE 08-30-22 TO [facility] [employer] documented in this encounter Plan of Treatment Upcoming Encounters Date Type Specialty Care Team Description 09/18/2022 Hospital Encounter Endoscopy Lovely Stewart DO [address] [place] [address] 09/18/2022 Surgery Endoscopy Lovely Stewart DO [address] [place] [address] COLONOSCOPY FLEXIBLE PROXIMAL DIAGNOSTIC 01/24/2023 Office Visit Gastroenterology Madelin Gloria PA-C [address] [place] [address] Scheduled Procedures Name Priority Associated Diagnoses Date/Ti [...] filedocumented as of this encounter Care Teams Jockey Room Custodian Relationship Specialty Start Date End Date Marla Eric DO [address] [place] [address] PCP - General Family Medicine 08/21/22 documented as of this encounter
--- OUTSIDE RECORDS SUMMARY | 2023-02-09 00:37 | External Medical Summary | Summary of Care ---
Author Name Unknown Organization [facility] Address [address] [place] [address] Phone [phone] Care Team Providers Care Vacuum Worker Name Role Phone Marla Eric DO Primary Car e Provider Reason for Visit * Reason Comments Outpatient Testing Encounter Details Date Type Department Care Team Description 08/21/2022 Laboratory Laboratory, [place] [address] [place] [id number] [facility] [address] [place] [id number] Borderline diabetes; Abnormal results of liver function studies Allergies Active Allergy Reactions Severity Noted Date [...] 08/30/2022 Appointment Radiology 11/23/2022 Hospital Encounter Endoscopy Sana Mallory, DO [address] [place] [address] 11/23/2022 Surgery Endoscopy Sana Mallory, [address] [place] [address] COLONOSCOPY FLEXIBLE PROXIMAL DIAGNOSTIC 01/24/2023 Office Visit Gastroenterology Madelin Gloria PA-C [address] [place] [id number] Pending Results Name Type Priority Associated Diagnoses Date /Time HEMOGLOBIN A1C Lab Routine Borderline diabetes Abnormal results of liver function studies 08/21/2022 12:35 PM EDT HEPATIC FUNCTION PANEL Lab Routine Borderline diabetes Abnormal results of liver function studies 08/21/2022 12:35 PM EDT ACUTE HEPATITIS PANEL Lab Routine Borderline diabetes Abnormal results of liver function studies 08/21/2022 12:35 PM EDT LIPID PANEL WITH DIRECT LDL IF TG IS HIGH Lab Routine Borderline diabetes Abnormal results of liver function studies 08/21/2022 12:35 PM EDT Scheduled Procedures Name Priority Associated Diagnoses Date/Ti [...] as of this encounter Visit Diagnoses Diagnosis Borderline diabetes Other abnormal glucose Abnormal results of liver function studies Nonspecific abnormal results of liver function study Family history of colon cancer Family history of malignant neoplasm of gastrointestinal tract Heartburn documented in this encounter Care Teams Vacuum Worker Relationship Specialty Start Date End Date Marla Eric, [address] [place] [address] PCP - General Family Medicine 08/21/22 documented as of this encounter
--- OUTSIDE RECORDS SUMMARY | 2023-02-09 00:37 | External Medical Summary ---
Author Name Unknown Address Unknown Organization [id number]:[facility] [place] - [address] [facility] [address] Laboratory Report Ordering Provider Test Date Status ASHLEE MUNIZ 08/21/2022 12:35:15 Final Observation Date Value Abnormality Reference (Units ) Status Triglyceride 08/21/2022 12:35:15 189 Above high normal <=174 (mg/dL) Final Triglyceride Reference Range s (mg/dL):
<150 Acceptable
150-174 Borderline high
175-499 High
>=500 Very high Cholesterol 08/21/2022 12:35:15 153 <200 (mg /dL) Final Total Cholesterol Reference Ranges (mg/dL):
<200 Desirable
200-239 Borderline high
>=240 High HDL 08/21/2022 12:35:15 36 Below low normal >49 (mg/dL) Final HDL Cholesterol Reference Ra nges (mg/dL):
>=60 High (Desirable)
<50 Low (Undesirable) For Females
<40 Low (Undesirable) For Males NON-HDL CHOLESTEROL 08/21/2022 12:35:15 117 <=159 (mg/dL) Final Non-HDL Cholesterol Referenc e Range (mg/dL):
<100 Target level for high risk ASCVD patient
<130 Optimal for general population
130-159 Near optimal for general population
160-189 Borderline High
190-219 High
>=220 Very High LDL, (calculated) 08/21/2022 12:35:15 79 <= 129 (mg/dL) Final LDL Cholesterol Reference Ra nges (mg/dL):
<70 Target level for high risk ASCVD patient
<100 Optimal for general population
100-129 Near optimal for general population
130-159 Borderline high
160-189 High
>=190 Very high Performing Location LABORATORY [facility] [place] - [address] [facility] [address]
--- OUTSIDE RECORDS SUMMARY | 2023-02-09 00:37 | External Medical Summary ---
Author Name Unknown Address Unknown Organization K01:[facility] - [address] [place] [address] Laboratory Report Ordering Provider Test Date Status ASHLEE MUNIZ 08/21/2022 12:35:15 Final Observation Date Value Abnormality Reference (Units ) Status Hep A IgM 08/21/2022 12:35:15 Negative Negative Final Hep B Core IgM 08/21/2022 12:35:15 Negative Negat irais Final Hep B surface Ag 08/21/2022 12:35:15 Negative Neg ative Final Hep C Ab 08/21/2022 12:35:15 Negative Negative Final Performing Location [facility]AT[facility] - [address] [place] [address]
--- OUTSIDE RECORDS SUMMARY | 2023-02-09 00:37 | External Medical Summary | Summary of Care ---
Author Name Unknown Organization [facility] Address [address] [place] [address] Phone [phone] Care Team Providers Care Windows Server Engineer Name Role Phone Marla Eric DO Primary Car e Provider Reason for Referral * Evaluate & Treat - Unlimited Visits (Within 10 days (routine)) - Authorized Specialty Diagnoses / Procedures Referred By Barbie lerma Referred To Contact Sleep Medicine / Sleep Disorders Diagnoses Obstructive sleep apnea of adult Snoring Obesity Marla Eric DO [address] [place] [address] Referral ID Status Reason Start Date Expiration Date Visits Requested Visits Authorized [id number] Authorized Specialty Services Required 08/22/2022 2 2 Question Answer GS CAD SLEEP MED ADULT REFERRAL All Other Sleep Conditions Referral Priority Within 10 days (routine) Comments Obstructive sleep apnea, snoring, obesity Encounter Details Date Type Department Care Team Description 08/22/2022 Orders Only Access Center, [place] [address] [place] [address] Ext *DO NOT REMOVE THIS DEPARTMENT* [place] [address] Request, External Referral Obstructive sleep apnea of adult*; Snoring; Obesity Allergies Active Allergy Reactions Severity Noted Date Comments Cortisone 09/22/2014 Flushed Iodinated Contrast Media Hives 03/28/2007 Sulindac Anaphylaxis High 08/11/2014 documented as of this encounter (statuses as of 08/22/2022) Medications Medication Sig Dispensed Refills Start Date [...] as of this encounter (statuses as of 08/22/2022) Active Problems Problem Noted Date Body mass [...] as of this encounter (statuses as of 08/22/2022) Immunizations Name Administration Dates Next Due DTaP [...] Appointment Radiology 09/18/2022 Hospital Encounter Endoscopy Lovely Stewart DO [address] [place] [address] 09/18/2022 Surgery Endoscopy Lovely Stewart DO [address] [place] [address] COLONOSCOPY FLEXIBLE PROXIMAL DIAGNOSTIC 01/24/2023 Office Visit Gastroenterology Madelin Gloria PA-C [address] [place] [address] Scheduled Procedures Name Priority Associated Diagnoses Date/Ti me COLONOSCOPY FLEXIBLE PROXIMA L DIAGNOSTIC Recall Family history of colon cancer Heartburn 09/18/2022 11:30 AM EDT ESOPHAGOGASTRODUODENOSCOPY ( EGD), FLEXIBLE, TRANSORAL, DIAGNOSTIC Recall Family history of colon cancer Heartburn 09/18/2022 11:30 AM EDT Scheduled Referrals Name Type Priority Associated Diagnoses Orde r Schedule SLEEP MEDICINE REFERRAL OP Referral Within 10 days (routine) Obstructive sleep apnea of adult Snoring Obesity Ordered: 08/22/2022 Health Maintenance Due Date Last Done Comments [...] history exists Lipid Panel 08/22/2027 08/21/2022, 10/19/2014 Hepatitis C Screening Completed 08/21/2022 GARDASIL-HPV IMMUNIZATION [...] as of this encounter Visit Diagnoses Diagnosis Obstructive sleep apnea of adult- Primary Obstructive sleep apnea (adult) (pediatric) Snoring Other dyspnea and respiratory abnormality Obesity Obesity, unspecified Family history of colon cancer Family history of malignant neoplasm of gastrointestinal tract Heartburn documented in this encounter Care Teams Windows Server Engineer Relationship Specialty Start Date End Date Marla Eric DO [address] [place] [address] PCP - General Family Medicine 08/21/22 documented as of this encounter
--- OUTSIDE RECORDS SUMMARY | 2023-02-09 00:37 | External Medical Summary | Summary of Care ---
Author Name Unknown Organization [facility] Address [address] [place] [address] Phone [phone] Care Team Providers Care Chief Security And Safety Officer Name Role Phone Marla Eric DO Primary Car e Provider Reason for Visit * Reason Comments NEW PATIENT * Evaluate & Treat - Unlimited Visits (Within 10 days (routine)) - Authorized Specialty Diagnoses / Procedures Referred By Barbie lerma Referred To Contact Sleep Medicine / Sleep Disorders Diagnoses Obstructive sleep apnea of adult Snoring Obesity Marla Eric DO [address] [place] [address] Referral ID Status Reason Start Date Expiration Date Visits Requested Visits Authorized [id number] Authorized Specialty Services Required 08/22/2022 2 2 Encounter Details Date Type Department Care Team Description 09/14/2022 Telemedicine Sleep Disorders, [facility] [address] [place] [address] Erwin Barry PA-C [address] [place], [place] [id number] Snoring* Allergies Active Allergy Reactions Severity Noted Date Comments Cortisone 09/22/2014 Flushed Iodinated Contrast Media Hives 03/28/2007 Sulindac Anaphylaxis High 08/11/2014 documented as of this encounter (statuses as of 09/14/2022) Medications Medication Sig Dispensed Refills Start Date [...] as of this encounter (statuses as of 09/14/2022) Active Problems Problem Noted Date Body mass [...] as of this encounter (statuses as of 09/14/2022) Immunizations Name Administration Dates Next Due DTaP [...] as of this encounter Progress Notes * Erwin Barry PA-C - 09/14/2022 3:05 PM EDT Sleep Medicine Evaluation Sleep Disorders Clinic [facility] Patient location: HOME. I was not in a hospital or clinic location. After connecting through televideo, patient was verified with two unique identifiers. Patient (or authorized legal manufacturers representative) was then informed that this was a Telemedicine visit and being conducted confidentially over secure lines. Methods to assure confidentiality were taken. Patient acknowledged consent and understanding of privacy and security of the Telemedicine visit. The patient agreed to participate. Consultation was requested by Dr Marla Eric and a copy of this report is being sent to the provider electronically. HPI: Belén Hurt is a(n) 62 year old female with PMH significant for morbid obesity presenting for evaluation of snoring and poor sleep quality. Trouble sleeping has been going on since last fall. She was very stable on seroquel for a long timebefore this. Insomnia varies from night to night, some nights no trouble and other nights is up allnight. She sleeps on a recliner, has done this for several years due to hip and back pain. 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 Patient reports a typical bedtime of 11:30-12. It takes minutes to hours to fall asleep. Patient awakens multiple times overnight to pee or just wakes up. Patient awakens for the day at 9 or later, feeling very sleepy most days but other days OK at firstand then sleepy. Patient does feel sleepy or tired during the day. Patient does sometimes have difficulty with memory or concentration. Patient does not normally take naps, until recently. Patient does not use caffeine. There is a history of a viral illness or significant head injury prior to the start of daytime sleepiness -- she has had COVID 2-3 times. First time was summer 2019, then again summer 2020. Not hospitalized either time. Patient has not had a nasal fracture or other facial trauma. There has not been a significant weight change recently, but she is the heaviest she has ever been.She was just started on Ozempic. The patient reports having ("+" indicates reports, "-" indicates denies): + Snoring - Observed apneas - Choking/gasping awakenings + Mouth breathing + Acid reflux at night - Nocturia + Morning headaches + Night sweats - Teeth grinding Restless Legs Syndrome Symptoms: + Pain/discomfort in legs at night - Urge to move legs at night - Better with movement - Disrupts sleep *RLS went away when she started Seroquel Parasomnias Symptoms: - Sleepwalking + Sleeptalking and sleep-singing - Dream-enactment + Dreams with short naps - Sleep paralysis - Sleep-related hallucinations - Cataplexy Excessive Daytime Sleepiness: - Drowsy driving + Sleepy with sedentary activity [place] Sleepiness Scale Question 09/14/2022 3:47 PM EDT - Filed by Barbara Rhodes LPN What is the chance you will doze off in the following situation? Sitting and reading High chance of dozing Watching TV High chance of dozing Sitting inactive in a public place, such as a theater or meeting High chance of dozing As a passenger in a car for an hour without a break High chance of dozing Lying down to rest in the afternoon when circumstances permit High chance of dozing When sitting and talking to someone No chance of dozing When sitting quietly after lunch without alcohol High chance of dozing In a car, while stopped for a few minutes in traffic No chance of dozing Score (range: 0 - 24) 18 Functional Outcomes Of Sleep Question 09/14/2022 3:48 PM EDT - Filed by Barbara Rhodes LPN Please complete the following questions. Do you have difficulty concentrating because you are sleepy or tired? Yes, a little Do you have difficulty remembering things because you are sleepy or tired? Yes, a little Do you have difficulty operating a motor vehicle for short distances (less than 100 miles) because you become sleepy? Yes, moderate Do you have difficulty operating a motor vehicle for long distances (more than 100 miles) because you become sleepy? Yes, extreme Do you have difficulty visiting family or friends in their home because you become sleepy or tired?No Has your relationship with family, friends, or work colleagues been affected because you are sleepyor tired? No Do youhave difficulty watching a movie or video because you become sleepy or tired? Yes, extreme Do you have difficulty being as active as you want to be in the evening because you are tired or sleepy? Yes, extreme Do you have difficulty being as active as you want to be in the morning because you are tired or sleepy? Yes, extreme Has your mood been affected because you are sleepy or tired? Yes, extreme Score (range: 10 - 40) 21 Myc Visit Accident Related Question Question 09/14/2022 3:48 PM EDT - Filed by Barbara Rhodes LPN Is this visit related to an accident? (i.e work, motor vehicle) No Sleep Hygiene: Bedroom dark? yes Noise? White noise from fan Bed partner? No, she is in a recliner Pets in bed? Yes sometimes small dog Feel safe? yes Air temperature cool? yes Watch TV in bed? Yes she sleeps in the living room but she turns it off when she is sleeping Clockwatching? Yes sometimes Prior sleep study: yes PMH: Past Medical History: Diagnosis Date Allergic rhinitis [...] performed by Sana Mallory DO at ENDOSCOPY [facility] LAPAROSCOPY,EXPLOR COMMON DUCT 1996 MISCELLANEOUS ORDER ([facility] ONLY) 1978 ankle surgery REMOVAL OF KIDNEY STONE, OVER 2CM REMOVAL OF OVARY(S) Bilateral 2005 REMOVE GALLBLADDER SPINAL FUSION, LUMBAR, COMBINED 04/2014 TOTAL ABD HYSTERECTOMY W/WO REMOVAL OF TUBE(S) 2005 TOTAL HIP REPLACEMENT & PROSTHESIS Right 07/2014 ALLERGIES: Review of patient's allergies indicates: Allergen Reactions Sulindac Anaphylaxis Cortisone Flushed Iodinated Contrast Media Hives MEDS: Outpatient Medications Marked as Taking for the 09/14/22 encounter (Telemedicine) with Erwin Barry PA-C Medication Sig clonazePAM 0.5 MG Oral Tablet (KlonoPIN) TAKE 1 TABLET BY MOUTH EVERY DAY NEEDED Ozempic (0.25 or 0.5 MG/DOSE) 2 MG/1.5ML Solution Pen-injector INJECT 0.25MG UNDER THE SKIN WEEKLY Polyethylene Glycol 3350 17 GM/SCOOP Oral Powder Take 17 g by mouth in the morning. Atorvastatin Calcium 10 MG Oral Tablet Take 2 Tablets by mouth in the morning. DULoxetine HCl 60 MG Oral Capsule Delayed Release Particles (Cymbalta) Takes 2? QUEtiapine Fumarate 100 MG Oral Tablet (SEROquel) QUEtiapine Fumarate 50 MG Oral Tablet (SEROquel) 1 Tablet. Cholecalciferol (VITAMIN D) 2000 units Capsule Take 2,000 Units by mouth daily. amoxicillin (AMOXIL) 500 MG Capsule Prior to dental procedures Cyanocobalamin (B-12) 100 MCG TABS Take by mouth. Meloxicam 15 MG Tablet Take 1 Tablet by mouth in the morning. Triamterene-HCTZ (MAXZIDE) 37.5-25 MG per capsule Take 1 Capsule by mouth in the morning. ATENOLOL 25 MG PO TABS 1 tab daily MULTI-VITAMIN PO TABS 1 daily IMITREX 100 MG OR TABS as directed LUVOX 100 MG OR TABS 300mg daily Additional ROS: HEENT: no chronic sinus problems Heart: no chest pain, no palpitations Lungs: reports intermittent dyspnea, cough, no wheezing Psych: reports OCD, severe anxiety, depression, denies PTSD FHx: known family history of sleep disordered breathing -- mom and brother Social hx: Tobacco use: never Alcohol use: no very rare Drug use: no Physical Exam: IMPRESSION/RECOMMENDATIONS: Snoring, witnessed apneas, excessive sleepiness - suspect MARIA ANTONIA - Discussed the pathophysiology, implications on short- and long-term health, diagnostic evaluation, and likely treatment options of MARIA ANTONIA - Schedule a home sleep apnea test to evaluate for MARIA ANTONIA. Discussed that if the HSAT does not show MARIA ANTONIA, we will recommend in-lab PSG. - If MARIA ANTONIA testing is positive, patient made aware we will start by ordering CPAP, and they will receive notification (via My Chart or phone) of positive test results. They will be contacted by [employer] regarding the CPAP order, and will receive a CPAP from a [employer] company in the following weeks. Once CPAP is received they are to contact our office for a follow up appointment. Made aware to use the machine as much as possible to meet insurance requirement of 70% (at least 4 hours per night).Insurance requires follow-up 30-90 days after starting CPAP. - Avoid driving when sleepy/drowsy. - Discussed the relationship between weight and sleep apnea. Sleep apnea may improve with weight loss. Insomnia Extensive review today with the patient regarding sleep hygiene and CBTI techniques as follows: 1. No screens of any kind for 1 hour prior to set bedtime. Keep lights dim and do a quiet activity such as coloring, knitting, reading a book or magazine, or doing a puzzle. 2. Keep consistent bedtime routine. 3. If unable to fall asleep in 30 minutes, get out of bed and resume quiet activity in a "not too comfortable" place (I.e sit at the kitchen table, not on the couch where they might fall asleep by accident). 4. Once they start to feel sleepy/drowsy, go back to bed and try to go to sleep again. 5. If not asleep in 30 minutes, repeat steps 3-4. 6. Restrict daytime sleep. 7. Do not do anything in bed except sleep or sex. 8. Keep bedroom cool, dark, quiet (other than white noise), safe. She has been on Seroquel for several years and was doing well on taht for sleep up until last fall. She has had COVID 3 times, may be a contributing element of long COVID. Some elements of narcolepsy, such as abnormal sleep behaviors, and her ESS is markedly elevated at 18. Will definitely need PSGis HST is negative. Please verify the following with the patient before ordering WatchPAT study: Does patient have Wifi? Yes Does patient have smart phone? Yes Do they have acrylic nails or nail vietnamese? No: Do they have a pacemaker? No Are they on betablockers? yes: need a washout of medication for 24 hours What is the phone number of the cell phone they will be using? [phone] Follow up after WatchPAT study. Erwin Barry PA-C documented in this encounter Nursing Notes * Barbara Rhodes LPN - 09/14/2022 3:18 PM EDT SLEEP MANAGEMENT CLINIC VIDEO NOTES: Belén Hurt : 1960 MR: [id number] The patient was identified by name and date of .:yes Pt was informed this was a video only visit, and pt agreed to participate.:yes Occupation: hab aid Current [employer] License: No Did your weight : Decreased Do you smoke: no What time do you go to bed: 11:00-12:00 pm How long does it take to fall asleep: hours What is your waketime: 8 am Do you feel that you continue to be fatiqued or sleepy: yes, When: all day Headache in AM: yes How many bathroom trips interrupt sleeptime: once [place] Sleepiness Scale Question 09/14/2022 3:47 PM EDT - Filed by Barbara Rhodes LPN What is the chance you will doze off in the following situation? Sitting and reading High chance of dozing Watching TV High chance of dozing Sitting inactive in a public place, such as a theater or meeting High chance of dozing As a passenger in a car for an hour without a break High chance of dozing Lying down to rest in the afternoon when circumstances permit High chance of dozing When sitting and talking to someone No chance of dozing When sitting quietly after lunch without alcohol High chance of dozing In a car, while stopped for a few minutes in traffic No chance of dozing Score (range: 0 - 24) 18 Functional Outcomes Of Sleep Question 09/14/2022 3:48 PM EDT - Filed by Barbara Rhodes LPN Please complete the following questions. Do you have difficulty concentrating because you are sleepy or tired? Yes, a little Do you have difficulty remembering things because you are sleepy or tired? Yes, a little Do you have difficulty operating a motor vehicle for short distances (less than 100 miles) because you become sleepy? Yes, moderate Do you have difficulty operating a motor vehicle for long distances (more than 100 miles) because you become sleepy? Yes, extreme Do you have difficulty visiting family or friends in their home because you become sleepy or tired?No Has your relationship with family, friends, or work colleagues been affected because you are sleepyor tired? No Do youhave difficulty watching a movie or video because you become sleepy or tired? Yes, extreme Do you have difficulty being as active as you want to be in the evening because you are tired or sleepy? Yes, extreme Do you have difficulty being as active as you want to be in the morning because you are tired or sleepy? Yes, extreme Has your mood been affected because you are sleepy or tired? Yes, extreme Score (range: 10 - 40) 21 Myc Visit Accident Related Question Question 09/14/2022 3:48 PM EDT - Filed by Barbara Rhodes LPN Is this visit related to an accident? (i.e work, motor vehicle) No INSOMNIA SEVERITY INDEX: 1.) Difficulty falling asleep. 3 ( 0- None, 1- Mild, 2- Moderate, 3- Severe, 4- Very Severe) 2.) Difficulty staying asleep. 2 ( 0- None, 1- Mild, 2- Moderate, 3- Severe, 4- Very Severe) 3.) Problems waking up too early. 0 ( 0- None, 1- Mild, 2- Moderate, 3- Severe, 4- Very Severe) 4.) How satisfied/dissatisfied are you with your current sleep pattern? 4 (0- very satisfied, 1- satisfied, 2- moderately satisfied, 3- dissatisfied, 4- very dissatisfied) 5.) How noticeable to others do you think your sleep problem is in terms of impairing the quality of life? 3 (0- Not at all noticeable, 1- A little, 2- moderately satisfied, 3- dissatisfied, 4- very dissatisfied) 6. How worried/distressed are you about your current sleep problem? 3 (0- Not at all worried, 1- A little, 2- Somewhat, 3- Much, 4- Very Much Noticeable) 7.) To what extent do you consider your sleep problem to interfere with your daily functioning: (e.g. daytime fatigue, mood, ability to function at work/daily chores, concentration, memory, mood, etc.) currently? 3 (0-Not at all interfering, 1- A little, 2- Somewhat, 3- Much, 4- Very much interfering) Total Score = 18 Score Categories: 0-7 = No clinically significant insomnia 8-14 = Subthreshold insomnia 15-21 = Clinical insomnia (moderate severity) 22-28 = Clinical insomnia (severe) Barbara Rhodes LPN 09/14/2022 3:20 PM documented in this encounter Plan of Treatment Upcoming Encounters Date Type Specialty Care Team Description 09/18/2022 Hospital Encounter Endoscopy Lovely Stewart DO [address] [place] [address] 09/18/2022 Surgery Endoscopy Lovely Stewart DO [address] [place] [address] COLONOSCOPY FLEXIBLE PROXIMAL DIAGNOSTIC 10/09/2022 PulmDiagnostic Sleep Disorders Gl[facility] [address] [place] [address] 01/24/2023 Office Visit [facility]astroenterology Madelin Gloria PA-C [address] [facility] [address] [place] [address] Scheduled Orders Name Type Priority Associated Diagnoses Orde r Schedule HOME SLEEP TEST W/TYPE 4 MONITOR, 3 CHANNEL Procedures Routine Snoring Ordered: 09/14/2022 Scheduled Procedures Name Priority Associated Diagnoses Date/Ti [...] as of this encounter Visit Diagnoses Diagnosis Snoring- Primary Other dyspnea and respiratory abnormality Family history of colon cancer Family history of malignant neoplasm of gastrointestinal tract Heartburn documented in this encounter Care Teams Chief Security And Safety Officer Relationship Specialty Start Date End Date Marla Eric DO [address] [place] [address] PCP - General Family Medicine 08/21/22 documented as of this encounter
--- OUTSIDE RECORDS SUMMARY | 2023-02-09 00:37 | External Medical Summary | Summary of Care ---
Author Name Unknown Organization [facility] Address [address] [place] [address] Phone [phone] Care Team Providers Care Semiconductor Technician Name Role Phone Jeri Jay Meredith MUÑIZ Primary Care Provider + [phone] Reason for Referral * Precert (Within 10 days (routine)) - Pending Review Specialty Diagnoses / Procedures Referred By Barbie lerma Referred To Contact Radiology Diagnoses Neurogenic claudication Procedures MRI L SPINE WO CONTRAST Arthur Tejeda PA-C [address] [place] [id number] Referral ID Status Reason Start Date Expiration Date V isits Requested Visits Authorized [id number] Pending Review 08/16/2022 999 999 Encounter Details Date Type Department Care Team Description 08/16/2022 Orders Only Access Center, [address] *DO NOT REMOVE THIS DEPARTMENT* [place] [id number] Requisition, External Radiology [address] [place] [address] Neurogenic claudication* Allergies Active Allergy Reactions Severity Noted Date Comments Cortisone 09/22/2014 Flushed Iodinated Contrast Media Hives 03/28/2007 Sulindac Anaphylaxis High 08/11/2014 documented as of this encounter (statuses as of 08/16/2022) Medications Medication Sig Dispensed Refills Start Date [...] as of this encounter (statuses as of 08/16/2022) Active Problems Problem Noted Date Body mass [...] as of this encounter (statuses as of 08/16/2022) Immunizations Name Administration Dates Next Due DTaP [...] Mallory, DO [address] [place] [address] 11/23/2022 Surgery Endoscopy Sana Mallory, DO [address] [place] [address] COLONOSCOPY FLEXIBLE PROXIMAL DIAGNOSTIC 01/24/2023 Office Visit Gastroenterology Madelin Gloria PA-C [address] [place] [address] Scheduled Orders Name Type Priority Associated Diagnoses Orde r Schedule MRI L SPINE WO CONTRAST Medical Imaging Routine Neurogenic claudication Expected: 08/16/2022, Expires: 09/17/2023 Scheduled Procedures Name Priority Associated Diagnoses Date/Ti [...] 01/28/2009 Mammogram 03/07/2023 03/07/2022, 11/30, 12/01/2013 GFR - Renal Function 05/03/2023 05/03/2022, 05/28/2017, 10/19/2014, Additional history exists COLONOSCOPY-EVERY 5 YRS [...] of this encounter Visit Diagnoses Diagnosis Neurogenic claudication- Primary Spinal stenosis, lumbar region, with neurogenic claudication Family history of colon cancer Family history of malignant neoplasm of gastrointestinal tract Heartburn documented in this encounter Care Teams Semiconductor Technician Relationship Specialty Start Date End Date Jeri Jay CRNP [address] [place] [address], [place] [address] PCP - General Nurse Practitioner 09/04/16 documented as of this encounter
--- OUTSIDE RECORDS SUMMARY | 2023-02-09 00:37 | External Medical Summary | Summary of Care ---
Author Name Unknown Organization [facility] Address [address] [place] [address] Phone [phone] Care Team Providers Care Wafer Polisher Name Role Phone Marla Eric DO Primary Car e Provider Reason for Visit * Reason Onset Date Comments Appointment 08/28/2022 Encounter Details Date Type Department Care Team Description 08/28/2022 Telephone Radiology, [facility] [address] [place], [place] [id number] [address] [address] Appointment Allergies Active Allergy Reactions Severity Noted Date Comments Cortisone 09/22/2014 Flushed Iodinated Contrast Media Hives 03/28/2007 Sulindac Anaphylaxis High 08/11/2014 documented as of this encounter (statuses as of 08/28/2022) Medications Medication Sig Dispensed Refills Start Date [...] as of this encounter (statuses as of 08/28/2022) Active Problems Problem Noted Date Body mass [...] as of this encounter (statuses as of 08/28/2022) Immunizations Name Administration Dates Next Due DTaP [...] encounter Miscellaneous Notes * Telephone Encounter - WICHO Verdugo - 08/28/2022 3:51 PM EDT Name: Belén Hurt Do you have any of the following: Pacemaker, stents, heart valves, aneurysm clips? No Have you ever worked with metal or have you ever gotten metal in your eyes? No Have you had a colonoscopy in the last 30 days? No Are you on dialysis? No Do you have any dermals or body piercing's? No Do you wear an insulin pump or CGM? No Pt is claustro and has an order for a pre med from her doctor for her mri exam. WICHO Verdugo documented in this encounter Plan of Treatment Upcoming Encounters Date Type Specialty Care Team Description 08/30/2022 Appointment Radiology 09/18/2022 Hospital Encounter Endoscopy Lovely Stewart DO [address] [place] [id number] 09/18/2022 Surgery Endoscopy Lovely Stewart DO [address] [place] [address] COLONOSCOPY FLEXIBLE PROXIMAL DIAGNOSTIC 01/24/2023 Office Visit Gastroenterology Madelin Gloria PA-C [address] [place] [address] Scheduled Procedures Name Priority Associated Diagnoses Date/Ti [...] filedocumented as of this encounter Care Teams Wafer Polisher Relationship Specialty Start Date End Date Marla Eric DO [address] [place] [address] PCP - General Family Medicine 08/21/22 documented as of this encounter
== END 2023-02-08 13:28 | disposition home or self-care (01) | DRG 454 ==
LOC: ASU 10:09 → 3N 17:28
DX: Y92.234 Operating room of hospital as the place of occurrence of the external cause; I10 Essential (primary) hypertension; G47.30 Sleep apnea, unspecified; Z86.2 Personal history of diseases of the blood and blood-forming organs and certain disorders involving the immune mechanism; G43.909 Migraine, unspecified, not intractable, without status migrainosus; Z47.2 Encounter for removal of internal fixation device; Z88.6 Allergy status to analgesic agent; Z91.041 Radiographic dye allergy status; Y83.8 Other surgical procedures as the cause of abnormal reaction of the patient, or of later complication, without mention of misadventure at the time of the procedure; K21.9 Gastro-esophageal reflux disease without esophagitis; Z79.85 Long-term (current) use of injectable non-insulin antidiabetic drugs; E78.5 Hyperlipidemia, unspecified; Z79.1 Long term (current) use of non-steroidal anti-inflammatories (NSAID); F42.9 Obsessive-compulsive disorder, unspecified; Z79.899 Other long term (current) drug therapy; Z98.1 Arthrodesis status; Z91.048 Other nonmedicinal substance allergy status; M48.062 Spinal stenosis, lumbar region with neurogenic claudication; Z88.8 Allergy status to other drugs, medicaments and biological substances; G97.41 Accidental puncture or laceration of dura during a procedure; F41.8 Other specified anxiety disorders; Z68.38 Body mass index [BMI] 38.0-38.9, adult; E66.9 Obesity, unspecified